=== PATIENT | female | born 1990 | race Caucasian/White ===

== ENCOUNTER 2020-11-27 17:04 | Emergency (ER) | payer OTHER, SELFPAY ==
[2020-11-27 17:10] VITALS: BP 126/89; PULSE 92; RESP 14; TEMP 36.2; O2SAT 97
--- NOTE | 2020-11-27 17:32 | ED.GENADUL_ITS ---
Discharge Plan Disposition Patient Disposition: HOME Condition: Improving Discharge Details Clinical Impression: Contusion of jaw Primary Care Provider: Unknown,Unknown ED Provider: Gloria Sales Home Meds and New Rx's Prescriptions: Continued norgestimate-ethinyl estradiol [Sprintec (28)] 0.25-35 mg-mcg tablet RF: 0 sertraline 100 mg tablet RF: 0 Discharge Instructions Instructions: Contusion in Adults (ED) Additional Instructions: Please continue with Tylenol and/or ibuprofen as needed for discomfort. Please continue to ice the area to help with discomfort. Please follow-up with occupational health to have this rechecked next 1 to 2 weeks. Please continue with soft foods to help with comfort. Please return with any new or worsening symptoms. Discharge Data Discharge Date/Time-TO BE ENTERED AT DEPARTURE: 11/27/20 18:33 Medical Decision Making Patient is a pleasant 30-year-old female. 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 Prior to her checking in, she had been placing a Jones in a combative trauma patient. While placing the Jones, the patient has been sedated and intubated however, she states the patient began to wake up and made her in the left side of her lower jaw. She denies falling. No loss conscious. She states that this did push her bottles into her left eye. Is initially her vision was slightly blurry. This is since resolved. Denies any persistent pain in the left eye. Patient was able to continue placing Jones and continue with her job. Do not see any evidence to suggest significant intracranial injury, eye injury. However, she does have persistent pain along the jawline on the left side. Denies any malocclusion position. Does not have any pain with biting down. Patient and I discussed imaging. she would like to hold off at this time. I do not see any evidence to suggest a fracture time. She would like to hold off on any imaging at this point. Rather, we will give IM Toradol, Tylenol and reassess. After the patient received these medications, she reports that her pain is improved. She will continue to ice area. She will continue to use Tylenol and [place] as needed for discomfort. Return precautions were discussed. I have asked that she follow-up with occupational health for reevaluation in the next 1 to 2 weeks. All of her questions and concerns were addressed and she is in agreement this plan. HPI General Mode of arrival: ambulatory . Date/Time Provider Initiated Documentation: 11/27/20 17:32 . Limitations to Documentation: no limitations . Information obtained by: patient and RN notes reviewed . History of Present Illness 30 year old F presents to the emergency department with the chief complaint of Left lower jaw pain, described as moderate, with intensity rated at 5. Quality is described as aching, and is localized to the face. Patient reports no radiation. Patient started experiencing this minute(s) and it has been constant. No relieving factors improve symptom(s), Other factors that worsen symptoms (Pressure) . Patient notes headaches; denies confusion, chest pain, nausea/vomiting, rash, syncope and weakness. Patient did receive the following treatments prior to arrival, none Related Data Home Medications Medication Instructions Recorded Confirmed norgestimate-ethinyl estradiol tab 11/27/20 11/27/20 [Sprintec (28)] sertraline mg 11/27/20 11/27/20 Allergies Allergy/AdvReac Type Severity Reaction Status Date / Time amoxicillin Allergy Hives Unverified 11/27/20 17:15 General Stated Complaint: Trauma RACHANA: 3 Review of Systems Constitutional Constitutional: Reports as per HPI, Denies chills, Denies fatigue, Denies fe maki(s) and Reports headache(s) Eyes Eyes: Reports as per HPI ENT Ears, Nose, Mouth, and Throat: Reports as per HPI, Denies abnormal hearing, Denies dental pain, Denies vertigo, Reports dizziness (Reports that she felt lightheaded but this is resolving), Denies ear discharge, Denies otalgia, Reports headache(s), Denies lip swelling, Denies epistaxis, Denies neck pain, Denies nose pain and Denies tongue swelling Cardiovascular Cardiovascular: Reports as per HPI, Denies chest pain and Denies lightheadedness Respiratory Respiratory: Denies cough Musculoskeletal Musculoskeletal: Denies neck pain Integumentary/Breasts Skin/Breast: Reports as per HPI, Denies rash, Denies skin pain and Denies skin swelling Neurologic Neurologic: Denies abnormal hearing, Denies vertigo, Reports dizziness (Reports that she felt lightheaded but this is resolving), Reports headache(s) and Denies radicular pain Endocrine Endocrine: Denies fatigue Allergic/Immunologic Allergic/Immunologic: Denies lip swelling and Denies tongue swelling [facility] Social History Smoking/Tobacco Use Status: Never Smoking risk assessment performed?: Yes Substance use type: does not use Current gender identity: female Exam Const General: cooperative, healthy appearing, uncomfortable, no acute distress, well developed and well groomed Nutritional Appearance: average body habitus and well nourished Orientation: alert, awake and oriented x3 HENMT Head: normal to inspection, no palpable skull fracture, normocephalic, atraumatic, no Epstein's sign, no contusions and no lacerations Ears: hearing grossly normal bilaterally and external ears normal General nose exam: external nose normal and nares normal Face and sinus: normal facial exam, sinuses nontender, face symmetric, no crepitus, no ecchymosis, no erythema, no edema, no fluctuance, no lacerations, no maxillary instability and tenderness on the left mandible Face images: 1. Area of discomfort. Pain is elicited with palpation. No appreciable swelling, ecchymosis. No findings on exam to suggest fracture. She is able to bite and break tongue depressor on both sides of her jaw. No evidence of malocclusion. Good range of motion of her TMJ. Mouth: oral mucosae normal, lip normal, moist mucous membranes, No mouth trauma, no muffled voice, no trismus and No restricted motion Teeth and gingiva: dentition normal and gingiva normal Throat: posterior oropharynx normal, tonsils normal and uvula midline Eyes General: appearance normal, both eyes and all related structures Alignment and Position: alignment normal and position normal Periorbital: periorbital findings normal Eyelids: eyelids normal Conjunctivae: conjunctivae normal Pupils: PERRL EOM: EOM intact bilaterally Neck Neck: normal visual inspection and full ROM Resp Effort & Inspection: normal respiratory effort, able to speak in complete sen tences and no respiratory distress Skin General skin exam: no rashes or lesions noted Neuro General: patient alert, patient awake and patient oriented x3 Cranial Nerves: CN's II-XI intact bilaterally Cognition: normal cognition Speech: speech normal Gait: normal gait Psych Appearance: grossly normal and well kempt Mental Status: mental status grossly normal Speech and Movement: speech and movement normal Course Vital Signs Vital signs: Vital Signs Temperature 36.2 C L 11/27/20 17:10 Pulse 92 H 11/27/20 17:10 Respiratory Rate 14 11/27/20 17:10 Blood Pressure 126/89 11/27/20 17:10 Pulse Oximetry 97 11/27/20 17:10 Temperature 36.2 C L 11/27/20 17:10 Temperature Source Temporal Artery Scan 11/27/20 17:10 Pulse 92 H 11/27/20 17:10 Respiratory Rate 14 11/27/20 17:10 Respiratory Effort 11/27/20 17:17 Blood Pressure 126/89 11/27/20 17:10 Blood Pressure Position Supine 11/27/20 17:10 Pulse Oximetry 97 11/27/20 17:10 Oxygen Delivery Method Room Air 11/27/20 17:10 Oxygen Flow Rate 0 11/27/20 17:10 Pain Level 5 11/27/20 17:10
[2020-11-27] MEDS: Acetaminophen 500 MG TAB 1000 MG PO (17:58)
[2020-11-27] MEDS: Ketorolac 30 MG/ML VIAL IVP (17:59)
--- NOTE | 2020-11-27 18:25 | NUR.NOTE ---
Nursing Note: Referral to Occupational Health given to Care Management. Cher Winkler
== END 2020-11-27 18:33 | disposition home or self-care (01) ==
PROVIDERS: Emergency Provider Physician Assistant
DX: S00.83XA Contusion of other part of head, initial encounter (principal); W50.0XXA Accidental hit or strike by another person, initial encounter; Y99.0 Civilian activity done for income or pay
CPT/HCPCS: 96372; 99284; J1885

== ENCOUNTER 2020-12-20 12:56 | Emergency (ER) | payer OTHER, SELFPAY ==
[2020-12-20 13:00] VITALS: BP 142/91; PULSE 124; RESP 18; TEMP 36.4; O2SAT 99
[2020-12-20] MEDS: Ketorolac 60 MG/2 ML VIAL IM (13:54)
--- NOTE | 2020-12-20 13:56 | ED.GENADUL_ITS ---
Discharge Plan Disposition Patient Disposition: HOME Condition: Stable Discharge Details Clinical Impression: Back pain with right-sided radiculopathy Primary Care Provider: Umer Benoit ED Provider: Stef Alan Home Meds and New Rx's Prescriptions: New oxycodone-acetaminophen [Percocet] 5-325 mg tablet 1 tab PO Q8H PRNQty: 8 RF: 0 Continued hydroxyzine HCl 25 mg tablet 25 mg PO PRN PRNRF: 0 cyclobenzaprine 5 mg tablet 5 mg PO TID PRN PRNRF: 0 norgestimate-ethinyl estradiol [Sprintec (28)] 0.25-35 mg-mcg tablet 1 tab PO DAILY RF: 0 sertraline 100 mg tablet 100 mg PO DAILY RF: 0 Discharge Instructions Instructions: Back Pain (ED) Additional Instructions: Percocet as directed, may cause drowsiness and/or constipation. Do not operate machinery while taking this medication. You may want to use lvby-sby-obmwdek stool softeners while taking this medication. Vjiu-twx-yiwfcta anti- inflammatories as directed. Gentle stretching as tolerated. Cool and/or warm compresses every 2 hours for 20 minutes. Please watch for new or worsening symptoms and return to the ER for any concerns. I strongly recommend reaching out your back specialist tomorrow for prompt outpatient reevaluation. Stand Alone Forms: Work Release Discharge Data Discharge Date/Time-TO BE ENTERED AT DEPARTURE: 12/20/20 15:10 Medical Decision Making 30-year-old female presents with 7 out of 10 back pain that began over the weekend after moving. No obvious trauma. Clinically she is uncomfortable but is neurologically intact. No history of IV drug use, no midline point tenderness. She is afebrile. Has taken epue-zac-ppqrbrv medication with little relief. Given the lack of trauma, I do not feel that advanced imaging is ind icated today. Appears to be acute on chronic back pain with radiculopathy. Patient has a history of 2 discectomies. Discussed options, she can get a ride home. We will give a single dose of IM Toradol and morphine and reassess. Upon reassessment patient reports moderate relief of her discomfort. She will continue taking aogc-rfo-fjdphud anti-inflammatory medication. She will stop taking any Flexeril as I see no indication as she has no spasms. I will provide a short-term prescription of narcotic medication. Encouraged to alternate between cool and warm compresses, gentle stretching as tolerated, she will contact her back specialty team on Thursday for prompt outpatient reevaluation. Will be given a work note for the next 2 nights. Encouraged to return to the ER for new or worsening symptoms. Medical Records Medical records reviewed: Yes I reviewed the patient's medical records. HPI General Mode of arrival: ambulatory . Date/Time Provider Initiated Documentation: 12/20/20 12:57 . Limitations to Documentation: no limitations . Information obtained by: patient . HPI Narrative: This is a 30-year-old female, past medical history that includes chronic back pain status post 2 discectomies, in 2012 and 2015. She states that she lives in a chronic pain 2 or 3 out of 10, typically well controlled with Tylenol and/or Motrin. Occasionally her symptoms flareup, but she can usually manage on her own. She states that over the weekend she moved but unsure of any obvious trauma. Pain has worsened since then. Is in her right lower back and travels down her right leg but not past her knee. She denies numbness, tingling, weakness but reports that her legs feel heavy. She denies any fever, history of IV drug use, abdominal pain, nausea, vomiting, vaginal bleeding or discharge, dysuria, hematuria, urinary or bladder incontinence or retention. She took a Flexeril that she had at home with little relief. Related Data Home Medications Medication Instructions Recorded Confirmed norgestimate-ethinyl estradiol 1 tab PO DAILY 11/27/20 12/20/20 [Sprintec (28)] sertraline 100 mg PO DAILY 11/27/20 12/20/20 cyclobenzaprine 5 mg PO TID PRN PRN 12/20/20 12/20/20 hydroxyzine HCl 25 mg PO PRN PRN 12/20/20 12/20/20 oxycodone-acetaminophen [Percocet] 1 tab PO Q8H PRN #8 tab 12/20/20 Previous Rx's Medication Instructions Recorded oxycodone-acetaminophen [Percocet] 1 tab PO Q8H PRN #8 tab 12/20/20 Allergies Allergy/AdvReac Type Severity Reaction Status Date / Time amoxicillin Allergy Hives Unverified 11/27/20 17:15 General Stated Complaint: Nk/Back Pain RACHANA: 3 Review of Systems Constitutional Constitutional: Denies fatigue, Denies fever(s) and Denies weakness Cardiovascular Cardiovascular: Denies chest pain and Denies dyspnea Respiratory Respiratory: Denies cough and Denies dyspnea Gastrointestinal Gastrointestinal: Denies abdominal pain, Denies nausea and Denies vomiting Genitourinary Genitourinary: Denies urinary incontinence and Denies urinary hesitancy Musculoskeletal Musculoskeletal: Reports back pain, Denies numbness, Reports stiffness and Denies tingling Integumentary/Breasts Skin/Breast: Denies rash Neurologic Neurologic: Denies numbness, Denies tingling and Denies weakness Endocrine Endocrine: Denies fatigue [facility] Social History Smoking/Tobacco Use Status: Never Smoking risk assessment performed?: Yes Substance use type: does not use Current gender identity: female Do you feel safe at home: Yes Do you feel safe in your relationship?: Yes Exam Const General: cooperative, healthy appearing and no acute distress Orientation: alert and awake HENWI Head: normal to inspection, normocephalic and atraumatic Mouth: moist mucous membranes Eyes General: appearance normal, both eyes and all related structures Conjunctivae: conjunctivae normal Sclera: sclerae normal Neck Neck: normal visual inspection, full ROM, no meningeal signs, trachea midline and supple Resp Effort & Inspection: normal respiratory effort and able to speak in complete sentences Auscultation: clear to auscultation bilaterally Cardio Rate: regular rate Rhythm: regular rhythm GI Palpation: soft and nontender Back/Spine/Pelvis Back: no CVA tenderness and back tenderness (Diffuse right lumbar, worse over the SI joint. No spasm) Thoracic/Lumbar Spine: straight leg raise positive (Right side, 10 degrees, left negative) Skin General skin exam: no rashes or lesions noted Neuro General: patient alert, patient awake, moves all extremities and no focal motor deficits Motor: muscle tone normal throughout Sensory Exam: no sensory deficits noted Psych Appearance: grossly normal Mental Status: mental status grossly normal Course Vital Signs Vital signs: Vital Signs Temperature 36.4 C L 12/20/20 13:00 Pulse 124 H 12/20/20 13:00 Respiratory Rate 18 12/20/20 13:00 Blood Pressure 142/91 H 12/20/20 13:00 Pulse Oximetry 99 12/20/20 13:00 Temperature 36.4 C L 12/20/20 13:00 Temperature Source Temporal Artery Scan 12/20/20 13:00 Pulse 124 H 12/20/20 13:00 Respiratory Rate 18 12/20/20 13:00 Respiratory Effort Non-Labored 12/20/20 13:04 Blood Pressure 142/91 H 12/20/20 13:00 Blood Pressure Position Sitting 12/20/20 13:00 Pulse Oximetry 99 12/20/20 13:00 Oxygen Delivery Method Room Air 12/20/20 13:00 Oxygen Flow Rate 0 12/20/20 13:00 Pain Level 7 12/20/20 13:00
[2020-12-20 15:17] VITALS: BP 114/77; PULSE 86; RESP 16; TEMP 36.4; O2SAT 98
== END 2020-12-20 15:10 | disposition home or self-care (01) ==
PROVIDERS: Emergency Provider Physician Assistant; PCP Nurse Practitioner Family
DX: M54.16 Radiculopathy, lumbar region (principal); X50.9XXA Other and unspecified overexertion or strenuous movements or postures, initial encounter; Y93.E6 Activity, residential relocation; G89.29 Other chronic pain
CPT/HCPCS: 96372; 99284; J1885

== ENCOUNTER 2021-02-07 00:49 | Outpatient (CLI) | payer OTHER, SELFPAY ==
--- NOTE | 2021-02-07 | DI.MRI_ITS ---
EXAM: MR LUMBAR SPINE WO CLINICAL HISTORY: BACK PAIN, M54.9,H/O DISECTOMIES. TECHNIQUE: Multiplanar multisequence MRI of the Lumbar spine was performed. I note that axial T1 jo ghted sequence was not performed and therefore this is an incomplete examination to the patient retur ns for this sequence. COMPARISON: There are no prior plain films nor MRI scans for comparison at time of this interpretati on. FINDINGS: Five lumbar vertebrae are presumed. The conus medullaris is located slightly low, at L2 level. There is no evidence of conus mass nor sheets bjacent clumping of intrathecal nerve roots to suggest arachnoiditis. There is no evidence of obviou s cord tethering nor thickened lipomatosis filum terminale.. The distal thecal sac is below the S2 l evel which is the lowest aspect of the field of view here. There are no obvious abnormal findings in the visualized sacral canal. On the uppermost aspect of the field of view we note dilatation of the central canal of the spinal co rd at and above the conus medullaris extending to above the T11 level (which is the uppermost aspect of the field of view here). Bones:There are no fractures nor ominous osseous lesions in the lumbar vertebral bodies and visualize d sacrum. There are Modic type 2 sub endplate fatty marrow changes at L4-5 level. With respect to the individual disc levels... T12-L1: Unremarkable L1-2: Normal disc height and signal. No disc herniation nor central canal stenosis.No foraminal steno sis no facet arthropathy. L2-3: Normal disc height. No disc herniation nor central canal stenosis.No foraminal stenosis.No face t arthropathy. L3-4: Normal disc height. No disc herniation or central canal stenosis.No foraminal stenosis.No face t arthropathy. L4-5: At this level there is moderate-advanced disc height loss and Modic type 2 sub endplate fatty m arrow changes. Slight irregularity of posterior osseous elements noted, possibly related to prior pr ocedure but difficult to evaluate without T1 sequence. There is mild left-sided annular bulging but no prominent disc protrusion at this level. Central canal dimensions are within normal limits. Ther e is no significant foraminal stenosis at this level. Mild degenerative changes are noted in the lef t facet joint. Right facet joint unremarkable. L5-S1: This level exhibits mild disc space narrowing. There is a central-slightly right of center sm all disc protrusion at this level which extends posteriorly 3 millimeters and is approximately 12 mil limeters wide. This contacts the thecal sac. Central canal dimensions are lower normal at this leve l. There is no foraminal stenosis at this level. No significant facet arthropathy. Soft tissues: paraspinal soft tissues appear unremarkable.There is no evidence of abnormal epidural nor paraspinal collection, given that there has apparently been previous instrumentation here. IMPRESSION: 1. There is a small central-slightly right of center disc protrusion at L5-S1 level, as described abo ve. There is no prominent central canal stenosis at this level nor foraminal stenosis. 2. Modic type 2 sub endplate fatty marrow changes at L4-5 level which also exhibits decreased disc he ight but no prominent disc herniation nor canal nor foraminal stenosis. 3. In addition to the conus position being slightly low, there is dilatation of the central canal of the visualized lower spinal cord, this extending above the T11 level which is the most superior aspec t of the field of view here. There is no obvious mass within the spinal cord within the field of vie w here. There is also no evidence of obvious cord tethering. However, the next step appear would be MRI imaging of the thoracic and spinal levels to determine the extent of syringomyelia, the possibil ity of a Chiari malformation/tonsillar ectopia, and to rule out a concerning lesion. When the patien t returns for the study she should also undergo axial T1 weighted sequence the lumbar spine which ivan kong apparently not performed today. DATA REPOSITORY:
== END 2021-02-07 01:09 ==
PROVIDERS: PCP Nurse Practitioner Family; Visit Provider Nurse Practitioner Family
DX: M51.27 Other intervertebral disc displacement, lumbosacral region (principal); G95.0 Syringomyelia and syringobulbia
CPT/HCPCS: 72148

== ENCOUNTER 2021-04-25 06:41 | Outpatient (CLI) | payer OTHER, SELFPAY ==
--- NOTE | 2021-04-25 | DI.MRI_ITS ---
Exam(s) MR LUMBAR SPINE WO EXAM: MR LUMBAR SPINE WO CLINICAL HISTORY: DISPLACEMENT OF LUMBAR INTERVERTEBRAL DISC,M51.26. TECHNIQUE: Multiplanar multisequence MRI was performed. COMPARISON: MR MR LUMBAR SPINE WO from 02/07/2021 FINDINGS: Axial T1 weighted images of the lumbar spine were obtained for completion of the examination from 01/21. Apart from degenerative endplate signal changes, marrow signal is within normal limits. The soft tissues are grossly unremarkable. Complete IMPRESSION: DATA REPOSITORY:
[2021-04-25] MEDS: Normal Saline Flush 10 ML SYR IVP (08:04)
[2021-04-25] MEDS: Gadoterate meglumine 20 ML VIAL IVP (08:05)
--- NOTE | 2021-04-25 08:30 | DI.MRI_ITS ---
Exam(s) MR THORACIC SPINE WO/W EXAM: MR THORACIC SPINE WO/W CLINICAL HISTORY: DISPLACEMENT OF LUMBAR INTERVERTEBRAL DISC,M51.26,LT LEG PAIN. TECHNIQUE: Multiplanar multisequence MRI of the Thoracic spine was performed. CONTRAST MATERIAL: IV Contrast: 20 mL of Dotarem contrast administered. COMPARISON: MR MR LUMBAR SPINE WO from 02/07/2021 FINDINGS: Bones: The vertebral body heights are well maintained. Alignment is satisfactory. The signal characte ristics are unremarkable. There is a hemangioma or fatty rest at the inferior aspect of the T12 verte bral body. Cord: The thoracic cord is normal size and signal intensity. There is dilatation of the central cord canal extending from T9 through T12. Discs: No disc herniation or bulge is present. Soft tissues: Normal. There is no evidence of suspicious enhancement. IMPRESSION: 1. 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 2. No evidence of a mass or abnormal enhancement. DATA REPOSITORY:
== END 2021-04-25 07:01 ==
PROVIDERS: PCP Nurse Practitioner Family; Visit Provider Orthopaedic Surgery Orthopaedic Surgery of the Spine
DX: M79.605 Pain in left leg (principal); M51.26 Other intervertebral disc displacement, lumbar region
CPT/HCPCS: 72148; 72157

== ENCOUNTER 2021-06-19 06:01 | Emergency (ER) | payer OTHER, SELFPAY ==
[2021-06-19 06:04] VITALS: BP 142/98; PULSE 111; RESP 18; TEMP 36.4
--- NOTE | 2021-06-19 06:08 | ED.GENADUL_ITS ---
Discharge Plan Disposition Patient Disposition: HOME Condition: Good Discharge Details Clinical Impression: Spasm of muscle of lower back Primary Care Provider: Umer Benoit ED Provider: Ubaldo Cheney Meds and New Rx's Prescriptions: Continued hydroxyzine HCl 25 mg tablet 25 mg PO PRN PRNRF: 0 cyclobenzaprine 5 mg tablet 5 mg PO TID PRN PRNRF: 0 norgestimate-ethinyl estradiol [Sprintec (28)] 0.25-35 mg-mcg tablet 1 tab PO DAILY RF: 0 sertraline 100 mg tablet 100 mg PO DAILY RF: 0 Discharge Instructions Additional Instructions: Home to take it easy rest of today. Heat and gentle stretching to try to relieve the spasm. Ibuprofen or acetaminophen as needed for pain. Use your cyclobenzaprine if needed. Follow-up with primary care or occupational health if not improving. Return to ED for new or worsening pain, neurologic change, bladder or bowel dysfunction. Medical Decision Making Patient will be given dose of IM ketorolac and IM Norflex. She will be released from work to go home and rest. She has her own medications at home as needed for back spasm which is a chronic intermittent problem. If no improvement will need to follow-up with occupational health or primary care. Return to ED for new/worsening pain, neurologic change, bladder or bowel dysfunction. HPI General Mode of arrival: ambulatory . Date/Time Provider Initiated Documentation: 06/19/21 06:08 . Limitations to Documentation: no limitations . Information obtained by: patient and RN notes reviewed . HPI Narrative: Patient here with back pain. Patient has history of back problems with back surgery. 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 She has developed severe back spasm in the left lower back. She has had this in the past. Typically resolves but this seems to just getting worse. She has no neurologic complaints. She is ambulatory but uncomfortable. Related Data Home Medications Medication Instructions Recorded Confirmed norgestimate-ethinyl estradiol 1 tab PO DAILY 11/27/20 06/19/21 [Sprintec (28)] sertraline 100 mg PO DAILY 11/27/20 06/19/21 cyclobenzaprine 5 mg PO TID PRN PRN 12/20/20 06/19/21 hydroxyzine HCl 25 mg PO PRN PRN 12/20/20 06/19/21 Allergies Allergy/AdvReac Type Severity Reaction Status Date / Time amoxicillin Allergy Hives Unverified 11/27/20 17:15 General Stated Complaint: Nk/Back Pain RACHANA: 4 Review of Systems Narrative: As documented in HPI otherwise negative as below. Const: no fever, chills, weakness Resp: no cough, SOB, pleuritic pain CV: no CP, diaphoresis, edema, syncope GI: no abdominal pain, nausea, vomiting, diarrhea Neuro: no headache, numbness, focal weakness, confusion PFSH Medical History No significant past medical history Surgical History Previous back surgery Social History Smoking/Tobacco Use Status: Never Smoking risk assessment performed?: Yes Substance use type: does not use Current gender identity: female Do you feel safe at home: Yes Do you feel safe in your relationship?: Yes Exam Narrative Exam Narrative: Const: WDWN female who appears uncomfortable. HEENT: NC/AT. Normal facial exam. Eyes: Normal conjunctiva and sclera. Neck: Supple. Trachea midline. Lungs: Normal respiratory effort Back: Tenderness with spasm in the left lower lumbar area. Decreased range of motion due to pain and stiffness. No midline tenderness Neuro: A+O x 3. Normal speech, mentation, gait. Cranial nerves II - XII grossly intact. No gross motor or sensory deficit. Ext: No C/C/E. Skin: Warm and dry without rash. Course Vital Signs Vital signs: Vital Signs Temperature 97.5 F L 06/19/21 06:04 Pulse 111 H 06/19/21 06:04 Respiratory Rate 18 06/19/21 06:04 Blood Pressure 142/98 H 06/19/21 06:04 Temperature 97.5 F L 06/19/21 06:04 Temperature Source Skin 06/19/21 06:04 Pulse 111 H 06/19/21 06:04 Respiratory Rate 18 06/19/21 06:04 Blood Pressure 142/98 H 06/19/21 06:04
[2021-06-19] MEDS: Ketorolac 60 MG/2 ML VIAL IM (06:33)
[2021-06-19] MEDS: Orphenadrine 60 MG/2 ML VIAL IM (06:34)
== END 2021-06-19 06:35 | disposition home or self-care (01) ==
PROVIDERS: Emergency Provider Emergency Medicine; PCP Nurse Practitioner Family
DX: M62.830 Muscle spasm of back (principal)
CPT/HCPCS: 96372; 99284; J2360; 99283; J1885

== ENCOUNTER 2021-09-01 17:43 | Emergency (ER) | payer OTHER, SELFPAY ==
[2021-09-01] VITALS (51 sets, daily range): BP systolic 93–125; BP diastolic 71–92; PULSE 96–113; RESP 10–21; TEMP 36.4; O2SAT 95–99
--- NOTE | 2021-09-01 17:45 | RT.EKG_ITS ---
APPROVED REPORT Exam: Resting ECG Reason for Exam: nini matta Patient Location: E HR:98 bpm ECG Measurements Heart Rate 98 AXIS OR 153 P 64 QRSd 86 QRS 50 QT 360 T 27 QTc 460 Conclusion Sinus rhythm...normal P axis, V-rate 60- 99 Probable left atrial enlargement...P >50mS, <-0.10mV V1 Nonspecific T abnormalities, lateral leads...T <-0.10mV, I aVL V5 V6
--- NOTE | 2021-09-01 18:31 | ED.GENADUL_ITS ---
Discharge Plan Disposition Patient Disposition: HOME Condition: Stable Discharge Details Clinical Impression: COVID-19 Primary Care Provider: Umer Benoit ED Provider: Manuel Reed Home Meds and New Rx's Prescriptions: Continued hydroxyzine HCl 25 mg tablet 25 mg PO PRN PRNRF: 0 cyclobenzaprine 5 mg tablet 5 mg PO TID PRN PRNRF: 0 norgestimate-ethinyl estradiol [Sprintec (28)] 0.25-35 mg-mcg tablet 1 tab PO DAILY RF: 0 sertraline 100 mg tablet 100 mg PO DAILY RF: 0 Discharge Instructions Instructions: COVID-19 (Coronavirus Disease 2019) (ED), Instructions for Self Monitoring Oxygen Saturation Additional Instructions: Please maintain isolation until cleared by your physician or health department. Please contact your primary care physician to arrange follow-up. Return to the ER immediately for any worsening or new concerning symptoms. Referrals: Umer Benoit, [employer] [Primary Care Provider] - Medical Decision Making 30-year-old female tested positive for Covid on August 23, now with increased cough today. Patient has shortness of breath only with coughing fits. She has no shortness of breath at baseline. She is saturating well. Patient is tachycardic which I suspect is secondary to her infectious process but will consider pulmonary embolism. Screening EKG was reviewed and interpreted by me to assess for arrhythmia: Please see report, sinus tachycardia D-dimer negative. Labs reviewed and nondiagnostic. No leukocytosis. Plan will be for discharge with outpatient follow-up. Patient was provided pulse oximeter and instructed on when to return if she develop hypoxia or worsening condition. Usual customary discharge instructions were reviewed with the patient. HPI General Mode of arrival: ambulatory . Date/Time Provider Initiated Documentation: 09/01/21 17:47 . Limitations to Documentation: no limitations . Information obtained by: patient . HPI Narrative: 30-year-old female presents with chief complaint of cough. Patient notes she was diagnosed with Covid on 08/23/2021. She has had mostly aches and congestion until today she developed severe cough. Cough comes in fits. She has mild associated shortness of breath when she has coughing fits but does not have shortness of breath at baseline. No chest pain. No leg swelling or calf pain. Patient does not have a pulse ox at home. Patient does know she is fully vaccinated. Related Data Home Medications Medication Instructions Recorded Confirmed norgestimate-ethinyl estradiol 1 tab PO DAILY 11/27/20 09/01/21 [Sprintec (28)] sertraline 100 mg PO DAILY 11/27/20 09/01/21 cyclobenzaprine 5 mg PO TID PRN PRN 12/20/20 09/01/21 hydroxyzine HCl 25 mg PO PRN PRN 12/20/20 09/01/21 Allergies Allergy/AdvReac Type Severity Reaction Status Date / Time amoxicillin Allergy Hives Unverified 11/27/20 17:15 General Stated Complaint: RespSymp RACHANA: 3 Review of Systems Constitutional Constitutional: Reports body ache(s) and Reports fever(s) Cardiovascular Cardiovascular: Denies chest pain Respiratory Respiratory: Reports cough Gastrointestinal Gastrointestinal: Denies abdominal pain Musculoskeletal Musculoskeletal: Reports myalgias [facility] Medical History No significant past medical history Surgical History Previous back surgery Social History Smoking/Tobacco Use Status: Never Smoking risk assessment performed?: Yes Substance use type: does not use Current gender identity: female Do you feel safe at home: Yes Do you feel safe in your relationship?: Yes Exam Const General: cooperative and no acute distress Nutritional Appearance: well nourished Orientation: alert and awake Eyes Conjunctivae: normal conjunctivae Sclera: normal sclerae Neck Neck: trachea midline and supple Resp Effort & Inspection: normal respiratory effort, cough and not labored Auscultation: no rales, rhonchi and no wheezes Cardio Rate: tachycardic Rhythm: regular rhythm GI Palpation: soft, not firm, no guarding, no masses, not rigid and nontender Skin General skin exam: no rashes or lesions noted and turgor normal Neuro General: patient alert, patient awake, patient oriented x3 and tone normal Extrem General: no calf tenderness and no edema Psych Appearance: grossly normal Mental Status: mental status grossly normal Course Vital Signs Vital signs: Vital Signs Temperature 36.4 C L 09/01/21 17:50 Pulse 113 H 09/01/21 17:50 Respiratory Rate 18 09/01/21 17:50 Blood Pressure 119/86 09/01/21 17:50 Pulse Oximetry 99 09/01/21 17:50 Temperature 36.4 C L 09/01/21 17:50 Temperature Source Temporal Artery Scan 09/01/21 17:50 Pulse 113 H 09/01/21 17:50 Respiratory Rate 18 09/01/21 17:50 Respiratory Effort 09/01/21 18:15 Respiratory Depth Normal 09/01/21 18:15 Blood Pressure 119/86 09/01/21 17:50 Blood Pressure Position Sitting 09/01/21 17:50 Pulse Oximetry 99 09/01/21 17:50 Oxygen Delivery Method Room Air 09/01/21 17:50 Oxygen Flow Rate 0 09/01/21 17:50
[2021-09-01 18:58] LABS: Absolute Basophil Count 0.01 10^3/uL (0.0-0.2); Absolute Lymphocyte Count 2.95 10^3/uL (1.2-3.4); Absolute Monocyte Count 0.56 10^3/uL (0.1-0.8); Absolute Neutrophil Count 3.68 10^3/uL (1.2-6.7); Basophils % 0.1; Eosinophils % 1.4; HCT 39.8 % (36.0-46.0); Lymphocytes % 40.4; MCHC 32.7 % (32.0-36.0); MCV 88.8 fL (80-95); MPV 10.1 fL (8.0-11.0); Monocytes % 7.7; Neutrophils % 50.4; Nucleated RBC 0 %; Platelet Count 350 10^3/uL (130-400); RBC 4.48 10^6/uL (3.93-5.22); RDW 12.3 % (11.7-14.6); RDW-SD 39.9 fL
[2021-09-01 19:26] LABS: Albumin 3.6 g/dL (3.4-5.0); BUN 12 mg/dL (7-18); Bilirubin, Total 0.4 mg/dL (0.2-1.0); CREATININE 0.9 mg/dL (0.55-1.02); Calcium 8.8 mg/dL (8.5-10.1); Glucose 93 mg/dL (74-106); Total Protein 7.7 g/dL (6.4-8.2)
[2021-09-01 19:27] LABS: ALT 41 U/L (14-59); AST 23 U/L (15-37); Alkaline Phosphatase 94 U/L (46-116); Anion Gap 7.5 mmol/L (3-11); CO2 30.5 mmol/L (21.0-32.0); Chloride 104 mmol/L (98-107); Potassium 3.7 mmol/L (3.5-5.1); Sodium 142 mmol/L (136-145)
[2021-09-01 19:32] LABS: D-Dimer 280 ng/mlFEU (<500)
[2021-09-01 19:33] LABS: Troponin I < 0.05 ng/mL (<0.06)
== END 2021-09-01 19:54 | disposition home or self-care (01) ==
PROVIDERS: Emergency Provider Student in an Organized Health Care Education/Training Program; PCP Nurse Practitioner Family
DX: U07.1 COVID-19 (principal); R05.1 Acute cough; R06.02 Shortness of breath; R00.0 Tachycardia, unspecified
CPT/HCPCS: 36415; 80053; 93005; 99285; 84484; 85025; 85379; 93010; 99284

== ENCOUNTER 2021-09-24 16:06 | Outpatient (REF) | payer OTHER, SELFPAY ==
[2021-09-26 11:00] LABS: Measles IgG Antibody Positive (See Note); Mumps Antibody IgG Positive (See Note)
[2021-09-26 11:02] LABS: Rubella IgG Ab (UVM) Positive (See Note)
== END 2021-09-24 16:07 | disposition home or self-care (01) ==
LOC: LBN 16:06
PROVIDERS: PCP Nurse Practitioner Family; Visit Provider Physician Assistant
DX: Z02.0 Encounter for examination for admission to educational institution (principal)
CPT/HCPCS: 86735; 86762; 86765

== ENCOUNTER 2021-12-13 09:06 | Emergency (ER) | payer OTHER, SELFPAY ==
[2021-12-13 09:11] VITALS: BP 135/89; PULSE 140; RESP 18; TEMP 36.7; O2SAT 100
--- NOTE | 2021-12-13 09:30 | W.ED.GENAD ---
Discharge Plan Disposition Patient Disposition: HOME Condition: Stable Discharge Details Clinical Impression: Acute lumbar radiculopathy Primary Care Provider: Umer Benoit ED Provider: Belle Page Home Meds and New Rx's Prescriptions: New orphenadrine citrate 100 mg tablet extended release 100 mg PO BID Qty: 14 RF: 0 oxycodone 5 mg capsule 5 mg PO Q8H PRNQty: 5 RF: 0 dexamethasone [Decadron] 4 mg tablet 4 mg PO DAILY Qty: 5 RF: 0 Continued hydroxyzine HCl 25 mg tablet 25 mg PO PRN PRNRF: 0 cyclobenzaprine 5 mg tablet 5 mg PO TID PRN PRNRF: 0 norgestimate-ethinyl estradiol [Sprintec (28)] 0.25-35 mg-mcg tablet 1 tab PO DAILY RF: 0 sertraline 100 mg tablet 100 mg PO DAILY RF: 0 Discharge Instructions Additional Instructions: No lifting greater than 5 pounds, light stretches as tolerated Continue to be active Take Decadron for the next 5 days Follow-up with your neurosurgeon and PCP as tolerated Referrals: Milan Enriquez [ NON-[facility] STAFF PHYSICIAN] - Discharge Data Discharge Date/Time-TO BE ENTERED AT DEPARTURE: 12/13/21 11:08 Medical Decision Making <BALDEMAR Barrera - Last Filed: 12/14/21 08:46> After morphine, Norflex, steroid, patient symptomatically improved, ambulatory with steady gait No clinical evidence of cauda equina syndrome No fever or history of IV drug abuse No indication on my clinical exam today for emergent MRI and patient did have MRI of lumbar spine and thoracic spine that was reviewed from April 2021 that showed syringomyelia We will follow-up with neurosurgery in the outpatient setting and her PCP Does not work until next Thursday, does not need a work note supplied Will place on prednisone taper, a very small amount of opiate analgesia for home with risks discussed, and we will change her Flexeril to Norflex Return precautions discussed with patient understanding Medical Records Medical records reviewed: Yes I reviewed the patient's medical records. Lab Data Lab results reviewed: Yes I reviewed the patient's lab results. <Manuel Reed MD - Last Filed: 12/21/21 08:37> Patient seen, examined, and discussed with BALDEMAR Page. I agree with treatment plan as discussed/documented. HPI <BALDEMAR Barrera - Last Filed: 12/14/21 08:46> General Mode of arrival: wheelchair. Date/Time Provider Initiated Documentation: 12/13/21 09:15. Limitations to Documentation: no limitations. Information obtained by: patient. HPI Narrative: This 31-year-old female with history of previous back surgery/low back pain presents with report of right mid and lower back pain which radiates into her right lower extremity. She states that she was doing a kettle villatoro workout yesterday afternoon and she felt high after the workout but denies any known trauma. She states she was lifting 15 pounds kettle bells. She took some ibuprofen and Tylenol last evening and despite that the pain continued to worsen. She states that secondary to pain her right leg has been giving out . She denies any fever or chills. She denies any strength or sensation changes to her extremities. She denies any saddle anesthesia. She has no history of IV drug abuse. She denies any chance of . The pain is reportedly exacerbated with movement. Related Data Home Medications Medication Instructions Recorded Confirmed norgestimate-ethinyl estradiol 1 tab PO DAILY 11/27/20 12/13/21 [Sprintec (28)] sertraline 100 mg PO DAILY 11/27/20 12/13/21 cyclobenzaprine 5 mg PO TID PRN PRN 12/20/20 12/13/21 hydroxyzine HCl 25 mg PO PRN PRN 12/20/20 12/13/21 dexamethasone [Decadron] 4 mg PO DAILY #5 tab 12/13/21 orphenadrine citrate 100 mg PO BID #14 tab 12/13/21 oxycodone 5 mg PO Q8H PRN #5 cap 12/13/21 Previous Rx's Medication Instructions Recorded dexamethasone [Decadron] 4 mg PO DAILY #5 tab 12/13/21 orphenadrine citrate 100 mg PO BID #14 tab 12/13/21 oxycodone 5 mg PO Q8H PRN #5 cap 12/13/21 Allergies Allergy/AdvReac Type Severity Reaction Status Date / Time amoxicillin Allergy Hives Unverified 12/13/21 09:16 droperidol AdvReac Unverified 12/13/21 09:16 General Stated Complaint: Nk/Back Pain RACHANA: 3 Review of Systems <BALDEMAR Barrera Last Filed: 12/14/21 08:46> All systems reviewed & are unremarkable except as noted in HPI and below PFSH <BALDEMAR Barrera - Last Filed: 12/14/21 08:46> All Active Problems Spasm of muscle of lower back (Acute) COVID-19 (Acute) Acute lumbar radiculopathy (Acute) Previous back surgery (Acute) Medical History No significant past medical history Surgical History Previous back surgery Social History Smoking/Tobacco Use Status: Never Smoking risk assessment performed?: Yes Alcohol Intake: current Alcohol Intake frequency: holidays/special occasions only Drug use: Never Substance use type: does not use Current gender identity: female Do you feel safe at home: Yes Do you feel safe in your relationship?: Yes Exam <BALDEMAR Barrera Last Filed: 12/14/21 08:46> Const General: cooperative, comfortable and acute distress Eyes Conjunctivae: conjunctivae normal Resp Effort & Inspection: normal respiratory effort Auscultation: clear to auscultation bilaterally Cardio Rate: regular rate Rhythm: regular rhythm Other: Distal pulses intact GI Other: No CVA tenderness, no abdominal tenderness Back/Spine/Pelvis Other: No midline tenderness, paraspinal tenderness in the lumbar spine region Skin General skin exam: no rashes or lesions noted Neuro General: patient alert and patient oriented x3 Speech: speech normal Gait: normal gait Sensory Exam: no sensory deficits noted Other: Strength and sensation intact distally, DTRs intact all 4 extremities Negative straight leg raise Extrem Other: No calf swelling or tenderness Course <BALDEMAR Barrera Last Filed: 12/14/21 08:46> Vital Signs Vital signs: Vital Signs Temperature 36.7 C 12/13/21 09:11 Pulse 140 H 12/13/21 09:11 Respiratory Rate 18 12/13/21 09:11 Blood Pressure 135/89 12/13/21 09:11 Pulse Oximetry 100 12/13/21 09:11 Temperature 36.7 C 12/13/21 09:11 Temperature Source Temporal Artery Scan 12/13/21 09:11 Pulse 140 H 12/13/21 09:11 Respiratory Rate 18 12/13/21 09:11 Respiratory Effort Non-Labored 12/13/21 09:14 Blood Pressure 135/89 12/13/21 09:11 Blood Pressure Position Sitting 12/13/21 09:11 Pulse Oximetry 100 12/13/21 09:11 Oxygen Delivery Method Room Air 12/13/21 09:11 Oxygen Flow Rate 0 12/13/21 09:11 Pain Level 8 12/13/21 09:15
[2021-12-13] MEDS: MORPHine 4 MG/ML SYR IVP (09:34)
[2021-12-13] MEDS: Orphenadrine 60 MG/2 ML VIAL IVP (09:35)
[2021-12-13] MEDS: Ketorolac 15 MG/ML VIAL IVP (09:35)
[2021-12-13] MEDS: Dexamethasone 4 MG/ML VIAL IVP (09:59)
[2021-12-13 10:57] VITALS: BP 133/98; PULSE 114; RESP 16; TEMP 37; O2SAT 98
== END 2021-12-13 11:08 | disposition home or self-care (01) ==
PROVIDERS: Emergency Provider Physician Assistant; PCP Nurse Practitioner Family
DX: M54.16 Radiculopathy, lumbar region (principal)
CPT/HCPCS: 36415; 96374; 96375; 99284; J2360; 99283; J1100; J1885; J2270

== ENCOUNTER 2022-03-04 01:23 | Outpatient (CLI) | payer OTHER, SELFPAY ==
--- NOTE | 2022-03-04 10:00 | DI.MRI_ITS ---
Exam(s) MR LUMBAR SPINE WO EXAM: MR LUMBAR SPINE WO CLINICAL HISTORY: BACK PAIN, M54.9; NEW ONSET WEAKNESS W/RT FOOT DORSIFLEXION. TECHNIQUE: Multiplanar multisequence MRI of the Lumbar spine was performed. COMPARISON: MR MR LUMBAR SPINE WO from 02/07/2021 MR MR LUMBAR SPINE WO from 04/25/2021 FINDINGS: Bones: The last intervertebral disc space is designated the L5/S1 level for the numbering purpose of this examination. The vertebral body heights are well maintained. Alignment is satisfactory. Endpla te degenerative signal changes are seen at L3-4, L4-L5 and L5-S1. Cord: The conus tip ends at the L2 level. There is again seen a syrinx in the distal cord. It is u nchanged compared to the prior examination. T12-L1: No disc herniations or bulges are present. No central spinal canal or neural foraminal stenos is. L1-2: No disc herniations or bulges are present. No central spinal canal or neural foraminal stenosis . L2-3: No disc herniations or bulges are present. No central spinal canal or neural foraminal stenosis . L3-4: No disc herniations or bulges are present. No central spinal canal or neural foraminal stenosis . L4-5: No disc herniations or bulges are present. No central spinal canal or neural foraminal stenosis . L5-S1: There is a small central disc herniation. No significant nerve root compression or central sp inal canal stenosis results. No neural foraminal stenosis is present. Soft tissues: The visualized SI joints and sacrum are well maintained. The paraspinal soft tissues ar e unremarkable. Visualized abdominal organs: Unremarkable. IMPRESSION: 1. Persistent small central disc herniation at L5-S1. No significant nerve root compression, central spinal canal or neural foraminal stenosis results. 2. Stable syrinx in the distal spine cord. 3. Degenerative changes in the lower lumbar spine. DATA REPOSITORY:
== END 2022-03-04 01:43 ==
PROVIDERS: PCP Nurse Practitioner Family; Visit Provider Physician Assistant
DX: M54.59 Other low back pain (principal); R29.2 Abnormal reflex; M51.27 Other intervertebral disc displacement, lumbosacral region; M47.817 Spondylosis without myelopathy or radiculopathy, lumbosacral region
CPT/HCPCS: 72148

== ENCOUNTER 2022-08-28 15:32 | Outpatient (CLI) | payer OTHER, SELFPAY ==
--- NOTE | 2022-08-28 | DI.RAD_ITS ---
Exam(s) XR FOOT LT COMPLETE EXAM: XR FOOT LT COMPLETE CLINICAL HISTORY: LT HEEL PAIN, M79.672 TECHNIQUE: COMPARISON: No exams were available for comparison FINDINGS: Three views were obtained. Alignment appears within normal limits. No bony or soft tissue abnormali ty seen. IMPRESSION: RADIATION DOSE DELIVERED: Total DLP
--- OUTSIDE RECORDS SUMMARY | 2022-08-28 15:49 | XMS_ITS | Encounter Summary ---
:1990 [place] [address] Care Team Providers Name Role Phone Unavailable Primary Care Provider Unavailable Encounter Details Date Type Department Care Team Description 02/07/2021 Ancillary Procedure Radiology Library at Arlene Arguello DO [facility] [place] [address] [place] [address] [phone] (Wo rk) Social History Tobacco Use Types Packs/Day Years Used Date Never Smoker Smokeless Tobacco: Never Used Alcohol Use Standard Drinks/Week Comments Yes 1.7 (1 standard drink = 0.6 oz pure alco hol) 1 drink a week socially Alcohol Habits Answer Date Recorded How often do you have a drink containing Not asked alcohol? How many drinks containing alcohol do you have Not asked on a typical day when you are drinking? How often do you have six or more drinks on one Not asked occasion? Comment: 1 drink a week socially 11/04/2017 Sex Assigned at Date Recorded Not on file documented as of this encounter Plan of Treatment Not on filedocumented as of this encounter Procedures Procedure Name Priority Date/Time Associated Diagnosis Comme nts FILM LIBRARY Routine 02/07/2021 12:00 AM Results for this STORAGE ONLY MR EDT procedure ar e in SPINE the results section. documented in this encounter Results Film Library- Storage Only MR Spine (02/07/2021 12:00 AM EDT) Specimen (Source) Anatomical Location Collection Method / Collectio n Time Received Time / Laterality Volume Narrative SABRA PAYNE - 05/16/2021 3:14 PM EDT This exam is auto-finalizing. It's purpo se is for storage only. Jesus Arguello V, IMG FILM LIBRARY ORDERABLES Performing Organization Address City/State/ZIP Code Phon e Number RAD [facility] [place], [place] documented in this encounter Visit Diagnoses Not on filedocumented in this encounter
--- OUTSIDE RECORDS SUMMARY | 2022-08-28 15:49 | XMS_ITS | Encounter Summary ---
:1990 Author Organization [facility] Address [address] [place] [address] Care Team Providers Name Role Phone Keena Domínguez APRN Primary Care Provider Reason for Visit Reason Comments Pain Management new patient, eval for RACHANA Consultation (Routine) - Closed Specialty Diagnoses / Procedures Referred By Contact Refer red To Contact Pain Management Diagnoses Lower extremity pain asses patient for epidural steroid injection Sloan Ospina MD [facility] [address] [place] [address] [place] [address] Phone: Fax: Referral ID Status Reason Start Date Expiration Date Visits Requ ested Visits Authorized [id number] Closed 01/13/2019 01/13/2020 1 1 Encounter Details Date Type Department Care Team Description 01/26/2019 Office Visit Pain Management at [facility], Post laminectomy [place] syndrome [facility] [address] [place] [phone] Social History Tobacco Use Types Packs/Day Years [...] on file documented as of this encounter Last Filed Vital Signs Vital Sign Reading Time Taken Comments Blood Pressure 129/85 01/26/2019 9:57 AM EST Pulse 74 01/26/2019 9:57 AM EST Temperature - - Respiratory Rate - - Oxygen Saturation 100% 01/26/2019 9:57 AM EST Inhaled Oxygen Concentration - - Weight 95.3 kg (210 lb) 01/26/2019 9:57 AM EST Height - - Body Mass Index 36.12 12/27/2018 3:10 PM EST documented in this encounter Patient Instructions Patient InstructionsHuEric chan PA - 01/26/2019 10:00 AM EST Interventions: ?? Schedule LESI (caudal?) TBD by provider doing procedure Medications: ?? No new medications at this time Rehabilitation: ?? None at this time ?? Will consider a round of Chelsie therapy following procedure Psychological: ?? None at this time Follow up: ?? F/u two weeks after LESI procedure documented in this encounter Progress Notes Eric Hidalgo PA - 01/26/2019 10:00 AM EST Images from the original note were not included. PAIN CLINIC CONSULTATION Date of Consultation: January 26, 2019 Referring Physician: Sloan Ospina MD Reason for request of consultation: Evaluation of chronic low back pain s/p surgery in 2017 (L4/5 laminectomy and discectomy) Chief Complaint: Chronic low back pain History of Present Illness: Ms. Sims is a 28 y.o. year-old female who presents to the pain clinic for evaluation of chronic low back pain s/p surgery in 2016 and an earlier surgery in 2013. She saw primary care 12/10/2018 where this history was noted about her back pain: [facility]-is where she had her back surgery was seen in 2017 they suggested gabapentin ?? NEW No feeling outside of R foot right now for 2 weeks ?? Since 2016 had no feeling in R calf X 14 days no feeling into R pinky to Had to leave [employer]-ended up in ER 3 times with that job from back pain Can not wipe her behind due to back [place] time was in PT was last December-went for 4 sessions Did the [employer], [employer], She was working on [employer] at [employer]. The only incident she can remember was with a patient who was being transferred. A strap broke and she twisted. She ended up trying PT. She was getting spasms and lost sensation in her right foot. The second surgery helped resolve symptoms. But, since the second surgery, that incident above is the only one she can think of that might have generated her new symptoms. Now she's having severe muscle spasms on lower right back at night. She's not lifting as much at work. She is still getting shooting pain down the leg--all the way to her right, lateral foot. She feels unstable. She still exercises regularly. But, she feels like the instability is coming right from her surgical site. Patient denies loss of bowel or bladder function. PAIN ASSESSMENT: Description: Shooting, sharp in the leg and muscular tightness in low right back Location: see above Weakness, numbness, tingling: yes Saddle Anesthesia: none Other associated symptoms: feeling unstable Alleviating factors: none she's identified (went to [facility] ED 3x last year--got Flexeril/toradol and that worked for short term fix) Aggravating factors: standing for too long a time; heavy lifting/axial weighting Pain today: 4/10 Best in past week: 2/10--lying down at night--if not getting twinge spasms Worst in past week: 5/10--prolonged standing (does 12 hr shifts) PAST THERAPIES: Acetaminophen: takes about 3 grams a day (helps some) NSAID: advil--about 2400 mg on a bad day (helps some) Opioids: none Storage of opioids:NA Antidepressants: was on amitriptyline but not for this Anticonvulsants: gabapentin--was taking 100mg at night after surgery (didn't help just upset her stomach) Muscle relaxants: Flexeril helps some Topicals: lidocaine cream and patches--help some but doesn't help with spasms Herbal supplements/vitamins: tried tumeric (didn't do anything) Injections: none Surgery: see HPI Physical Therapy: last did beginning of 2018--not helpful TENS: tried at PT Acupuncture: none Chiropractic: tried, relieved some spasms for short period of time Massage: none CBT,Meditation/Imagery: none Yoga/Mick Chi/ Movement: none Marijuana: none Other: heat better than cold but not much relief Current Medications: Outpatient Medications Marked as Taking for the 01/26/19 encounter (Office Visit) with Eric Hidalgo PA Medication Sig Dispense Refill ??? multivitamin (THERAGRAN) Tablet Take 1 tablet by mouth daily. ??? MONO-LINYAH 0.25-35 mg-mcg Tablet TAKE ONE TABLET BY MOUTH EVERY DAY 84 tablet 3 ??? sertraline (ZOLOFT) 25 mg Tablet Take 2 tablets by mouth daily. 180 tablet 3 ??? ibuprofen (ADVIL;MOTRIN) 800 mg Tablet Take 800 mg by mouth every 6 hours as needed for Pain. ??? acetaminophen (TYLENOL) 325 mg Tablet Take 650 mg by mouth 2 times daily. Allergies & Adverse Reactions: Latex; Amoxicillin; and Food allergy formula [[id number]-selen-brom] Problem List: Patient Active Problem List Diagnosis Code ??? Obesity E66.9 ??? Family history of diabetes mellitus (father) Z83.3 ??? Acne L70.9 ??? Gastroparesis K31.84 ??? SVT (supraventricular tachycardia) I47.1 ??? Health care maintenance Z00.00 ??? Previous back surgery Z98.890 ??? Annual physical exam Z00.00 ??? Adjustment disorder with anxiety F43.22 ??? Difficulty sleeping G47.9 ??? Lumbosacral radiculopathy at S1 M54.17 Social History: Social History Socioeconomic History ??? Marital status: Single Spouse name: Not on file ??? Number of children: Not on file ??? Years of education: Not on file ??? Highest education level: Not on file Social Needs ??? Financial resource strain: Not on file ??? Food insecurity - worry: Not on file ??? Food insecurity - inability: Not on file ??? Transportation needs - medical: Not on file ??? Transportation needs - non-medical: Not on file Occupational History ??? Not on file Tobacco Use ??? Smoking status: Never Smoker ??? Smokeless tobacco: Never Used Substance and Sexual Activity ??? Alcohol use: Yes Alcohol/week: 1.0 oz Types: 2 Standard drinks or equivalent per week Comment: 1 drink a week socially ??? Drug use: No ??? Sexual activity: Yes Partners: Male control/protection: Pill, Other-see comments Comment: Barrier and pill Other Topics Concern ??? 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 She lives with her brother in [place], [place]. Family History Family History Problem Relation Age of Onset ??? Heart Disease Mother ??? Coronary Artery Disease Mother ??? Depression Mother ??? Anesthesia Reaction Mother ??? Diabetes Father ??? Hypertension Father ??? Type 2 Diabetes Father ??? Hyperlipidemia Father ??? Asthma Brother ??? Allergies Brother ??? Breast Cancer Maternal Grandmother ??? Osteoporosis Maternal Grandmother ??? Ovarian Cancer Maternal Grandmother ??? Parkinsonism Maternal Grandfather ??? Osteoporosis Paternal Grandmother ??? Heart Disease Paternal Grandmother ??? Alcohol Abuse Paternal Grandfather ??? Liver Disease Paternal Grandfather ??? Cerebrovascular Accident Maternal Uncle Past Medical History: Past Medical History: Diagnosis Date ??? Acid reflux ??? Adjustment disorder with anxiety 12/10/2018 ??? Gastroparesis ??? H/O colonoscopy 07/19/2014 ??? H/O diagnostic ultrasound 04/12/2014 Impression: Normal thyroid sonogram ??? H/O endoscopy Had 3-4 years ago due to vomiting and diarrhea. ??? H/O x-ray of lumbar spine 08/10/2013 Impression: Mild evidence of degenerative disc disease in the lower lumbar spine. ??? History of MRI of spine 08/25/2013 Impression: 1. Large L4-5 disc extrusion with associated moderately severe central canal stenosis. 2. Nonstenotic degenerative changes at L5-S1. ??? Lumbago with sciatica, right side ??? SVT (supraventricular tachycardia) 2015 in the past was controlled with atenolol age 24-resting heart rate is 90's no palp Past Surgical History: Past Surgical History: Procedure Laterality Date ??? APPENDECTOMY 04/19/2010 ??? BACK SURGERY 11/15/2013 Back surgery in 2012, and 2016 ??? CYST REMOVAL Left 2011 Cyst removal left wrist. ??? CYST REMOVAL Left Removal of ganglion cyst of left wrist ??? LUMBAR DISC SURGERY 1st. 10/2013. 2nd. 08/2016. L4,5 shaved at [facility]. ??? PRO COLONOSCOPY, DIAGNOSTIC 06/16/2012 COLONOSCOPY, DIAGNOSTIC performed by DANICA REYNA at [facility] END[facility]COPY ??? PRO COLONOSCOPY, DIAGNOSTIC 07/20/2014 COLONOSCOPY, DIAGNOSTIC performed by Missy David MD at [facility] ENDOSCOPY ??? PRO UPPER GI ENDOSCOPY, DIAGNOSTIC 07/20/2014 EGD, UPPER GI ENDOSCOPY performed by Missy David MD at [facility] END[facility]COPY ??? UPPER GI ENDOSCOPY, EXAM 06/16/2012 UPPER GI ENDOSCOPY performed by DANICA REYNA at [facility] END[facility]COPY ??? 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 [facility] Prescription Monitoring Program was checked and no concerns was found. Review of Systems: Constitutional Denies Fevers, Chills, loss of weight HEENT Denies new hearing problems, vision problems or dental problems. Cardiovascular Denies chest pain, palpitations, ID, hypertension, heart murmur. Respiratory Denies coughgetting over a cold, SOB, wheezing, asthma. GI Denies N/V, Hepatits, yellow jaudice, liver problems. Stool incontinence Denies kidney problems, infections, blood in urine, or kidney stones Musculoskeletal Denies other joint pains, see HPI. Neurologic Denies seizures, convulsions, stroke, shock, frequent headaches, dizziness or passing out. Sleep is okay. Gets 6-8 hours some nights and 4-6 other nights. Psychiatric Denies depression, anxiety taking sertraline, stress or suicidal ideation. Hematologic Denies prolonged bleeding, easy bruising, lymph gland swelling Dermatologic Denies rashes, or other skin problems RISK ASSESSMENT: Smoking: none Alcohol:How often do you have a drink containing alcohol ? occasional Are you now or have you ever used illegal drugs or used a prescription drug for a non-medical reason? none Are you now or in past received methadone or suboxone (buprenorphine) for substance abuse? none Ever participated in drug or alcohol rehabilitation program? none Share your pain medications or accepted pain medications from family/friends? none Ever been incarcerated? none Opioid Risk Tool Female Male 1. Family history of Substance Abuse Alcohol [] 1 [x] 3 Illegal Drugs [] 2 [] 3 Prescription Drugs [] 4 [] 4 2. Personal History of Substance Abuse Alcohol [] 3 [] 3 Illegal Drugs [] 4 [] 4 Prescription Drugs [] 5 [] 5 3. Age (doug box if 16-45) [] 1 [] 1 4. History of Preadolescent Sexual Abuse [] 3 [] 0 5. Psychological Disease Attention Deficit Disorder, Obsessive Compulsive D/o, Bipolar, Schizophrenia [] 2 [] 2 Depression [] 1 [] 1 TOTAL: 3 Comments about ORT in relation to this patient: 3 ORT score, low risk Opioid Risk Category: Low risk 0-3 Moderate risk 4-7 High risk >=8 Physical Exam: Most Recent Vitals: 01/26/19 0957 BP: 129/85 Pulse: 74 SpO2: 100% PainSc: 4 Constitutional AxOx3, NAD, well developed, well groomed, sitting comfortably in chair. Psychiatric Affect is congruent with mood. Goal directed thought process. Good eye contact. No pain behaviors, communicates clearly and answers questions appropriately. Eyes No scleral icterus, pupils midline/symmetric, EOM full, conjunctiva clear. ENT moist mucous membranes; tongue protrudes midline. Hearing grossly intact. Lungs Clear to auscultation bilaterally Cardiovascular Reg RR without murmur, Skin no rash, asymmetric hair loss, or shiny skin. Musckuloskeletal Inspection of spine reveals good posture, without scoliosis or kyphosis. Gait is normal. Toe and heel steps without difficulty. Trunk flexion to 60 degrees doescause back pain. Trunk extension to 10 degrees doescause back pain. Facet loading maneuvers does not cause back pain Tenderness to palpation detected over right piriformis muscle. Straight leg raise on the right.positive at 60 degrees and left negative RENETTA negative bilaterally. SI Provocation: (distraction, compression): negative bilaterally Full ROM neck, upper and lower extremities demonstrated. No effusion. Neuro Sensoruy: Light Touch discrimination in extremities shows decreased sensation in the followingL5/S1 on the right Motor: Segment Muscle Action Right Left C5 Biceps Elbow flexion 5/5 5/5 C6 Extensor carpi radialis Wrist extension 5/5 5/5 C7 Triceps Elbow extension 5/5 5/5 C8, T1 Hand intrinsics Grasp 5/5 5/5 L2 Iliopsoas Hip flexion 5/5 5/5 L3 Quadriceps Knee extension 5/5 5/5 L4 Tibialis anterior Dorsiflexion 5/5 5/5 L5 Extensor hallucis Great toe extension 5/5 5/5 S1 Gastrocnemius Plantar flexion 5/5 5/5 Reflexes: Segment Tendon Right Left C5 Biceps 2+ 2+ C6 Brachioradialis 2+ 2+ C7 Triceps 2+ 2+ L3-4 Patella 2+ 2+ S1 Gastrocnemius absent 2+ Upper Elliott Negative Negative Lower Babinski absent absent Patient has a normal dermatomal exam from C1-C8 and L1-S1 bilateral. Patient has normal strength, reflexes, and tone in all extremities without any signs of radiculopathy or myelopathy. Imaging & Other Studies: MRI Lumbar 01/06/2019 (in [facility]) Assessment: Ms. Sims is a 28 y.o. year-old female who presents to the pain clinic for evaluation of chronic low back pain s/p two laminectomy/decompression surgeries. She is having low back pain (R side mostly) with radiation to her RLE. On exam, she has no notable motor deficits. She has diminished sensation on the lateral aspect of her lower leg and little or no sensation to light touch or pin prick on the lateral aspect of her rightfoot. She has an absent S1 (gastrocnemius) reflex on the right as well. We discussed how an epidural steroid injection can be useful in relieving radicular symptoms. I explained that there are different routes that can be used for such an injection. Given her history of laminectomy I said it's likely that the doctor doing the procedure will use a caudal approach but that it would be up to them. Ms. Sims is troubled that she is having these issues at her age. But, she very much wishes to do something to regain her function. We discussed risks, benefits and alternatives to a LESI procedure. She says she will consult with spine surgery if this procedure is not successful. We also discussed how a round of physical therapy might be useful if the procedure is successful to help her regain strength and conditioning and to assist her with posture and ergonomics. I provided her with a copy of the Chelsie, TREAT YOUR OWN BACK book and we agreed to discuss PT again when we fol low up two weeks after her procedure. Ms. Sims was given an opportunity to ask any further questions and had none at this time. Recommendations: Interventions: ?? Schedule LESI (caudal?) TBD by provider doing procedure ?? Provided brochure on epidural steroid injections Medications: ?? No new medications at this time Rehabilitation: ?? None at this time ?? Will consider a round of Chelsie therapy following procedure Psychological: ?? None at this time Follow up: ?? F/u two weeks after LESI procedure Thank you Dr. Ospina for allowing my participation in Ms. Magda Sims's care. NISA MahajanC Physician [employer] [facility] [address] [phone] / [facility] documented in this encounter Plan of Treatment Not on filedocumented as of this encounter Visit Diagnoses Diagnosis Post laminectomy syndrome Postlaminectomy syndrome, unspecified re gion documented in this encounter Care Teams Car Salter Relationship Specialty Start Date End Date Keena Domínguez APRN PCP - General Family Medicine 10/19/17 03/03/19 documented as of this encounter
--- OUTSIDE RECORDS SUMMARY | 2022-08-28 15:49 | XMS_ITS | Encounter Summary ---
:1990 Author Organization [facility] Address [facility] [place] [address] Care Team Providers Name Role Phone Taz Billings DO, David Primary Care Provider Encounter Details Date Type Department Care Team Description 07/20/2014 Hospital [place] [facility] [place] Babcock [place] [facility] [place] [address] [facility] Missy Vega MD [facility] [place] [address] [place] [address] Social History Tobacco Use Types Packs/Day Years Used Date Never Smoker Smokeless Tobacco: Never Used Alcohol Use Standard Drinks/Week Comments Yes 1.7 (1 standard drink = 0.6 oz pure alco hol) Sex Assigned at Date Recorded Not on file documented as of this encounter Last Filed Vital Signs Vital Sign Reading Time Taken Comments Blood Pressure 128/76 07/20/2014 5:19 PM EDT Pulse 88 07/20/2014 5:19 PM EDT Temperature 36.5 ??C (97.7 ??F) 07/20/2014 4:25 PM EDT Respiratory Rate 20 07/20/2014 5:19 PM EDT Oxygen Saturation 96% 07/20/2014 5:19 PM EDT Inhaled Oxygen Concentration - - Weight - - Height - - Body Mass Index - - documented in this encounter Discharge Instructions Discharge InstructionsWilcox, Echo L, RN - 07/20/2014 5:30 PM EDT UPPER GI ENDOSCOPY WHAT TO EXPECT AFTER THE PROCEDURE After the test you may feel a little more gassy or bloated than usual, this is normal. ACTIVITY Because of the sedation that you received Your judgement and reaction time are affected ?? Go home and rest quietly for the remainder of the day. You may resume your normal activities tomorrow. ?? Change from one position to the next slowly. You may lose your balance unexpectedly Be careful on stairs, as you may be unsteady on your feet. FOR THE NEXT 24 HRS ?? DO NOT DRIVE OR OPERATE ANY MACHINERY ?? DO NOT DRINK ALCOHOLIC BEVERAGES ?? DO NOT SIGN LEGAL DOCUMENTS ?? If you are a smoker: DO NOT SMOKE WHILE YOU ARE ALONE Diet ?? Start by eating small portions of foods that ordinarily will not upset your stomach. Be gentle with what you choose to start with. ?? Drink plenty of fluids ( unless otherwise told not to) Medications You may have a mild sore throat. Ice chips, popsicles, over the counter throat lozenges or spray may help numb your throat. This procedure should not cause a fever. IV SITE-- slight redness or tenderness is normal, you can use warm compresses if you get concerned.If the tenderness +/or redness increases or foul drainage and a red streak occurs, please contact your PCP immediately. WHEN SHOULD YOU CALL FOR HELP? Call 911 anytime you think that you need emergency care. For example, call if: You passed out (lost consciousness). You cough up blood. You vomit blood or what looks like coffee grounds. You pass maroon or very bloody stools. Call your healthcare provider or seek immediate medical attention if: You have trouble swallowing. You have belly pain. Your stools are black or tarlike or have streaks of blood. You are sick to your stomach or cannot keep fluids down. Watch closely for changes in your health, and be sure to contact your doctor IF Your throat still hurts after a day or two You do not get better as expected. Colonoscopy What to expect after the procedure You may feel a little more gassy or bloated than usual. This is normal. You should expect the return of normal bowel function in the 2 to 3 days. Diet ?? Start by eating small portions of foods that ordinarily will not upset your stomach . Avoid gas producing foods for the next few days ?? Be gentle with what you choose to start with ?? Drink plenty of fluids ( unless your doctor has told you not to). IV SITE-- slight redness, or tenderness is normal. You can use warm compresses if you become concerned. If the tenderness +/or redness increases or foul drainage and a red streak occurs, please contact your PCP immediately When shoud you call for help? Call 911 anytime you think you may need emergency care. For example If you pass out ( loss of consciousness) If you pass maroon or bloody stools If you have severe belly pain Call your doctor now or seek immediate medical care If your stools are black and tarlike If your stools have streaks of blood, but you did not have a biopsy or any polyps removed If you have belly pain, or your belly is swollen and firm If you vomit If you have a fever If you are very dizzy Watch closely for changes in your health, and be sure to contact your doctor if you have any problems Your doctor will let you know when you will need your next colonoscopy. The results of your test andyour risk for colorectal cancer will help your doctor decide how often you need to be checked. [facility] [phone] 8a-5p Same Day Endo [phone] 7a-8p Otherwise contact [phone] and ask to speak to the knife sharpener stone banker Follow up care is a garcia part of your treatment and safety. Be sure to make and go to all appointments, and call your doctor if you are having problems. Discharge instructions reviewed with patient who expresses understanding documented in this encounter Medications at Time of Discharge Medication Sig Dispensed Refills Start Date End Date alum-mag Take 30 mLs by mouth 0 04/2019 hydroxide-simeth as needed. (MAALOX) 200-200-20 mg/5 mL suspension atenolol (TENORMIN) 25 Take 25 mg by mouth 0 11/04/2017 mg tablet daily. NEXIUM 40 mg capsule TAKE ONE CAPSULE BY 60 each 12 201211/04/2017 MOUTH TWICE DAILY norethindrone-e.estradio Take by mouth daily. 0 11/04/2017 l-iron (LO LOESTRIN FE) 1 mg-10 mcg(24) /10 mcg (2) Tab documented as of this encounter H&P Notes Missy Wright MD - 07/20/2014 4:47 PM EDT Gastroenterology and Hepatology Pre-Procedure History and Physical Exam Procedure: Gastroscopy and Colonoscopy Indication: 23F with history of diarrhea and vomiting. Rule out celiac disease and microscopic colitis. Patient Active Problem List Diagnosis Code ??? Vomiting 787.03 ??? PCOS (polycystic ovarian syndrome) 256.4 ??? Weight gain 783.1 ??? HTN (hypertension)-borderline (144/87) 401.9 ??? Obesity 278.00 ??? Family history of diabetes mellitus (father) V18.0 ??? Acne 706.1 ??? Diarrhea 787.91 EXAM: HEENT: Airway examined, oropharynx clear LUNGS: Clear to auscultation HEART: Regular rate and rhythm, normal S1, S2 ABDOMEN: Normal bowel sounds, soft, non tender, non distended, A/P Proceed with the planned endoscopic procedure. Risks and benefits of the procedure explained to the patient. Consent signed. documented in this encounter Miscellaneous Notes Miscellaneous - Raquel Pelaez - 07/20/2014 9:42 PM EDT OR Attestation - Missy Wright MD - 07/20/2014 5:20 PM EDT Attestation: Case Date: 07/20/2014 As the attending physician, I personally performed the entire procedure. MISSY WRIGHT MD 07/20/2014 Miscellaneous - ProviderRaquel - 07/20/2014 3:55 PM EDT documented in this encounter Plan of Treatment Not on filedocumented as of this encounter Procedures Procedure Name Priority Date/Time Associated Comments Diagnosis SURGICAL PATHOLOGY Routine 07/20/2014 5:21 PM Res ults for this REPORT EDT procedure are i n the results section. SPECIMEN TO PATHOLOGY Routine 07/20/2014 5:21 PM Results for this EDT procedure are i n the results section. SPECIMEN TO PATHOLOGY Routine 07/20/2014 5:21 PM Results for this EDT procedure are i n the results section. SPECIMEN TO PATHOLOGY Routine 07/20/2014 5:21 PM Results for this EDT procedure are i n the results section. COLONOSCOPY, 07/20/2014 4:43 PM Diarrhea DIAGNOSTIC EDT N&V (nausea and vomiting) EGD, UPPER GI 07/20/2014 4:43 PM Diarrhea ENDOSCOPY EDT N&V (nausea and vomiting) COLONOSCOPY Routine 07/20/2014 4:42 PM Results f or this EDT procedure are i n the results section. UPPER GI ENDOSCOPY Routine 07/20/2014 4:42 PM Res ults for this EDT procedure are i n the results section. documented in this encounter Results Surgical Pathology Report (07/20/2014 5:21 PM EDT) Component Value Ref Test Analysis Performed At [facility] Range Method Time Signature Surgical CERNER Pathology ? [facility] Report ? Provider: ?? MISSY WRIGHT ?Pt. Name: ?? MAGDA ALLEN ? Acc #: ?[id number] ?Pt. MRN: ?[id number] ? Col Date: ?? 4 ? /Sex: ?1990,(23 years),Female ? Rec Date: ?? 07/20/2014 ? LOC: ?4T ? SURGICAL PATHOLOGY ? ---Pathologic Diagnosis--- ? Endoscopic biopsies - ? A. Duodenal mucosa within normal limits, including preserved villous ? architecture. ? B. Gastric antral gland mucosa wi th mild chronic nonspecific gastritis. ? Gastric fundic gland mucosa with mild chronic n onspecific superficial ? gastritis. No H. pylori-like microorganism is seen. ? C. Colonic mucosa within normal limits. ? CR-PX ? 07/21/14 ? AAS ? 07/25/14 Verified by: ? Daly Guaman MD ? Pathologist ? (Electronic Si gnature) ? The attending pathologist whose signature appears o n this report has ? reviewed all diagnostic slides and has edited the yaneth ss and/or ? microscopic portion of the report in rendering the fi nal pathologic ? diagnosis. ? ---Microscopic Description--- ? Immunohistochemistry Studies: ? Formalin-fixed, paraffin-embedded tissue sections are studied using the ? polymer system techni que with appropriate positive and negative controls. ? These IHC studies provide the pathologist with adju nctive diagnostic ? information. Antibody specificity has been verified by testing antibodies ? on a series of in-paco se tissues with known immunohistochemical performance ? characteristics. The clinical interpretation of any antibody positive ? staining or its absence is evaluated within the zuleyka xt of clinical ? presentation, morphol ogy, histopathological criteria and other diagnostic ? tests. ? Block ?Antibody ? Result (Posi tive/Negative) ? B1 ? H. pylori ? N egative ? ---Gross Description--- ? A - Labeled/Fixative: Duodenum BX, formalin. ? Quantity/Size: Five, 0.2-0.5 cm. ? Tissue Description: Lin tissues. ? [facility] ? Provider: ?? MISSY WRIGHT ?Pt. Name: ?? DASH RAUSCH, MAGDA Linares ? Acc #: ?[id number] ?Pt. MRN: ?[id number] ? Col Date: ?? 4 ? /Sex: ?1990,(23 years),Female ? Rec Date: ?? 07/20/2014 ? LOC: ?4T ? SURGICAL PATHOLOGY ? Sections/Processing: (T1) ? B - Labeled/Fixative: Stomach BX, formalin. ? Quantity/Size: Five, 0.2-0.6 cm. ? Tissue Description: Lin tissues. ? Sections/Processing: (T1) ? C - Labeled/Fixative: Random colon BX, formalin. ? Quantity/Size: Multiple, 0.2-0.5 cm. ? Tissue Description: Lin tissues. ? Sections/Processing: (T3) ??cjl ? ---Clinical Information--- ? Specimen Submitted: ? A - Duodenum bx ? B - Stomach bx ? C - Random colon bx ? Clinical History: ? Diarrhea, rule out celiac disease and microscopic col itis ? Clinical Diagnosis: ? Not provided Specimen (Source) Anatomical Collection Method Collection Time Re ceived Time Location / / Volume Laterality 07/20/2014 5:21 PM EDT Missy Wright MD PATHOLOGY/CYTOLOGY ORDERABLE S Performing Organization Address City/State/ZIP Code Phon e Number [place], [place] [facility] [address] CERNER MILLENNIUM Specimen to Pathology (surgical or derm) (07/20/2014 5:21 PM EDT) Specimen Anatomical Collection Method Collection Time Receive d Time (Source) Location / / Volume Laterality AP Specimen 07/20/2014 5:21 PM 4 5:21 EDT PM EDT Narrative CERNER MILLENNIUM - 07/20/2014 5:21 PM E DT Specimen requisition ordered. ??Separate Pathology report to follow Missy Wright MD PATHOLOGY/CYTOLOGY ORDERABLE S Performing Organization Address City/State/ZIP [place] [address] CERARMANDO BLOUNTENNIUM Specimen to Pathology (surgical or derm) (07/20/2014 5:21 PM EDT) Specimen Anatomical Collection Method Collection Time Receive d Time (Source) Location / / Volume Laterality AP Specimen 07/20/2014 5:21 PM 4 5:21 EDT PM EDT N[facility]ative [facility] - 07/20/2014 5:21 PM E DT Specimen requisition ordered. ??Separate Pathology report to follow Missy Wright MD PATHOLOGY/CYTOLOGY ORDERABLE S Performing Organization Address City/State/ZIP Code Phon e Number [address] CERARMANDO PARKER Specimen to Pathology (surgical or derm) (07/20/2014 5:21 PM EDT) Specimen Anatomical Collection Method Collection Time Receive d Time (Source) Location / / Volume Laterality AP Specimen 07/20/2014 5:21 PM 4 5:21 EDT PM EDT Narrative [facility] - 07/20/2014 5:21 PM E DT Specimen requisition ordered. ??Separate Pathology report to follow Missy Wright MD PATHOLOGY/CYTOLOGY ORDERABLE S Performing Organization Address City/State/ZIP [place] [address] CERARMANDO BLOUNTENNIUM COLONOSCOPY (07/20/2014 4:42 PM EDT) Component Value Ref Test Analysis Performed At [facility] Range Method Time Signature COLONOSCOPY [facility] Patient Name: Magda Sims ? Procedure Date: 07/20/2014 4:42 PM ? Date of : 1990 ? Age: 23 ? Order #: [id number] ? Procedure: ? Colonoscopy Indications: ? Chronic diarrhea Providers: ? Zhanna Heard, Milagros Becerra, ? Jasvir Leon, Scroll Assembler Referring MD: ?Jesus Mcghee MD Medicines: ? Midazolam 1 mg IV, Fentanyl 25 ? micrograms IV Complications: ? No immediate complications. Procedure: ? Pre-Anesthesia Assessment: ? - Prior to the procedure, a H istory ? and Physical was performed, a nd ? patient medications, allergie s and ? sensitivities were reviewed. The ? patient's tolerance of previo us ? anesthesia was reviewed. ? - The risks and benefits of t he ? procedure and the sedation op tions ? and risks were discussed with the ? patient. All questions were a nswered ? and informed consent was obta ined. ? - Patient identification and proposed ? procedure were verified prior to the ? procedure by the physician madison rodas the ? nurse. The procedure was veri fied in ? the pre-procedure area in the ? procedure room. ? - Pre-procedure physical exam ination ? revealed no contraindications to ? sedation. ? - ASA Grade Assessment: II - A ? patient with mild systemic di sease. ? - After reviewing the risks a nd ? benefits, the patient was hipolito med in ? satisfactory condition to und ergo the ? procedure. ? - The anesthesia plan was to use ? moderate sedation/analgesia ? (conscious sedation). ? The procedure, indications, b enefits, ? risks and alternatives were e xplained ? to the patient. Specifically ? discussed were potential ? complications including, but not ? limited to, bleeding, perfora tion, ? infection, missing a cancer, and ? adverse medication reactions. The ? patient was placed in the lef t ? lateral decubitus position, a nd a ? digital rectal exam was perfo rmed. ? The Colonoscope was inserted in the ? and under direct visualizatio n, ? advanced to. Careful inspecti on was ? made as the colonoscope was ? withdrawn. The patient tolera marci the ? procedure well. The quality o f the ? bowel preparation was good. ? Findings: ? Perianal examination was normal. ? The rectum, sigmoid colon, descending colon, ? transverse colon, ascending colon and cecum appeared ? normal. Random colon biopsies were taken. ? The terminal ileum appeared normal. ? No additional abnormalities were found on ? retroflexion. ? Impression: ?- The rectum, sigmoid colon, ? descending colon, transverse colon, ? ascending colon and cecum are normal. ? - The examined portion of the ileum ? was normal. Recommendation: ?- Await pathology results, ? - Follow up with referring ysician ? Missy Mae Augustintami Missy Malin Frankie, 07/20/2014 5:31 PM This report has been signed electronically. Number of Addenda: 0 Note Initiated On: 07/20/2014 4:42 PM Specimen (Source) Anatomical Collection Method Collection Time Re ceived Time Location / / Volume Laterality 07/20/2014 4:42 PM EDT Jesus Mcghee V, DO GENERAL SURGICAL ORDERABLES Performing Organization Address City/State/ZIP Code Phon e Number [facility] UPPER GI ENDOSCOPY (07/20/2014 4:42 PM EDT) Component Value Ref Test Analysis Performed At [facility] Range Method Time Signature UPPER GI [facility] Endoscopy Patient Name: Magda Sims ? Procedure Date: 07/20/2014 4:42 PM ? Date of : 1990 ? Age: 23 ? Order #: [id number] ? Procedure: ? Upper GI endoscopy Indications: ? Screening procedure, Diarrhea Providers: ? Zhanna Heard, R N, ? Jasvir Leon, Scroll Assembler Referring : ?Jesus Mcghee MD Medicines: ? Midazolam 4 mg IV, Fentanyl 150 ? micrograms IV, Diphenhydramin e 50 mg ? IV Complications: ? No immediate complications. Procedure: ? Pre-Anesthesia Assessment: ? - Prior to the procedure, a H istory ? and Physical was performed, a nd ? patient medications, allergie s and ? sensitivities were reviewed. The ? patient's tolerance of previo us ? anesthesia was reviewed. ? - The risks and benefits of t he ? procedure and the sedation op tions ? and risks were discussed with the ? patient. All questions were a nswered ? and informed consent was obta ined. ? - Patient identification and proposed ? procedure were verified prior to the ? procedure by the physician an d the ? nurse. The procedure was veri fied in ? the pre-procedure area in the ? procedure room. ? - Pre-procedure physical exam ination ? revealed no contraindications to ? sedation. ? - ASA Grade Assessment: II - A ? patient with mild systemic di sease. ? - After reviewing the risks a nd ? benefits, the patient was hipolito med in ? satisfactory condition to und ergo the ? procedure. ? - The anesthesia plan was to use ? moderate sedation/analgesia ? (conscious sedation). ? The procedure, indications, b enefits, ? risks and alternatives were e xplained ? to the patient. Specifically ? discussed were potential ? complications including, but not ? limited to, bleeding, perfora tion, ? infection, missing a cancer, and ? adverse medication reactions. The ? Endoscope was introduced thro ugh the ? and advanced to the. The celsa ent ? tolerated the procedure well. The ? patient tolerated the procedu re well. ? Findings: ? The upper third of the esophagus, middle third of the ? esophagus, lower third of the esophagus and ? gastroesophageal junction were normal. ? The gastric body, gastric antrum, cardia (on ? retroflexion) and gastric fundus (on retroflexion) ? were normal. ? The duodenal bulb, first part of the duodenum, 2nd ? part of the duodenum and 3rd part of the duodenum ? were normal. Biopsies were taken with a cold forceps ? for histology. Biopsied. ? Impression: ?- Normal upper third of esophagus, ? middle third of esophagus, lo wer ? third of esophagus and ? gastroesophageal junction. ? - Normal gastric body, antrum , cardia ? and gastric fundus. ? - Normal duodenal bulb, first part of ? the duodenum, 2nd part of the ? duodenum and 3rd part of the ? duodenum. Biopsied. Recommendation: ?- Await pathology results. ? Colonoscopy ? Missy Wright Missy Malin Frankie, 07/20/2014 5:29 PM This report has been signed electronically. Number of Addenda: 0 Note Initiated On: 07/20/2014 4:42 PM Specimen (Source) Anatomical Collection Method Collection Time Re ceived Time Location / / Volume Laterality 07/20/2014 4:42 PM EDT Jesus Mcghee V, GENERAL SURGICAL ORDERABLES Performing Organization Address City/State/ZIP Code Phon e Number [facility] documented in this encounter Visit Diagnoses Not on filedocumented in this encounter Active and Recently Administered Medications Times are shown in EDT. PRN Medication Order 07/18/2014 07/19/2014 07/20/2014 diphenhydrAMINE (BENADRYL) injection (CANCELED) 0705 (Given - Provider: Zhanna S Davon, RN)1655 (Given - Provider: Zhanna Mays, RN) ONCE PRN, Starting Zita 07/20/14 at 1652, Until Zita 07/20/14 at 1745, Itching, Intra-Operative (Intra-Procedure), Routine fentaNYL 50mcg/mL injection (CANCELED) 1648 (Given - Provider: Zhanna Mays, RN)165 (Given - Provider: Zhanna Mays RN)1653 (Given - Provider: Zhanna Mays RN)171 (Given - Provider: Zhanna Mays RN) ONCE PRN, Starting Zita 07/20/14 at 1648, Until Zita 07/20/14 at 1745, Pain, Intra- Operative (Intra-Procedure), Routine midazolam (PF) (VERSED) 1 mg/mL injection (CANCELED) 1648 (Given - Provider: Zhanna Mays, RN)165 (Given - Provider: Zhanna Mays RN)165 (Given - Provider: Zhanna Mays RN)1657 (Given - Provider: Zhanna Mays RN)1711 (Given - Provider: Zhanna Mays RN) ONCE PRN, Starting Zita 07/20/14 at 1648, Until Zita 07/20/14 at 1745, Sleep, Intra- Operative (Intra-Procedure), Routine documented in this encounter Care Teams Wire Border Assembler Relationship Specialty Start Date End Date Jesus Mcghee DO PCP - General 08/09/13 10/18/17 documented as of this encounter
--- OUTSIDE RECORDS SUMMARY | 2022-08-28 15:49 | XMS_ITS | Encounter Summary ---
:1990 Author Organization [facility] [place] [address] Care Team Providers Name Role Phone Keena Domínguez APRN Primary Care Provider Reason for Visit Reason Onset Date Comments [facility] 11/04/2017 Encounter Details Date Type Department Care Team Description 11/04/2017 Telephone [facility] Work [facility] [address] [place] [address] Social History Tobacco Use Types Packs/Day Years [...] on file documented as of this encounter Miscellaneous Notes Telephone Encounter - Brice Mayo CMA - 11/04/2017 11:00 AM EST [facility] Physical/New Patient Staff Phone Visit Magda Sims is a 27 y.o. female was contacted today for a pre-visit phone call. Concerns the patient would like to address at the physical include: 1.) Lower back pain due to L4,5 Discectomy on 08/26/16 in [facility]. 2.) Chronic pain and numbness in lower right leg. Health Maintenance Preventive Care Influenza (Flu) vaccine Overdue 07/24/2017 Pap smear every 3 yrs Overdue 2010 HIV screen Overdue 2007 Tetanus vaccine Next Due 08/31/2024 Done 08/31/2014 Imm Admin: Tdap Vaccine Patient has more history with this topic... Lipid Screening Next Due 08/09/2018 Done 08/09/2013 Chol, Total Tdap adult Completed Done 08/31/2014 Imm Admin: Tdap Vaccine Other needs: no Patient Active Problem List Diagnosis Code ??? HTN (hypertension)-borderline (144/87) I10 ??? Obesity E66.9 ??? Family history of diabetes mellitus (father) Z83.3 ??? Acne L70.9 ??? Gastroparesis K31.84 Past Medical History: Diagnosis Date ??? Acid reflux ??? Gastroparesis ??? H/O colonoscopy 07/19/2014 ??? [...] 2. Nonstenotic degenerative changes at L5-S1. ??? Lactose intolerance ??? Lumbago with sciatica, right side ??? SVT (supraventricular tachycardia) Past Surgical History: Procedure Laterality Date ??? APPENDECTOMY 04/19/2010 ??? BACK SURGERY 11/15/2013 Back surgery in 2012, and 2016 ??? CYST REMOVAL Left 2010 Cyst removal left wrist. ??? CYST REMOVAL Left Removal of ganglion cyst of left wrist ??? LUMBAR DISC SURGERY 1st. 10/2013. 2nd. 08/2016. L4,5 shaved at [facility]. ??? PRO COLONOSCOPY, DIAGNOSTIC 06/16/2012 COLONOSCOPY, DIAGNOSTIC performed by DANICA REYNA at [facility] ??? PRO COLONOSCOPY, DIAGNOSTIC 07/20/2014 COLONOSCOPY, DIAGNOSTIC performed by Missy David MD at [facility] END[facility]COPY ??? PRO UPPER GI ENDOSCOPY, DIAGNOSTIC 07/20/2014 EGD, UPPER GI ENDOSCOPY performed by Missy David MD at [facility]COPY ??? UPPER GI ENDOSCOPY, EXAM 06/16/2012 UPPER GI ENDOSCOPY performed by DANICA REYNA at [facility]COPY ??? WISDOM TOOTH EXTRACTION Family History Problem Relation Age of Onset [...] Paternal Grandfather ??? Cerebrovascular Accident Maternal Uncle Social History Social History ??? Marital status: Single Spouse name: N/A ??? Number of children: N/A ??? Years of education: N/A Social History Main Topics ??? Smoking status: Never Smoker ??? Smokeless tobacco: Never Used ??? Alcohol use 1.0 oz/week 2 Standard drinks or equivalent per week Comment: 1 drink a week socially ??? Drug use: No ??? Sexual activity: Yes Partners: Male control/ protection: Pill, Other-see comments Comment: Barrier and pill Other Topics Concern ??? 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 She lives with her brother in [place], [place]. Current Outpatient Prescriptions Medication Sig Dispense Refill ??? norgestimate-ethinyl estradiol (SPRINTEC, 28,) 0.25-35 mg-mcg Tablet Take 1 tablet by mouth daily. ??? ibuprofen (ADVIL;MOTRIN) 800 mg Tablet Take 800 mg by mouth every 6 hours as needed for Pain. ??? acetaminophen (TYLENOL) 325 mg Tablet Take 650 mg by mouth 2 times daily. ??? alum-mag hydroxide-simeth (MAALOX) 200-200-20 mg/5 mL suspension Take 30 mLs by mouth as needed. No current facility-administered medications for this visit. Allergies Allergen Reactions ??? Latex Rash ??? Amoxicillin Hives ??? Food Allergy Formula [Zfpoawzru-R-Lhcipwm-Selen-Brom] Eggs Learning needs assessment completed 11/04/17. documented in this encounter Plan of Treatment Not on filedocumented as of this encounter Visit Diagnoses Diagnosis Gastroparesis documented in this encounter Care Teams Dyehouse Worker Relationship Specialty Start Date End Date Keena Domínguez APRN PCP - General Family Medicine 10/19/17 03/03/19 documented as of this encounter
--- OUTSIDE RECORDS SUMMARY | 2022-08-28 15:49 | XMS_ITS | Encounter Summary ---
:1990 Author Organization [facility] [place] [address] Care Team Providers Name Role Phone Milan Enriquez Primary Care Provider Reason for Visit Reason Comments Medication Refill Encounter Details Date Type Department Care Team Description 10/16/2018 Refill Live Well Work Well Primary Keena Madison APRN Care at [facility] [address] [place] [address] [place], [place] [address] [phone] (Wo rk) Social History Tobacco Use Types [...] this encounter Miscellaneous Notes Telephone Encounter - Martina Delacruz MD - 10/17/2018 5:32 AM EST The patient is due for a physical. I would suggest to schedule that within 3 months. documented in this encounter Plan of Treatment Not on filedocumented as of this encounter Visit Diagnoses Not on filedocumented in this encounter Care Teams Pathology Secretary Relationship Specialty Start Date End Date Milan Enriquez PA PCP - General Internal Medicine 05/28/21 [address] [place] [address] documented as of this encounter
--- OUTSIDE RECORDS SUMMARY | 2022-08-28 15:49 | XMS_ITS | Encounter Summary ---
:1990 Author Organization [facility] [place] [address] Care Team Providers Name Role Phone Unavailable Primary Care Provider Unavailable Reason for Visit Reason Onset Date Comments Medication Refill 06/09/2019 Encounter Details Date Type Department Care Team Description 06/09/2019 Refill Live Well Work Well Keena Domínguez, Anisa stment disorder with Primary Care at [facility] [address] [place] [address] ENDOCRINOLOGY [phone] [place], [place] [address] (Wo rk) Social History Tobacco Use Types [...] this encounter Miscellaneous Notes Telephone Encounter - Karmen Castaneda RN - 06/09/2019 5:24 PM EDT OV for anxiety 12/20/18 Ov for adjustment disorder 12/27/18 She had a prescription for Zoloft 25 mg take 2 tabs but insurance will no longer cover 2 tabs. They will cover 1 50mg tab NO PCP but the previous prescription did have 1 refill left. documented in this encounter Plan of Treatment Not on filedocumented as of this encounter Visit Diagnoses Diagnosis Adjustment disorder with anxiety documented in this encounter
--- OUTSIDE RECORDS SUMMARY | 2022-08-28 15:49 | XMS_ITS | Encounter Summary ---
:1990 Author Organization [facility] [address] Care Team Providers Name Role Phone Milan Enriquez Primary Care Provider Reason for Referral Diagnostic Test (Routine) - New Request Specialty Diagnoses / Procedures Referred By Contact Refer red To Contact Radiology Diagnoses Syrinx of spinal cord Jose Dale APRN [facility] Rad Mri Procedures MRI Total Spine wo Contrast (Generic) [facility] DR Mclaughlin [facility] [place] [address] [place] [address] Referral ID Status Reason Start Expiration Visits Visits Date Date Requested Authorized [id number] New Request Specialty 12/04/2021 06/03/2023 3 3 Service Requested Diagnostic Test (Routine) - Pending Review Specialty Diagnoses / Procedures Referred By Contact Refer red To Contact Radiology Diagnoses Syrinx of spinal cord Jose Dale APRN [facility] Rad Mri Procedures MRI Brain wo Contrast [facility] [place] [address] [place] [address] Referral ID Status Reason Start Expiration Visits Visits Date Date Requested Authorized [id number] Pending Specialty 12/04/2021 06/03/2023 1 1 Review Service Requested Encounter Details Date Type Department Care Team Description 12/04/2021 Office Visit Neurosurgery [place] [facility] [place] Dale, Syrinx of spinal cord [facility] [place] [address] CENTER [phone] NEUROSURGERY [place], [place] [address] Social History Tobacco Use Types Packs/Day Years [...] Sign Reading Time Taken Comments Blood Pressure 128/86 12/04/2021 1:49 PM EST Pulse 100 12/04/2021 1:49 PM EST Temperature - - Respiratory Rate - - Oxygen Saturation - - Inhaled Oxygen Concentration - - Weight 97.1 kg (214 lb) 12/04/2021 1:49 PM EST Height 162.6 cm (5' 4) 12/04/2021 1:49 PM EST Body Mass Index 36.73 12/04/2021 1:49 PM EST documented in this encounter Progress Notes Jose Dale, TRAINING INSTRUCTOR - 12/04/2021 2:00 PM EST Images from the original note were not included. Section of Neurosurgery Initial Consultation Note 12/04/2021 Milan Enriquez PA [address] [place] [address] RE: Magda Sims : [address] Enriquez: Thank you for referring your patient Magda Sims to the Neurosurgery Clinic at [facility] for evaluation of syrinyx. As you know, Ms. Sims is a pleasant 31 y.o. female who was found to have syrinyx on workup for low back pain with right leg radicular symptoms. Ms. Sims presents to the clinic today for evaluation of newly found syrinyx. She states that it was found during an evaluation for re-development of right lower extremity aching numbness. She hashad a L4/L5 discectomy x2 in 2012 and 2015 at [facility] by Dr. Ospina. She denies any previous spinal trauma. She does state that this right leg symptomatology is worse than her previous episodes but unfortunately the images that were sent to us were only of her thoracic spine. For her pain she is utilizing flexeril, tylenol and ibuprofen. Discectomy x2 L4/L5 2012, [address] [facility] [address] Ospina [facility] did lumbar spine MRI PAST MEDICAL HISTORY: Past Medical History: Diagnosis Date ??? Acid [...] 25-resting heart rate is 90's no palp PAST SURGICAL HISTORY: Past Surgical History: Procedure Laterality Date ??? APPENDECTOMY 04/19/2010 ??? BACK SURGERY 11/15/2013 Back surgery in 2012, and 2015 ??? CYST REMOVAL Left 2011 Cyst removal left wrist. ??? CYST REMOVAL Left Removal of ganglion cyst of left wrist ??? LUMBAR DISC SURGERY 1st. 10/2013. 2nd. 08/2016. L4,5 shaved at [facility]. ??? PRO COLONOSCOPY, DIAGNOSTIC 06/16/2012 COLONOSCOPY, DIAGNOSTIC performed by DANICA REYNA at [facility]COPY ??? PRO COLONOSCOPY, DIAGNOSTIC 07/20/2014 COLONOSCOPY, DIAGNOSTIC performed by Missy David MD at [facility] ENDOSCOPY ??? PRO UPPER GI ENDOSCOPY, DIAGNOSTIC 07/20/2014 EGD, UPPER GI ENDOSCOPY performed by Missy David MD at [facility] ??? UPPER GI ENDOSCOPY, EXAM 06/16/2012 UPPER GI ENDOSCOPY performed by DANICA REYNA at [facility] ??? WISDOM TOOTH EXTRACTION SOCIAL HISTORY: Social History Tobacco Use ??? Smoking status: Never Smoker ??? Smokeless tobacco: Never Used Substance Use Topics ??? Alcohol use: Yes Alcohol/week: 1.7 standard drinks Types: 2 Standard drinks or equivalent per week Comment: 1 drink a week socially ??? Drug use: No FAMILY HISTORY: Family History Problem Relation Age of Onset [...] ??? Heart Disease Paternal Grandmother ??? Alcohol Use Disorder Paternal Grandfather ??? Liver Disease Paternal Grandfather ??? Cerebrovascular Accident Maternal Uncle CURRENT MEDICATIONS: ??? cyclobenzaprine (Flexeril) 5 mg Tablet ??? sertraline (ZOLOFT) 50 mg Tablet ??? multivitamin (THERAGRAN) Tablet ??? MONO-LINYAH 0.25-35 mg-mcg Tablet ??? ibuprofen (ADVIL;MOTRIN) 800 mg Tablet ??? acetaminophen (TYLENOL) 325 mg Tablet ??? sertraline (ZOLOFT) 25 mg Tablet ALLERGIES: Allergies Allergen Reactions ??? Latex Rash ??? Amoxicillin Hives ??? Food Allergy Formula [Mgqrkgzxu-Y-Nluqecg-Selen-Brom] Eggs REVIEW OF SYSTEMS: pertinent ROS in HPI PHYSICAL EXAMINATION: Blood pressure 128/86, pulse 100, height 162.6 cm (5' 4), weight 97.1 kg (214 lb). Awake, alert, and in no acute distress. Speech: Appropriate and fluent; answers questions appropriately. Motor: Normal muscle bulk and tone. STRENGTH R L REFLEXES R L Shoulder abduction 5 5 Biceps 2 2 Elbow flexion 5 5 Brachiorad. 2 2 Elbow extension 5 5 Triceps 2 2 Wrist dorsiflexion 5 5 Finger abduction 5 5 Patella 2 2 Drum Puller 5 5 Ankle 2 2 Hip flexion 5 5 Knee flexion 5 5 PATHOLOGIC Knee extension 5 5 REFLEXES R L Ankle dorsiflexion 5 5 Elliott's Absent Absent Ankle plantarflexion 5 5 Extensor hallucis 5 5 Clonus None None Sensation: Grossly intact to light touch in all four extremities. Gait: Independent and stable. RADIOGRAPHIC STUDIES: MRI Thoracic spine 04/25/21 IMPRESSION: 1. Findings of syringomyelia extending from T9 through T12. 2. No evidence of mass or abnormal enhancement IMPRESSION AND PLAN: Ms. Sims is a 31 y.o. female presenting with new syrinyx. I reviewed the imaging studies with her. I discussed that this appears most like a dilated central canal and we should continue to monitor to determine stability at this time. I would like to get her previous lumbar imaging to determine if it is visible on those as well. Based on my findings I suggest the following course of action: 1. Cervical and Brain MRI ordered to evaluate other causes of the dilated central canal 2. Follow up in 1 year with a MRI neural axis. It was my pleasure to have seen and examined Ms. Sims. In our visit today, we discussed the patient's current condition, the natural course history without treatment and various interventional options. I will be sure to keep you updated after Ms. Sims returns here for further follow-up. Thank you again for your referral. Please don't hesitate to contact me if you have any further questions. Sincerely, Jose Dale APRN Nurse Practitioner [facility] Department of Neurosurgery [address] [place] [address] CC: BALDEMAR Sims CC: Milan Enriquez PA [facility] [address] [place] [id number] This message is confidential, intended only for the named recipient(s) and may contain information that is privileged or exempt from disclosure under applicable law. If you are not the intended recipient(s), you are notified that the dissemination, distribution or copying of this information is strictly prohibited. If you received this message in error, please notify the sender then delete this message. 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
--- OUTSIDE RECORDS SUMMARY | 2022-08-28 15:49 | XMS_ITS | Encounter Summary ---
:1990 [place] [address] Care Team Providers Name Role Phone Taz Billings DO, David Primary Care Provider Encounter Details Date Type Department Care Team Description 07/26/2014 [facility] [place] Delayed gastric [facility] DEPT OF emptying ([facility] GASTROENTEROLOGY Dx) [place] [address] Social History Tobacco Use Types Packs/Day Years Used Date Never Smoker Smokeless Tobacco: Never Used Alcohol Use Standard Drinks/Week Comments Yes 1.7 (1 standard drink = 0.6 oz pure alco hol) Sex Assigned at Date Recorded Not on file documented as of this encounter Plan of Treatment Not on filedocumented as of this encounter Visit Diagnoses Diagnosis Delayed gastric emptying - Primary Dyspepsia and other specified disorders of function of stomach documented in this encounter Care Teams Able Bodied Tankerman Relationship Specialty Start Date End Date Jesus Mcghee DO PCP - General 08/09/13 10/18/17 documented as of this encounter
--- OUTSIDE RECORDS SUMMARY | 2022-08-28 15:49 | XMS_ITS | Encounter Summary ---
:1990 Author Organization [facility] [place] [address] Care Team Providers Name Role Phone Taz Billings DO, David Primary Care Provider Reason for Visit Reason Comments Other Encounter Details Date Type Department Care Team Description 07/04/2014 Telephone [place] [facility] [place]ina Mo RN Other [facility] maria c [place] [address] Social History Tobacco Use Types Packs/Day Years Used Date Never Smoker Smokeless Tobacco: Never Used Alcohol Use Standard Drinks/Week Comments Yes 1.7 (1 standard drink = 0.6 oz pure alco hol) Sex Assigned at Date Recorded Not on file documented as of this encounter Miscellaneous Notes Telephone Encounter - Robina Magana RN - 07/04/2014 10:07 AM EDT Willard from the lab calls, states the stool sample is QNS to run all ordered tests. Inquires which toperform, fecal elastase or fecal fat? Willard advises some of the sample was already submitted for a different test. Advised lab run Fecal Fat. documented in this encounter Plan of Treatment Not on filedocumented as of this encounter Visit Diagnoses Not on filedocumented in this encounter Care Teams Tube Cutter Relationship Specialty Start Date End Date Jesus Mcghee DO PCP - General 08/09/13 10/18/17 documented as of this encounter
--- OUTSIDE RECORDS SUMMARY | 2022-08-28 15:49 | XMS_ITS | Encounter Summary ---
:1990 Author Organization [facility] [place] [address] Care Team Providers Name Role Phone Keena Domínguez APRN Primary Care Provider Reason for Visit Reason Onset Date Comments Medication Refill 05/06/2018 Encounter Details Date Type Department Care Team Description 05/06/2018 Refill Live Well Work [facility] Primary Care at [facility] [address] [place] [address] Social History Tobacco Use Types Packs/Day Years [...] this encounter Miscellaneous Notes Telephone Encounter - Amarilis Sanders RN - 05/06/2018 8:48 AM EDT Left message with Magda, ? Labs ordered 11/19/18 done elsewhere? If not, to go to 3L at [facility] to have the labs drawn. Telephone Encounter - Cher Deluca - 05/06/2018 7:35 AM EDT Magda called for a script for her norgestimate-ethinyl estradiol (SPRINTEC, 28,) 0.25-35 mg-mcg Tablet. She has refills at the [facility], she wants the script sent to the pharmacy. documented in this encounter Plan of Treatment Not on filedocumented as of this encounter Visit Diagnoses Not on filedocumented in this encounter Care Teams Notcher Relationship Specialty Start Date End Date Keena Domínguez APRN PCP - General Family Medicine 10/19/17 03/03/19 documented as of this encounter
--- OUTSIDE RECORDS SUMMARY | 2022-08-28 15:49 | XMS_ITS | Encounter Summary ---
:1990 Author Organization [facility] [place] [address] Care Team Providers Name Role Phone Milan Enriquez Primary Care Provider Encounter Details Date Type Department Care Team Description 03/04/2022 Ancillary Procedure Radiology Library at Katt Enriquez [facility] BAL[place] [facility] [address] [address] [place], [place] [phone] (Wo rk) Social History Tobacco Use Types [...] Associated Diagnosis Comme nts FILM LIBRARY Routine 03/04/2022 12:00 AM Results for this STORAGE ONLY MR EDT procedure ar e in SPINE the results section. documented in this encounter Results Film Library- Storage Only MR Spine (03/04/2022 12:00 AM EDT) Specimen (Source) Anatomical Location Collection Method / Collectio n Time Received Time / Laterality Volume Narrative S[facility] RAD - 03/21/2022 1:56 PM EDT This exam is auto-finalizing. It's purpo se is for storage only. Milan MCDERMOTT IMMarcelino FILM LIBRARY ORDERABLES Performing Organization Address City/State/ZIP Code Phon e Number RAD [place], [place] documented in this encounter Visit Diagnoses Not on filedocumented in this encounter Care Teams Rotary Pump Operator Relationship Specialty Start Date End Date Milan Enriquez PA PCP - General Internal Medicine 05/28/21 [address] [place] [address] documented as of this encounter
--- OUTSIDE RECORDS SUMMARY | 2022-08-28 15:49 | XMS_ITS | Encounter Summary ---
:1990 Author Organization [facility] [place] [address] Care Team Providers Name Role Phone Keena Domínguez APRN Primary Care Provider Reason for Visit Reason Onset Date Comments Triage 08/17/2018 Encounter Details Date Type Department Care Team Description 08/17/2018 Telephone Live [facility] Work [facility] Primary Jennifer Miranda RN Triage Care at [facility] GENERAL INTERNAL MEDICINE [address] [place] [address] [place] [address] [phone] (Wo rk) Social History Tobacco Use Types [...] this encounter Miscellaneous Notes Telephone Encounter - Jennifer Mcnair RN - 08/17/2018 1:48 PM EDT Tarah said that for the last two days she has had chest pressure , chills, been cold and clammy. Shethinks that she also has a fever but she does not have a thermometer to check it. She says that her symptoms are getting more severe. She wanted to know if she should drive the 45 minutes here or go tot ED close to home. She said that her chest pressure is across her entire chest. I told her to be seen at the closest ED as I felt that it was too dangerous for her to drive here. She said that she would go to the closest ED to be evaluated. documented in this encounter Plan of Treatment Not on filedocumented as of this encounter Visit Diagnoses Not on filedocumented in this encounter Care Teams Sticker Operator Relationship Specialty Start Date End Date Keena Domínguez APRN PCP - General Family Medicine 10/19/17 03/03/19 documented as of this encounter
--- OUTSIDE RECORDS SUMMARY | 2022-08-28 15:49 | XMS_ITS | Encounter Summary ---
:1990 Author Organization [facility] [place] [address] Care Team Providers Name Role Phone Taz Billings DO, David Primary Care Provider Encounter Details Date Type Department Care Team Description 08/26/2016 Ancillary Procedure Radiology Library at Katt Enriquez [facility] [place] [facility] [address] [address] [place], [place] [phone] (Wo rk) Social History Tobacco Use Types [...] Associated Diagnosis Comme nts FILM LIBRARY Routine 08/26/2016 12:00 AM Results for this STORAGE ONLY DX EDT procedure ar e in SPINE the results section. documented in this encounter Results Film Library- Storage Only DX Spine (08/26/2016 12:00 AM EDT) Specimen (Source) Anatomical Location Collection Method / Collectio n Time Received Time / Laterality Volume Narrative RAD - 12/05/2021 12:20 PM EST This exam is auto-finalizing. It's purpo se is for storage only. Milan MCDERMOTT Marcelino FILM LIBRARY ORDERABLES Performing Organization Address City/State/ZIP Code Phon e Number RAD DH [place], [place] documented in this encounter Visit Diagnoses Not on filedocumented in this encounter Care Teams Carbonizer Tester Relationship Specialty Start Date End Date Jesus Mcghee DO PCP - General 08/09/13 10/18/17 documented as of this encounter
--- OUTSIDE RECORDS SUMMARY | 2022-08-28 15:49 | XMS_ITS | Encounter Summary ---
:1990 [place] [address] Care Team Providers Name Role Phone Keena Domínguez APRN Primary Care Provider Encounter Details Date Type Department Care Team Description 02/03/2019 Ancillary Procedure Pain Management at [facility] Jesus Arguello V, DO Pain [facility] [address] PAIN CLINIC [phone] [place] [phone] (Wo rk) Social History Tobacco Use Types [...] Associated Diagnosis Comme nts FILM LIBRARY Routine 05/16/2019 4:54 PM Pain Results f or this STORAGE ONLY PAIN EDT procedure are in CLINIC C ARM the results section. documented in this encounter Results Film Library- Storage Only pain Clinic C-Arm (05/16/2019 4:54 PM EDT) Specimen (Source) Anatomical Location Collection Method / Collectio n Time Received Time / Laterality Volume Narrative KERRY - 05/16/2019 4:54 PM EDT See PACS for result report. Jesus Arguello V, IMG FILM LIBRARY ORDERABLES Performing Organization Address City/State/ZIP Code Phon e Number [place], [place] documented in this encounter Visit Diagnoses Diagnosis Pain Generalized pain documented in this encounter Care Teams Parker Relationship Specialty Start Date End Date Keena Domínguez APRN PCP - General Family Medicine 10/19/17 03/03/19 documented as of this encounter
--- OUTSIDE RECORDS SUMMARY | 2022-08-28 15:49 | XMS_ITS | Encounter Summary ---
:1990 Author Organization [facility] [place] [address] Care Team Providers Name Role Phone Keena Domínguez APRN Primary Care Provider Reason for Referral Routine Exam (Routine) - Specialty Diagnoses / Procedures Referred By Contact Refer red To Contact Diagnoses Intervertebral disc disorder with radiculopathy of lumbar region Curtis Bermeo MD Procedures Epidural steroid injection - [facility] [place] [address] Referral ID Status Reason Start Date Expiration Visits Visits Date Requested Authorized [id number] Specialty 02/03/2019 02/03/2020 1 1 Service Requested Reason for Visit Reason Comments Back Pain Surgical (Routine) - Closed Specialty Diagnoses / Procedures Referred By Contact Refer red To Contact Pain Management Diagnoses Postlaminectomy syndrome, not elsewhere classified Eric Hidalgo PA Dent, David V, DO Procedures PRO INJECTION DX/THER SBST INTRLMNR LMBR/SAC W/IMG GDN PROCEDURE 1 [facility] [address] [place] [address] [place] [address] Phone: Fax: Referral ID Status Reason Start Date Expiration Date Visits Requ ested Visits Authorized [id number] Closed 02/03/2019 02/03/2020 1 1 Encounter Details Date Type Department Care Team Description 02/03/2019 Procedure visit Pain Management at [facility] Inte rvertebral disc [facility] disorder with [facility] radiculop athy lumbar [address] [facility] [address] collado (Primary Dx) [place] [address] [place] [phone] [facility] Social History Tobacco Use Types Packs/Day Years [...] Sign Reading Time Taken Comments Blood Pressure 122/77 02/03/2019 9:07 AM EDT Pulse 86 02/03/2019 9:07 AM EDT Temperature - - Respiratory Rate 16 02/03/2019 9:07 AM EDT Oxygen Saturation 93% 02/03/2019 9:07 AM EDT Inhaled Oxygen Concentration - - Weight 92.1 kg (203 lb) 02/03/2019 8:45 AM EDT Height 162.6 cm (5' 4) 02/03/2019 8:45 AM EDT Body Mass Index 34.84 02/03/2019 8:45 AM EDT documented in this encounter Patient Instructions Patient InstructionsKendra Kumari RN - 02/03/2019 9:00 AM EDT Pain Management Center Discharge Instructions: You were seen by Dr. Rolf Rubio DO and Curtis Bermeo MD who performed caudal Epidural Steroid Injection. It is normal that the injection site will be sore for up to 48 hours. You may also experience mild stiffness in the joint near the injection site. [x] You may resume your normal activities: tomorrow. You may shower today. DO NOT tub bathe, use whirlpools, hot tubs or pool therapy for 2 days. Remove Band-Aid(s) later today/tomorrow. Do not drive until tomorrow. Use caution walking/climbing stairs as you may be unsteady on your feet. You may use your usual medications, including pain medications, as directed, unless otherwise instructed. You may use an ice pack as needed for the first 24 hours, on for 20 minutes then off for 20 minutes.Do not apply heat today. Attempt to empty your bladder 4-6 hours after your procedure. You received the following medications: Depo-Medrol 80 mg, Lidocaine and Omnipaque (contrast dye). During regular business hours, please phone the Pain Management Center at with any questions or if the following or other troubling symptoms develop: 1) Prolonged dizziness or weakness (more than 1 day). 2) Localized swelling, redness or drainage at the injection site(s). 3) Temperature of 101 degrees that lasts for more than 4 hours. After 5 PM or on weekends, call and ask for Pain Clinic provider on-call. If you are unable to reach the Pain Management Center and have a complication, please call your Primary Care Provider or proceed to your local emergency department. Kendra Kumari RN documented in this encounter Progress Notes Curtis Bermeo MD - 02/03/2019 9:00 AM EDT PREPROCEDURE HISTORY AND PHYSICAL Date of Visit: February 03, 2019 Chief Complaint: Low back pain HPI: Subjective Magda Sims is a 28 y.o. female who presents today for caudal epidural steroid injection. The history is obtained from the patient, and I have reviewed medical records provided by the referring physician and located in the electronic medical record to fill in gaps in the patient's recollection of events, treatments and outcomes. LOCATION: across the lower back. PAIN LEVEL AT REST 4/10 PAST MEDICAL HISTORY: Past Medical History: Diagnosis [...] 1st. 10/2013. 2nd. 08/2016. L4,5 shaved at [facility]. ??? PRO COLONOSCOPY, DIAGNOSTIC 06/16/2012 COLONOSCOPY, DIAGNOSTIC performed by DANICA REYNA at [facility] ENDOSCOPY ??? PRO COLONOSCOPY, DIAGNOSTIC 07/20/2014 COLONOSCOPY, DIAGNOSTIC performed by Missy David MD at [facility] ENDOSCOPY ??? PRO UPPER GI ENDOSCOPY, DIAGNOSTIC 07/20/2014 EGD, UPPER GI ENDOSCOPY performed by Missy David MD at [facility] ENDOSCOPY ??? UPPER GI ENDOSCOPY, EXAM 06/16/2012 UPPER GI ENDOSCOPY performed by DANICA REYNA at [facility] ENDOSCOPY ??? WISDOM TOOTH EXTRACTION ALLERGIES: Latex; Amoxicillin; and Food allergy formula [mciivyfse-t-zprnefz-selen-brom] MEDICATIONS: Medications 02/03/19 0841 Medication Sig Taking? multivitamin (THERAGRAN) Tablet Take 1 tablet by mouth daily. MONO-LINYAH 0.25-35 mg-mcg Tablet TAKE ONE TABLET BY MOUTH EVERY DAY sertraline (ZOLOFT) 25 mg Tablet Take 2 tablets by mouth daily. ibuprofen (ADVIL;MOTRIN) 800 mg Tablet Take 800 mg by mouth every 6 hours as needed for Pain. acetaminophen (TYLENOL) 325 mg Tablet Take 650 mg by mouth 2 times daily. FAMILY HISTORY: Family History Problem Relation Age [...] Paternal Grandfather ??? Cerebrovascular Accident Maternal Uncle SOCIAL HISTORY: Social History Socioeconomic History ??? Marital status: [...] 3W. She lives with her brother in [place], [place]. ROS: Patient denies recent fevers, chills, infections, wounds, hospitalizations, ED visits or antibioticsuse PHYSICAL EXAM: There were no vitals taken for this visit. CV: RRR Pulm: CTA B Skin: No concerning infection, erythema or warmth near the procedure site RADIOLOGIC DATA: MRI reviewed ASSESSMENT: 1. Intervertebral disc disorder with radiculopathy of lumbar region Assessment Magda Sims is a 28 y.o. female who presents today for the above procedure. Risks and benefits were discussed with the patient and all questions answered. There are no contraindications to proceed. PLAN: Proceed with procedure as planned. Curtis Bermeo MD Pain Fellow [facility] Kendra Kumari RN - 02/03/2019 9:00 AM EDT Pre-Procedure Screening Questions: 1. Status: No 2. Patient states they have a class c truck driver to transport after procedure? Yes 3. Patient taking antibiotics at present? No 4. NPO per Pain Management Center protocol? No 5. Patient diabetic: No Patient routinely taking anticoagulants ? No Patient Vital Signs documented in Doc Flowsheets associated with this encounter. Patient Discharge Instructions were reviewed with patient and copy provided to patient. documented in this encounter Procedure Notes Curtis Bermeo MD - 02/03/2019 9:00 AM EDTAssociated Order(s): EPIDURAL STEROID INJECTION Procedure(s): EPIDURAL STEROID INJECTION Pre-Procedure Diagnose(s): Intervertebral disc disorder with radiculopathy of lumbar region PROCEDURE NOTE CAUDAL EPIDURAL STERIOID INJECTION Date of Service: 02/03/2019 Patient: Magda Sims Provider: Curtis Bermeo MD Magda Sims has been referred to the Pain Management Center for caudal epidural steroid injection. COMMENTS:Imaging reviewed Ms. Sims was interviewed and the medical record was reviewed. There were no medical, pharmacologic, radiographic or other structural contraindications to attempting fluoroscopically guided epidural steroid injection. Risks and expected side effects as well as potential benefit of the procedure were reviewed with Ms. Sims, and her voiced concerns were addressed. The printed consent form was signed and witnessed. Standard time-out procedure was performed. Ms. Sims was placed in the prone position on the fluoroscopy table and automated blood pressure cuff and pulse oximeter applied. The skin entry point for entering/approaching the epidural space by a caudal approach through the sacral hiatus ed identified with surgical skin marking. Following thorough chlorhexidine preparation x 2 of the skin and draping and 1% lidocaine infiltration of the skinentry point and subcutaneous tissues, a 17 gauge Touhy needle was placed under fluoroscopic guidanceinto the epidural space. Needle tip placement and depth were aided and confirmed by fluoroscopy in the lateral and AP position. There was no paresthesia or return of blood or CSF through the needle. 1 cc of Omnipaque 240 was injected with clear epidural spread confirmed with fluoroscopy. An Arrow 19G radio-opaque epidural catheter was advanced into the epidural space to the L5-S1 and 2 cc of Omnipaque 240 was injected with clear epidural spread. 80 mg of Depomedrol was injected. There was no unusual discomfort expressed by Ms. Sims. The needle and catheter were then flushed with 2 cc of 1% Lidocaine and they were removed without difficulty. (48 cc of Omnipaque was wasted) Ms. Sims's vital signs were stable throughout the procedure and were as recorded in the docflowsheet by the nursing staff. If given, dosages of intravenous drugs for anxiolysis and analgesia weredocumented in JAN. Follow up plans and appointments were discussed with Ms. Sims. Post procedure instruction was given as documented in nursing documentation and having met discharge criteria, she was discharged from the Pain Management Center. COMMENTS: No apparent complications. This procedure can be completed up to 3 times per 12 months. Repeat prn I was the attending physician supervising the resident in the above care and I was present with the resident for the entire procedure. ROLF RUBIO DO, MPH [facility] Nurse Practitioner of Anesthesiology/[facility] [employer] at [facility] Leadership Coach, Pain Medicine Fellowship ABPM&R - Subspecialty board certification in Pain Medicine CC: Keena Domínguez APRN [facility] [place] [address] Keena Domínguez APRN [facility] [place] [address] documented in this encounter Plan of Treatment Not on filedocumented as of this encounter Procedures Procedure Name Priority Date/Time Associated Diagnosis Comme nts EPIDURAL STEROID Routine 02/03/2019 9:00 AM Intervertebral dis c Results for this INJECTION EDT disorder with procedure are in radiculopathy of lumbar the results region section. documented in this encounter Results EPIDURAL STEROID INJECTION (02/03/2019 9:00 AM EDT) Narrative Rolf Rubio V, DO - 02/03/2019 9:00 AM E DT Rolf Rubio V, DO ? 02/04/2019 ??1:45 PM PROCEDURE NOTE CAUDAL EPIDURAL STERIOID INJECTION Date of Service: ??02/03/2019 Patient: ??Magda Sims ?? MRN: ? ?[id number] Provider: ??Curtis Bermeo MD ?? Magda Sims has been referred to the Pain Management Center for caudal epidural steroid injec tion. ?? COMMENTS:Imaging reviewed Ms. Sims was interviewed and the m edical record was reviewed. ??There were no medical, pharm acologic, radiographic or other structural contraindications to at tempting fluoroscopically guided epidural steroid injection. ??Ris ks and expected side effects as well as potential benefit of the procedure were reviewed with Ms. Sims, and her vo iced concerns were addressed. ??The printed consent form wa s signed and witnessed. ?? Standard time-out procedure was performe d. Ms. Sims was placed in the prone p osition on the fluoroscopy table and automated blood pr essure cuff and pulse oximeter applied. ??The skin entry point for entering/approaching the epidural space by a caudal approach through the sacral hiatus ed identified with surgical skin marking . ??Following thorough chlorhexidine preparation x 2 of the ski n and draping and 1% lidocaine infiltration of the skin entry point and subcutaneous tissues, a 17 gauge Touhy needle was david iker under fluoroscopic guidance ??into the epidural space. Needle tip placement and depth were aide d and confirmed by fluoroscopy in the lateral and AP positi on. There was no paresthesia or return of blood or CSF th rough the needle. 1 cc of Omnipaque 240 was injected with clear ep idural spread confirmed with fluoroscopy. An Arrow 19G radio-opa que epidural catheter was advanced into the epidural space to the L5-S1 and 2 cc of Omnipaque 240 was injected with clear ep idural spread. ??80 mg of Depomedrol was ??injected. There was no unusual discomfort expressed by Ms. Sims. ??The needl e and catheter were then flushed with 2 cc of 1% Lidocaine and th ey were removed without difficulty. (48 cc of Omnipaque was wast ed) Ms. Sims's vital signs were stable throughout the procedure and were as recorded in the docflowsheet by the nursing staff. ?? If given, dosages of intravenous drugs f or anxiolysis and analgesia were documented in MAR. Follow up plans and appointments were di scussed with Ms. Sims. ??Post procedure instruction was given as documented in nursing documentation and having met discharge criteria, she was discharged from the Pain Management Center. COMMENTS: ??No apparent complications. ? ?This procedure can be completed up to 3 times per 12 months. Repeat prn I was the attending physician supervisin g the resident in the above care and I was present with the re sident for the entire procedure. ROLF RUBIO DO, MPH Women[facility] Nurse Practitioner of Anesthesiology/[facility] [employer] [facility] at [facility] Leadership Coach, Pain Medicine [facility] ABPM&R - Subspecialty board certificatio n in Pain Medicine CC: Keena Domínguez [facility] [place] [address] Keena Domínguez LEAD WEB DEVELOPER [facility] Occupational Medicine [place] [address] Rolf Billings DO NEUROLOGY ORDERABLES documented in this encounter Visit Diagnoses Diagnosis Intervertebral disc disorder with radicu lopathy of lumbar region - Primary Thoracic or lumbosacral neuritis or radi culitis, unspecified documented in this encounter Care Teams Director Women Relationship Specialty Start Date End Date Keena Domínguez APRN PCP - General Family Medicine 10/19/17 03/03/19 documented as of this encounter
--- OUTSIDE RECORDS SUMMARY | 2022-08-28 15:49 | XMS_ITS | Encounter Summary ---
:1990 Author Organization [facility] [place] [address] Care Team Providers Name Role Phone Milan Enriquez Primary Care Provider Reason for Referral Consultation (Routine) - Authorized Specialty Diagnoses / Procedures Referred By Contact Refer red To Contact Neurosurgery Diagnoses Back pain, unspecified back location, unspecified back pain laterality, unspecified chronicity Milan Enriquez PA [facility] Neurosurgery [address]c [address] [address] Referral ID Status Reason Start Date Expiration Visits Visits Date Requested Authorized [id number] Authorized Consult, 02/03/2022 02/03/2023 6 6 Test & Treat Encounter Details Date Type Department Care Team Description 02/03/2022 Transcribe Orders eDH Incoming Mina Back pain, Referrals BALDEMAR Yates unspecified back [phone], ELL[address] 1 unspecified back [place], [place] pain latera [place]ity, [address] unspecified [phone] chronicity (Work) Social History Tobacco Use Types Packs/Day Years [...] as of this encounter Plan of Treatment Scheduled Referrals Name Type Priority Associated Diagnoses Order S chedule Referral to Spine Outpatient Referral Routine Back pain, Ord ered: Center unspecified back 02/03/2022 location, unspecified back pain laterality, unspecified chronicity documented as of this encounter Visit Diagnoses Diagnosis Back pain, unspecified back location, un specified back pain laterality, unspecified chronicity documented in this encounter Care Teams Pure Culture Operator Relationship Specialty Start Date End Date Milan Enriquez PA PCP - General Internal Medicine 05/28/21 [address] [place] [address] documented as of this encounter
--- OUTSIDE RECORDS SUMMARY | 2022-08-28 15:49 | XMS_ITS | Encounter Summary ---
:1990 Author Organization [facility] [address] Care Team Providers Name Role Phone Taz Billings DO, David Primary Care Provider Encounter Details Date Type Department Care Team Description 07/03/2014 Orders Only [place] [facility] [place] [address] Social History Tobacco Use Types Packs/Day [...] on filedocumented in this encounter Care Teams Piece Maker Relationship Specialty Start Date End Date Jesus Mcghee DO PCP - General 08/09/13 10/18/17 documented as of this encounter
--- OUTSIDE RECORDS SUMMARY | 2022-08-28 15:49 | XMS_ITS | Clinical Summary ---
:1990 Author Organization [facility] [place] [address] Care Team Providers Name Role Phone Milan Enriquez Primary Care Provider Allergies Active Allergy Reactions Severity Noted Date Comments Amoxicillin Hives 06/10/2012 Empliflhi-S-Ynfhutp-Selen-Brom 06/10/2012 Eggs Latex Rash 06/10/2012 Medications Medication Sig Dispensed Refills Start Date End Date Status ibuprofen Take 800 mg by 0 Activ e (ADVIL;MOTRIN) 800 mg mouth every 6 Tablet hours as needed for Pain. acetaminophen (TYLENOL) Take 650 mg by 0 Active 325 mg Tablet mouth 2 times daily. sertraline (ZOLOFT) 25 Take 2 tablets 180 tablet 3 12/27/2018 Active mg Tablet by mouth daily. Additional Information Patient not taking. Reported on 12/04/2021 MONO-LINYAH 0.25-35 mg-mcg TAKE ONE TABLET BY 84 tablet 3 12/24 Active Tablet MOUTH EVERY DAY multivitamin (THERAGRAN) Take 1 tablet by mouth 0 Active Tablet daily. sertraline (ZOLOFT) 50 mg Take 1 tablet by mouth 90 tablet 0 0 06/10/2019 Active TabletIndications: Adjustment daily. disorder with anxiety Additional Information Patient taking differently: 100 mg Oral DAILY, Reported on 12/04/2021 cyclobenzaprine (Flexeril) 5 mg TAKE 1 TABLET BY MOUTH 0 11/13/2021 Active Tablet ONCE DAILY AT BEDTIME NEEDED Active Problems Problem Noted Date Adjustment disorder with anxiety 12/10/2018 Difficulty sleeping 12/10/2018 Lumbosacral radiculopathy at S1 12/10/2018 Previous back surgery 11/20/2017 Annual physical exam 11/20/2017 Health care maintenance 11/19/2017 Gastroparesis 11/04/2017 Overview: Onset: 3-4 years ago. SVT (supraventricular tachycardia) 11/23/2014 Overview: in the past was controlled with atenolol age 24-resting heart rate is 90's no palp Obesity 08/09/2013 Family history of diabetes mellitus (father) 3 Acne 08/09/2013 Resolved Problems Problem Noted Date Resolved Date Diarrhea 07/03/2014 11/04/2017 PCOS (polycystic ovarian syndrome) 08/09/201311/04 Weight gain 08/09/2013 11/04/2017 HTN (hypertension)-borderline (144/87) 08/09/2013 1 01/20/2017 Vomiting 06/10/2012 11/04/2017 Immunizations Name Administration Dates Next Due DT 07/09/2007, 05/14/2004 HPV, 9-Valent 01/12/2008, 09/10/2007, 07/09/2007 Hepatitis B Vaccine, unspecified 04/22/2017 (Deferred: Immun e by formulation titer), 07/09/2007, 05/13/2005, 05/14/2004 Influenza Vaccine PF, Quadrivalent 08/21/2022, 08/30/2018 MMR Vaccine, Live 08/27/1999, 01/20/1991 Meningococcal Conjugate 07/09/2007 Oral Poliovirus Vaccine, Unknown 02/11/1995, 05/19/1991, 06/1990, Formulation 1989 Tdap Vaccine 08/31/2014 Varivax Varicella Vaccine, LIVE 04/22/2017 (Deferred: Immune by titer) Family History Medical History Relation Comments Allergies Brother Asthma Brother Diabetes Father Hyperlipidemia Father Hypertension Father Type 2 Diabetes Father Parkinsonism Maternal Grandfather Breast Cancer Maternal Grandmother Osteoporosis Maternal Grandmother Ovarian Cancer Maternal Grandmother Cerebrovascular Accident Maternal Uncle Anesthesia Reaction Mother Coronary Artery Disease Mother Depression Mother Heart Disease Mother Alcohol Use Disorder Paternal Grandfather Liver Disease Paternal Grandfather Heart Disease Paternal Grandmother Osteoporosis Paternal Grandmother Relation Status Comments Brother Father Maternal Grandfather Maternal Grandmother Maternal Uncle Mother Paternal Grandfather Paternal Grandmother Social History Tobacco Use Types Packs/Day Years [...] Assigned at Date Recorded Not on file Last Filed Vital Signs Vital Sign Reading Time Taken Comments Blood Pressure 128/86 12/04/2021 1:49 PM EST Pulse 100 12/04/2021 1:49 PM EST Temperature 37.1 ??C (98.7 ??F) 12/27/2018 3:10 PM EST Respiratory Rate 16 02/03/2019 9:07 AM EDT Oxygen Saturation 100% 02/15/2019 9:51 AM EDT Inhaled Oxygen Concentration - - Weight 97.1 kg (214 lb) 12/04/2021 1:49 PM EST Height 162.6 cm (5' 4) 12/04/2021 1:49 PM EST Body Mass Index 36.73 12/04/2021 1:49 PM EST Plan of Treatment Health Maintenance Due Date Last Done Comments Covid-19 Vaccine (#1) 1994 HIV screen 2007 Hepatitis C Screening 2007 Lipid Screening 08/09/2018 08/09/2013 PAP Smear 11/19/2020 11/19/2017 Tetanus vaccine 08/31/2024 08/31/2014, 07/09/2007, 05/14/20 04 Tdap adult Completed 08/31/2014 Influenza (Flu) vaccine Completed 08/21/2022, 08/30/2018 Insurance Payer Benefit Plan / Subscriber ID Effective Phone Address T ype Group Dates [facility] [employer] HPI [id number] 2021-Pres [phone] [address] [address] HEALTH EMP [address] [place] [address] HEALTH PLANS [facility] HEALTH [id number] 2022-Prese [address] [place] [address] [place] [id number] 2019-Prese [phone] [address] [facility] [address], [facility] [phone] Care Teams Elementary Reading Specialist Relationship Specialty Start Date End Date Milan Enriquez PA PCP - General Internal Medicine 05/28/21 [address] [place] [address]
--- OUTSIDE RECORDS SUMMARY | 2022-08-28 15:49 | XMS_ITS | Encounter Summary ---
:1990 [place] [address] Care Team Providers Name Role Phone Taz Billings DO, David Primary Care Provider Encounter Details Date Type Department Care Team Description 04/22/2017 Orders Only Occupational Medicine at Laquita Lester APRN [facility] Arlene smith [place] [address] [place] [address] [phone] (Wo rk) Social History Tobacco Use Types [...] Name Priority Date/Time Associated Diagnosis Comme nts HEPATITIS B SURFACE Routine 04/22/2017 1:35 PM Re sults for this ANTIBODY EDT procedure are i n the results section. documented in this encounter Results Hepatitis B Surface Antibody (04/22/2017 1:35 PM EDT) athologist Signature HepB Surface >1000.0 IU/L [facility] Ab Quant [facility] Comment: HepB Surface Ab Quant: Unvaccinated: < 8.5 IU/L Vaccinated: > 11.5 IU/L HepB Surface Ab Positive [facility] Comment: Patient is considered to be immune to HB V infection. Expected Results: Vaccinated: Positive Unvaccinated: Negative Specimen Anatomical Collection Method Collection Time Receive d Time (Source) Location / / Volume Laterality Blood specimen Venous Draw / 04/22/2017 1:35 PM 2016 1:44 (specimen) Unknown EDT PM EDT Resulting Agency Comment Spec In Lab Laquita Lester DUPLICATE MAKER IMMUNOLOGY ORDERABLES Performing Organization Address City/State/[place] [address] documented in this encounter Visit Diagnoses Not on filedocumented in this encounter Care Teams Archivist Military History Relationship Specialty Start Date End Date Jesus Mcghee DO PCP - General 08/09/13 10/18/17 documented as of this encounter
--- OUTSIDE RECORDS SUMMARY | 2022-08-28 15:49 | XMS_ITS | Encounter Summary ---
:1990 Author Organization [facility] [place] [address] Care Team Providers Name Role Phone Taz Billings DO, David Primary Care Provider Encounter Details Date Type Department Care Team Description 01/30/2017 Telephone Gastroenterology at [facility] [place] [address] Social History Tobacco Use Types Packs/Day Years Used Date Never Smoker Smokeless Tobacco: Never Used Alcohol Use Standard Drinks/Week Comments Yes 1.7 (1 standard drink = 0.6 oz pure alco hol) Sex Assigned at Date Recorded Not on file documented as of this encounter Miscellaneous Notes Telephone Encounter - Mary Soriano - 01/30/2017 3:10 PM EST Title: A Multicenter, Randomized, Double-blind, Placebo-controlled study to assess the efficacy of Tradipitant in relieving symptoms of gastroparesis Protocol: [id number] Sponsor: Spring. Magda Sims was called to inquire interest in the above titled study. Patient was not reached, but a message was left stating necessary study information and a request to call back for more details. Call back information was left in the message. Pt will call back if she is interested in potentially participating in this study. documented in this encounter Plan of Treatment Not on filedocumented as of this encounter Visit Diagnoses Not on filedocumented in this encounter Care Teams Tailercpa Relationship Specialty Start Date End Date Jesus Mcghee DO PCP - General 08/09/13 10/18/17 documented as of this encounter
--- OUTSIDE RECORDS SUMMARY | 2022-08-28 15:49 | XMS_ITS | Encounter Summary ---
:1990 Author Organization [facility] [place] [address] Care Team Providers Name Role Phone Sang Keena PHAN Primary Care Provider Reason for Visit Reason Comments Medication Refill Encounter Details Date Type Department Care Team Description 01/10/2019 Refill Live Well Work Well Primary Natalio ray, Martina Suggs MD Care at [facility] [address] [facility] [place] [address] [place] [address] [phone] (Wo rk) Social History Tobacco Use Types [...] this encounter Miscellaneous Notes Telephone Encounter - Zoie Carey CCMA - 01/10/2019 10:05 AM EST Requested Prescriptions Pending Prescriptions Disp Refills ??? MONO-LINYAH 0.25-35 mg-mcg Tablet [Pharmacy Med Name: MONO-LINYAH 0.25-35MG-MCG TABS] 84 tablet 3 Sig: TAKE ONE TABLET BY MOUTH EVERY DAY YADIRA- 12/27/18 documented in this encounter Plan of Treatment Not on filedocumented as of this encounter Visit Diagnoses Not on filedocumented in this encounter Care Teams Bone Char Puller Relationship Specialty Start Date End Date Keena Domínguez APRN PCP - General Family Medicine 10/19/17 03/03/19 documented as of this encounter
--- OUTSIDE RECORDS SUMMARY | 2022-08-28 15:49 | XMS_ITS | Encounter Summary ---
:1990 [place] [address] Care Team Providers Name Role Phone Taz Billings DO, David Primary Care Provider Encounter Details Date Type Department Care Team Description 04/22/2017 Orders Only Occupational Medicine at Laquita Lester APRN [facility] Arlene smith [place] [address] [place], [place] [id number] [phone] (Wo rk) Social History Tobacco Use Types [...] Name Priority Date/Time Associated Diagnosis Comme nts VARICELLA ZOSTER Routine 04/22/2017 1:35 PM Resul ts for this ANTIBODY, IGG EDT procedure are in the results section. documented in this encounter Results Varicella zoster Antibody, IgG (04/22/2017 1:35 PM EDT) P athologist Signature Varicella IgG Pos [facility] Specimen Anatomical Collection Method Collection Time Receive d Time (Source) Location / / Volume Laterality Blood specimen Venous Draw / 04/22/2017 1:35 PM 2016 8:57 (specimen) Unknown EDT AM EDT Resulting Agency Comment Spec In Lab Laquita Lester CREATIVE WRITING TEACHER IMMUNOLOGY ORDERABLES Performing Organization Address City/State/[place] [address] documented in this encounter Visit Diagnoses Not on filedocumented in this encounter Care Teams Airborne Electronics Analyst Relationship Specialty Start Date End Date Jesus Mcghee DO PCP - General 08/09/13 10/18/17 documented as of this encounter
--- OUTSIDE RECORDS SUMMARY | 2022-08-28 15:49 | XMS_ITS | Encounter Summary ---
:1990 Author Organization [facility] [place] [address] Care Team Providers Name Role Phone Milan Enriquez Primary Care Provider Encounter Details Date Type Department Care Team Description 03/12/2022 Telephone Neurosurgery at [facility] Jose Dale APRN [facility] [place] [address] NEUROSURGERY [phone] [place], [place] [address] (Wo rk) Social History Tobacco [...] this encounter Miscellaneous Notes Telephone Encounter - Ketty Adame RN - 03/17/2022 11:45 AM EDT Attempted to call patient again to discuss symptoms. Left VM to call us back to discuss. Closing encounter. Telephone Encounter - Ketty Adame RN - 03/13/2022 10:30 AM EDT Called left VM for patient to call us back to discuss symptoms. Telephone Encounter - Jael Ochoa - 03/12/2022 5:26 PM EDT RN, Received referral for existing patient of Jose indicating worsening low back pain and right foot weakness. Could you please triage and advise field secretary pool on scheduling? Secretaries, once scheduled please link referral. Thank you, Annie documented in this encounter Plan of Treatment Not on filedocumented as of this encounter Visit Diagnoses Not on filedocumented in this encounter Care Teams Exercise Rider Relationship Specialty Start Date End Date Milan Enriquez PA PCP - General Internal Medicine 05/28/21 [address] [place] [address] documented as of this encounter
--- OUTSIDE RECORDS SUMMARY | 2022-08-28 15:49 | XMS_ITS | Encounter Summary ---
:1990 Author Organization [facility] [place] [address] Care Team Providers Name Role Phone Taz Billings DO, David Primary Care Provider Encounter Details Date Type Department Care Team Description 07/20/2014 Surgery Gastroenterology at [facility] Missy Wright, EGD, UPPER GI [facility] Arlene [place] [address] [place] [address] GASTROENTEROLOGY DEPT. [place], [place] [address] Social History Tobacco Use Types [...] documented in this encounter Discharge Instructions Discharge InstructionsEcho Nascimento RN - 07/20/2014 5:30 PM EDT UPPER [...] you need to be checked. [facility] [phone] 8a-5p Same Day Endo [phone] 7a-8p Otherwise contact [phone] and ask to speak to the remelt operator cardiology clinical consultant Follow up care is a garcia part [...] signed. documented in this encounter Miscellaneous Notes Adithyaaneous - Provider Scanning - 07/20/2014 9:42 PM EDT OR Attestation - Missy Wright MD - 07/20/2014 5:20 PM EDT Attestation: Case Date: 07/20/2014 As the attending physician, I personally performed the entire procedure. MISSY WRIGHT MD 07/20/2014 Miscellaneous - Raquel Pelaez - 07/20/2014 3:55 PM EDT documented in [...] Component Value Ref Test Analysis Performed At [facility] Range Method Time Signature Surgical CERNER Pathology ? [facility] Report ? Provider: ?? MISSY WRIGHT ?Pt. Name: ?? DASH RAUSCH, MAGDA Linares ? Acc #: ?[id number] ?Pt. MRN: ?[id number] ? Col Date: ?? 4 ? /Sex: [...] cm. ? Tissue Description: Lin tissues. ? [facility] ? Provider: ?? MISSY WRIGHT ?Pt. Name: ?? MAGDA ALLEN ? Acc #: ?[id number] ?Pt. MRN: ?[id number] ? Col Date: ?? 4 ? /Sex: [...] Organization Address City/State/[place] [address] [facility] Specimen to Pathology (surgical or derm) (07/20/2014 5:21 PM EDT) Specimen Anatomical Collection Method Collection Time Receive d Time (Source) Location / / Volume Laterality AP Specimen 07/20/2014 5:21 PM 4 5:21 EDT PM EDT Narrative CERNER MILLENNIUM - 07/20/2014 5:21 PM E DT Specimen requisition ordered. ??Separate Pathology report to follow Missy Wright MD PATHOLOGY/CYTOLOGY ORDERABLE S Performing Organization Address City/[facility]/ZIP Code Phon e Number [address] CERNER MILLENNIUM Specimen to Pathology [...] MD PATHOLOGY/CYTOLOGY ORDERABLE S Performing Organization Address City/[facility]/ZIP Code Phon e Number [address] CERNER MILLENNIUM Specimen to Pathology [...] MD PATHOLOGY/CYTOLOGY ORDERABLE S Performing Organization Address City/[facility]/[place] [address] CERNER MILLENNIUM COLONOSCOPY (07/20/2014 4:42 PM EDT) Component Value Ref Test Analysis Performed At [facility] Range Method Time Signature COLONOSCOPY [facility] Endoscopy Patient Name: Magda Sims ? Procedure Date: 07/20/2014 4:42 PM ? Date of : 1990 ? Age: 23 ? Order #: [id number] ? Procedure: ? Colonoscopy Indications: ? Chronic diarrhea Providers: ? Zhanna Heard, R N, ? Jasvir Leon, Forest Firefighter Referring : ?Jesus Mcghee MD Medicines: ? Midazolam 1 [...] the ? procedure by the physician madison logan ? nurse. The procedure was verallison sanchez in ? the pre-procedure area in the [...] results, ? - Follow up with referring ph ysician ? Missy MThomas Wright Missy M Frankie, 07/20/2014 5:31 PM This report has [...] Component Value Ref Test Analysis Performed At [facility] Range Method Time Signature UPPER GI [facility] ENDOSCOPY Endoscopy Patient Name: Magda Sims ? Procedure Date: 07/20/2014 4:42 PM ? Date of : 1990 ? Age: 23 ? Order #: [id number] ? Procedure: ? Upper GI endoscopy Indications: ? Screening procedure, Diarrhea Providers: ? Zhanna Heard, Milagros Becerra, ? Jasvir Leon, Forest Firefighter Referring MD: ?Jesus Mcghee MD Medicines: ? Midazolam 4 [...] rodas the ? nurse. The procedure was shae sanchez in ? the pre-procedure area in the [...] Await pathology results. ? Colonoscopy ? Missy MThomas Wright Missy M Frankie, 07/20/2014 5:29 PM This report has been signed electronically. Number of Addenda: 0 Note Initiated On: 07/20/2014 4:42 PM Specimen (Source) Anatomical Collection Method Collection Time Re ceived Time Location / / Volume Laterality 07/20/2014 4:42 PM EDT Jesus Mcghee V, DO GENERAL SURGICAL ORDERABLES Performing Organization Address City/State/ZIP Code Phon e Number [place] documented in this encounter Visit Diagnoses Diagnosis Diarrhea N&V (nausea and vomiting) Nausea with vomiting documented in this encounter Administered Medications Inactive Administered Medications - up to 3 most recent administrations Medication Order MAR Action Action Date Dose Rate Site diphenhydrAMINE (BENADRYL) Given 07/20/2014 4:55 PM EDT 25 mg injection ONCE PRN, Starting on Zita 07/20/14 at 1652, Until Zita 07/20/14 at 1745, Itching, Intra-Operative (Intra-Procedure), Routine Given 07/20/2014 4:52 PM EDT 25 mg fentaNYL 50mcg/mL injection Given 07/20/2014 5:11 PM EDT 25 mcg ONCE PRN, Starting on Zita 07/20/14 at 1648, Until Zita 07/20/14 at 1745, Pain, Intra-Operative (Intra-Procedure), Routine Given 07/20/2014 4:53 PM EDT 50 mcg Given 07/20/2014 4:51 PM EDT 50 mcg midazolam (PF) (VERSED) 1 mg/mL injectio n Given 07/20/2014 5:11 PM EDT 1 mg ONCE PRN, Starting on Zita 07/20/14 at 1648, Until Zita 07/20/14 at 1745, Sleep, Intra-Operative (Intra-Procedure), Routine Given 07/20/2014 4:57 PM EDT 1 mg Given 07/20/2014 4:53 PM EDT 1 mg documented in this encounter Active and Recently Administered Medications Times are shown in EDT. PRN Medication Order 07/18/2014 07/19/2014 07/20/2014 diphenhydrAMINE (BENADRYL) injection (CANCELED) 1651 (Given - Provider: Zhanna Mays RN)165 (Given - Provider: Zhanna Mays RN) ONCE PRN, Starting Zita 07/20/14 at 1652, Until Zita 07/20/14 at 1745, Itching, Intra-Operative (Intra-Procedure), Routine fentaNYL 50mcg/mL injection (CANCELED) 164 (Given - Provider: Zhanna Mays RN)165 (Given - Provider: Zhanna Mays RN)165 (Given - Provider: Zhanna Mays RN)1711 (Given - Provider: Zhanna Mays, RN) ONCE PRN, Starting Zita 07/20/14 at 1648, Until Zita 07/20/14 at 1745, Pain, Intra- Operative (Intra-Procedure), Routine midazolam (PF) (VERSED) 1 mg/mL injection (CANCELED) 1648 (Given - Provider: Zhanna Mays RN)165 (Given - Provider: Zhanna Mays RN)165 (Given - Provider: Zhanna Mays, RN)1657 (Given - Provider: Zhanna Mays, RN)1711 (Given - Provider: Zhanna Mays, RN) ONCE PRN, Starting Zita 07/20/14 at 1648, Until Zita 07/20/14 at 1745, Sleep, Intra- Operative (Intra-Procedure), Routine documented in this encounter Care Teams Massage Operator Relationship Specialty Start Date End Date Jesus Mcghee DO PCP - General 08/09/13 10/18/17 documented as of this encounter
--- OUTSIDE RECORDS SUMMARY | 2022-08-28 15:49 | XMS_ITS | Encounter Summary ---
:1990 Author Organization [place] [address] Care Team Providers Name Role Phone Taz Billings DO, David Primary Care Provider Reason for Visit Reason Onset Date Comments Other 10/01/2017 would like to establ [facility] care Encounter Details Date Type Department Care Team Description 10/01/2017 Telephone [facility] Laquita Engel RN Ot er (would like to Primary Care at [facility]) [address] [place] [address] Social History Tobacco Use Types Packs/Day Years Used Date Never Smoker Smokeless Tobacco: Never Used Alcohol Use Standard Drinks/Week Comments Yes 1.7 (1 standard drink = 0.6 oz pure alco hol) Sex Assigned at Date Recorded Not on file documented as of this encounter Miscellaneous Notes Telephone Encounter - Laquita Engel RN - 10/01/2017 12:59 PM EST Magda calls, she would like to establish care at [facility]. Verified, name, phone #, , address. Explained release of information (ASHA) process, she will expect ASHA via email. Once records received, we will call for appt. If any acute issue between now and then please call. Her insurance becomes active mid September. LAQUITA ENGEL RN documented in this encounter Plan of Treatment Not on filedocumented as of this encounter Visit Diagnoses Not on filedocumented in this encounter Care Teams Composite Laminator Relationship Specialty Start Date End Date Jesus Mcghee DO PCP - General 08/09/13 10/18/17 documented as of this encounter
--- OUTSIDE RECORDS SUMMARY | 2022-08-28 15:49 | XMS_ITS | Encounter Summary ---
:1990 Author Organization [facility] [place] [address] Care Team Providers Name Role Phone Milan Enriquez Primary Care Provider Encounter Details Date Type Department Care Team Description 05/21/2022 Orders Only Occupational Medicine at [place] [address] [place] [address] [phone] Social History Tobacco Use Types Packs/Day Years [...] Name Priority Date/Time Associated Diagnosis Comme nts QUANTIFERON-TB GOLD Routine 05/21/2022 9:47 AM Re sults for this EDT procedure are i n the results section. documented in this encounter Results QuantiFERON-TB Gold (05/21/2022 9:47 AM EDT) Patholo gist Method Time Signature QFT Nil 0.000 IU/mL [facility] QFT TB Ag1-Nil 0.000 IU/mL [facility] QFT TB Ag2-Nil 0.000 IU/mL [facility] QFT 10.000 IU/mL STEVE Mitogen-Nil [facility] Quantiferon TB Negative Negative [facility] Quantiferon TB M. tuberculosis infection NOT likely STEVE Inter A negative specimen should h ave a TB1 Ag minus Nil value and TB2 Ag minus Nil SADAF value of less than 0.35 IU/mL OR a TB1 Ag minus Nil or TB2 Ag minus Nil value [facility] greater than or equal to 0.35 IU/mL AND a TB Ag minus Nil value from the same HOSPITAL tube of less than 25% of the Nil value. A negative spe cimen must also have a LABORATORY mitogen minus Nil value greater than or equal to 0.5 IU/mL. A negative QFT-Plus result d oes not preclude the possibility of M. tuberculosis infection. False negative re sults can occur due to stage of infection (specimen obtained prior to the development of immune response), co- morbid conditions which affect immune function, or other immunological factors . Specimen Anatomical Collection Method Collection Time Receive d Time (Source) Location / / Volume Laterality Blood Venous Draw / 05/21/2022 9:47 AM 05/22/20 7:25 Unknown EDT AM EDT Resulting Agency Comment Spec In Lab Claudine Mckee APRN CHEMISTRY ORDERABLES Performing Organization Address City/State/[place] [address] documented in this encounter Visit Diagnoses Not on filedocumented in this encounter Care Teams Curb Setter Relationship Specialty Start Date End Date Milan Enriquez PA PCP - General Internal Medicine 05/28/21 [address] [place] [address] documented as of this encounter
--- OUTSIDE RECORDS SUMMARY | 2022-08-28 15:49 | XMS_ITS | Encounter Summary ---
:1990 Author Organization [facility] [place] [address] Care Team Providers Name Role Phone Milan Enriquez Primary Care Provider Encounter Details Date Type Department Care Team Description 12/05/2021 Telephone Neurosurgery at [facility] Jose Dale, SYLVESTER [facility] [place] [address] NEUROSURGERY [phone] [place], [place] [address] (Wo rk) Social History Tobacco [...] this encounter Miscellaneous Notes Telephone Encounter - Vandana Johnson - 01/08/2022 4:05 PM EST Letter mailed to patient requesting call back for scheduling. Telephone Encounter - Ирина Reyna - 12/30/2021 2:52 PM EST LM for pt to call back to update MRI ?'s Schedule MRI Brain and C-spine now per Jose 2012 and 2016 imaging uploaded Telephone Encounter - Ирина Reyna - 12/05/2021 12:26 PM EST LM for pt to call back to update MRI ?'s 1) Needs MRI Brain and MRI C-spine scheduled now per Jose 2) Faxed Push Req's to [facility] and [facility] for MRI imaging (Entered Recall for 1 yr f/u for MRI Brain and Total Spine) Telephone Encounter - Ирина Reyna - 12/05/2021 12:25 PM EST MarileebrandonMagda R - 12/04/21 Jose Dale, SYLVESTER Sent: ThuDecember 04, 2021 ??2:28 PM To: [facility] [place] ?? Message Patient needs f/u in 1 year with MRI prior. She also has had MRI's completed at [facility] in/around 2012 and 2015. Can we please get these. MarileesantiagoMagda engel R - 12/04/21 Jose Dale, KITCHEN RUNNER Sent: ThuDecember 04, 2021 ??3:58 PM To: P [facility] [place] ?? Message Can we also please try to get and cervical or lumbar MRIs that were completed at [facility]. THANK YOU! documented in this encounter Plan of Treatment Not on filedocumented as of this encounter Visit Diagnoses Not on filedocumented in this encounter Care Teams It Application Development Manager Relationship Specialty Start Date End Date Milan Enriquez PA PCP - General Internal Medicine 05/28/21 [address] [place] [address] documented as of this encounter
--- OUTSIDE RECORDS SUMMARY | 2022-08-28 15:49 | XMS_ITS | Encounter Summary ---
:1990 Author Organization [facility] [address] Care Team Providers Name Role Phone Taz Billinsg DO, David Primary Care Provider Encounter Details Date Type Department Care Team Description 11/15/2013 Ancillary Procedure Radiology Library at Katt Enriquez [facility] [address] [address] [place], [place] [phone] (Wo rk) Social History Tobacco Use Types [...] Associated Diagnosis Comme nts FILM LIBRARY Routine 11/15/2013 12:00 AM Results for this STORAGE ONLY DX EST procedure ar e in SPINE the results section. documented in this encounter Results Film Library- Storage Only DX Spine (11/15/2013 12:00 AM EST) Specimen (Source) Anatomical Location Collection Method / Collectio n Time Received Time / Laterality Volume Narrative KERRY - 12/05/2021 12:20 PM EST This exam is auto-finalizing. It's purpo se is for storage only. Milan MCDERMOTT Marcelino FILM LIBRARY ORDERABLES Performing Organization Address City/State/ZIP Code Phon e Number [facility] [place] documented in this encounter Visit Diagnoses Not on filedocumented in this encounter Care Teams Government Sales Manager Relationship Specialty Start Date End Date Jesus Mcghee DO PCP - General 08/09/13 10/18/17 documented as of this encounter
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
--- OUTSIDE RECORDS SUMMARY | 2022-08-28 15:49 | XMS_ITS | Encounter Summary ---
:1990 Author Organization [facility] [place] [address] Care Team Providers Name Role Phone Taz Billings DO, David Primary Care Provider Encounter Details Date Type Department Care Team Description 08/17/2013 Telephone Endocrinology at [facility] C Jesus Rodríguez, [facility] [place] [address] [facility] [phone] ENDOCRINOLOGY [place] [phone] (Wo rk) Social History Tobacco Use Types Packs/Day Years Used Date Never Smoker Smokeless Tobacco: Never Used Alcohol Use Standard Drinks/Week Comments Yes 1.7 (1 standard drink = 0.6 oz pure alco hol) Sex Assigned at Date Recorded Not on file documented as of this encounter Miscellaneous Notes Telephone Encounter - Jesus Rodríguez MD - 08/17/2013 9:29 AM EDT Endocrinology Update: Labs returned, only abnormalities were slightly elevated triglycerides and C- peptide, both likely a result of her recent weight gain and not a cause of it, recommended ongoing efforts and caloric restriction and exercise to address weight gain, patient possibly with PCOS though does not meet diagnostic criteria at this point, could consider metformin therapy in the future for weight loss though thereare not strong recommendations for this indication, will get input from the attending first, above communicated to the patient Jesus Rodríguez M.D. Fellow, Endocrinology 08/17/2013 documented in this encounter Plan of Treatment Not on filedocumented as of this encounter Visit Diagnoses Not on filedocumented in this encounter Care Teams Sausage Mixer Relationship Specialty Start Date End Date Jesus Mcghee DO PCP - General 08/09/13 10/18/17 documented as of this encounter
--- OUTSIDE RECORDS SUMMARY | 2022-08-28 15:49 | XMS_ITS | Encounter Summary ---
:1990 Author Organization [facility] [place] [address] Care Team Providers Name Role Phone Keena Domínguez APRN Primary Care Provider Reason for Visit Reason Onset Date Comments Abdominal Pain 11/26/2017 LLQ Encounter Details Date Type Department Care Team Description 11/26/2017 Telephone Live Well Work Well Laquita Engel RN Abd ominal Pain (LLQ) Primary Care at [facility] [address] [place] [address] Social History Tobacco Use Types Packs/Day [...] Telephone Encounter - Laquita Engel RN - 11/30/2017 11:26 AM EST 11/30/17 11:26 AM TC/message left, follow up, call if concerns. LAQUITA ENGEL RN Telephone Encounter - Laquita Engel RN - 11/26/2017 2:11 PM EST Discussed with Keena Domínguez APRN, this may be self resolving, it would be ok to wait and watch. This is communicated to Magda and she is comfortable with this plan, she is driving home now. LAQUITA ENGEL RN Telephone Encounter - Laquita Engel RN - 11/26/2017 11:08 AM EST LLQ pain awoke her out of a sleep at 2am, pain is a dull ache, worse with cough. No urinary symptoms, no vaginal discharge, No concerns of sexual partner change, denies risk of . Does have a productive cough x 1 day, cough makes LLQ pain worse, she tried motrin, ate a bagel, denies nausea/vomiting/diarrhea, last BM last night, documented in this encounter Plan of Treatment Not on filedocumented as of this encounter Visit Diagnoses Not on filedocumented in this encounter Care Teams Aoc Operations Intelligence Officer Relationship Specialty Start Date End Date Keena Domínguez APRN PCP - General Family Medicine 10/19/17 03/03/19 documented as of this encounter
--- OUTSIDE RECORDS SUMMARY | 2022-08-28 15:49 | XMS_ITS | Encounter Summary ---
:1990 [place] [address] Care Team Providers Name Role Phone Taz Billings DO, David Primary Care Provider Encounter Details Date Type Department Care Team Description 07/04/2014 Telephone Gastroenterology at [facility] Ama Keane APRN [facility] [place] [facility] [place] [address] [place], [place] [id number] [phone] (Wo rk) Social History Tobacco Use Types Packs/Day Years Used Date Never Smoker Smokeless Tobacco: Never Used Alcohol Use Standard Drinks/Week Comments Yes 1.7 (1 standard drink = 0.6 oz pure alco hol) Sex Assigned at Date Recorded Not on file documented as of this encounter Miscellaneous Notes Telephone Encounter - Robina Magana RN - 07/04/2014 10:05 AM EDT Error documented in this encounter Plan of Treatment Not on filedocumented as of this encounter Visit Diagnoses Not on filedocumented in this encounter Care Teams Retread Technician Relationship Specialty Start Date End Date Jesus Mcghee DO PCP - General 08/09/13 10/18/17 documented as of this encounter
--- OUTSIDE RECORDS SUMMARY | 2022-08-28 15:49 | XMS_ITS | Encounter Summary ---
:1990 [place] [address] Care Team Providers Name Role Phone Keena Domínguez APRN Primary Care Provider Reason for Visit Reason Onset Date Comments Pre Procedure Call 02/01/2019 Encounter Details Date Type Department Care Team Description 02/01/2019 Telephone Pain Management at [facility], [place] [address] Social History Tobacco Use Types Packs/Day [...] this encounter Miscellaneous Notes Telephone Encounter - Portia Gupta V, [facility] - 02/01/2019 3:07 PM EDT Magda Sims :1990 Message left: I left a message on answering machine Ms. Sims at 3:07 PM regarding her upcoming Neither lumbar epidural steroid injection with Dr. Jesus Arguello, DO. Message included the followin. Patient instructed to arrive at 8;30 (30 minutes prior to procedure start time) on 02/03/2019 (date of procedure) with their stake driver. 2. Following instructions left in the message: - Bring Updated list of medications including dosage and reason for taking. - Call the Pain Clinic Nurse at for: ~Procedure instructions. ~If you are taking antibiotics. ~If you have any signs or symptoms of infection, cold or flu. ~If you have any skin breakdown (rashes, cysts, or abscess.) ~If you are taking anticoagulants / blood thinners (Plavix, Pletal, Lovenox, Coumadin, etc). ~If you had any steroid injections anywhere in your body within the last two weeks? CRYSTAL Yang documented in this encounter Plan of Treatment Not on filedocumented as of this encounter Visit Diagnoses Not on filedocumented in this encounter Care Teams Boom Operator Relationship Specialty Start Date End Date Keena Domínguez APRN PCP - General Family Medicine 10/19/17 03/03/19 documented as of this encounter
--- OUTSIDE RECORDS SUMMARY | 2022-08-28 15:49 | XMS_ITS | Encounter Summary ---
:1990 [place] [address] Care Team Providers Name Role Phone Unavailable Primary Care Provider Unavailable Encounter Details Date Type Department Care Team Description 04/25/2021 Ancillary Procedure Radiology Library at Arlene Arguello DO [facility] [place] [address] [place] [address] [phone] (Wo rk) Social History Tobacco Use Types [...] Associated Diagnosis Comme nts FILM LIBRARY Routine 04/25/2021 12:00 AM Results for this STORAGE ONLY MR EDT procedure ar e in SPINE the results section. documented in this encounter Results Film Library- Storage Only MR Spine (04/25/2021 12:00 AM EDT) Specimen (Source) Anatomical Location Collection Method / Collectio n Time Received Time / Laterality Volume Narrative SABRA PAYNE - 05/16/2021 3:18 PM EDT This exam is auto-finalizing. It's purpo se is for storage only. Jesus Arguello V, IMG FILM LIBRARY ORDERABLES Performing Organization Address City/State/ZIP Code Phon e Number [facility] [place], [place] documented in this encounter Visit Diagnoses Not on filedocumented in this encounter
--- OUTSIDE RECORDS SUMMARY | 2022-08-28 15:49 | XMS_ITS | Encounter Summary ---
:1990 [place] [address] Care Team Providers Name Role Phone Keena Domínguez APRN Primary Care Provider Encounter Details Date Type Department Care Team Description 01/06/2019 Ancillary Procedure Radiology Library at Arlene Arguello DO [facility] [place] [address] [place] [address] [phone] (Wo rk) Social History Tobacco Use Types [...] Associated Diagnosis Comme nts FILM LIBRARY Routine 01/06/2019 12:00 AM Results for this STORAGE ONLY MR EST procedure ar e in SPINE the results section. documented in this encounter Results Film Library- Storage Only MR Spine (01/06/2019 12:00 AM EST) Specimen (Source) Anatomical Location Collection Method / Collectio n Time Received Time / Laterality Volume Narrative KERRY - 02/02/2019 4:23 PM EDT This exam is auto-finalizing. It's purpo se is for storage only. Jesus Arguello V, IMG FILM LIBRARY ORDERABLES Performing Organization Address City/State/ZIP Code Phon e Number [place], [place] documented in this encounter Visit Diagnoses Not on filedocumented in this encounter Care Teams Ceramic Designer Relationship Specialty Start Date End Date Keena Domínguez APRN PCP - General Family Medicine 10/19/17 03/03/19 documented as of this encounter
--- OUTSIDE RECORDS SUMMARY | 2022-08-28 15:49 | XMS_ITS | Encounter Summary ---
:1990 Author Organization [facility] Address [facility] [place] [address] Care Team Providers Name Role Phone Taz Billings DO, David Primary Care Provider Reason for Visit Reason Comments Follow-up Encounter Details Date Type Department Care Team Description 07/03/2014 Follow-Up Gastroenterology at [facility] Olive Xiong Diarrhea; [facility] Arlene smith APRN N&V (nausea and vomiting) [place] [address] [facility] [phone] CENTER GASTROENTEROLOGY DEPT. [place], [place] [address] Social History Tobacco Use Types Packs/Day Years Used Date Never Smoker Smokeless Tobacco: Never Used Alcohol Use Standard Drinks/Week Comments Yes 1.7 (1 standard drink = 0.6 oz pure alco hol) Sex Assigned at Date Recorded Not on file documented as of this encounter Last Filed Vital Signs Vital Sign Reading Time Taken Comments Blood Pressure 121/72 07/03/2014 1:45 PM EDT Pulse 83 07/03/2014 1:45 PM EDT Temperature - - Respiratory Rate - - Oxygen Saturation - - Inhaled Oxygen Concentration - - Weight 95.1 kg (209 lb 9.6 oz) 07/03/2014 1:45 PM EDT Height 161.3 cm (5' 3.5) 07/03/2014 1:45 PM EDT Body Mass Index 36.55 07/03/2014 1:45 PM EDT documented in this encounter Progress Notes Olive Xiong RN - 07/03/2014 2:11 PM EDT I have not seen pt seen 2012. Pt is having loose stools, acid diarrhea. Sx for about one month. No changes at time of onset of sx. Awakes during the night needing to have a bowel movement. Imodium prn, with relief. No blood in stool. No mucus in stools. Stools are oily. Painful to go to the bathroom, skin is raw. Intermittent lower left abdominal pain. Worse at night. Throbbing sensation. Most stools she has hadper day is 5-6, the least 2-3. This is due to diet changes. Mouth sores. Worse after vomiting. Sensitive teeth. Pt having intermittent n/v. ?trigger. Vomitus is food she has eaten hours prior. Associated distention. No reflux, dysphagia. Stopped nexium few weeks ago. Weight stable. No chronic nsaids. Eating soup, rice cakes, bland foods. Small amounts. Not having dairy. Significant amount of gas. Plan: 1. Diarrhea of unclear etiology: stool studies. Obtain labs today. Imodium prn. Colonoscopy. 2. Perineum: keep clean, A/D ointment 3. N/v: upper endoscopy. Mre. Edel as directed. 4. Gif in 4 weeks. documented in this encounter Miscellaneous Notes Addendum Note - Connor Rgean - 07/03/2014 4:47 PM EDT Addended by: CONNOR REGAN on: 07/03/2014 04:47 PM Modules accepted: Orders Addendum Note - Emilia Pyle - 07/03/2014 3:35 PM EDT Addended by: EMILIA PYLE on: 07/03/2014 03:35 PM Modules accepted: Orders documented in this encounter Plan of Treatment Scheduled Orders Name Type Priority Associated Diagnoses Order S chedule UPPER GI ENDOSCOPY Procedures Routine N&V (nausea and vomiti ng) Ordered: 07/03/2014 COLONOSCOPY Procedures Routine Diarrhea Ordered: 2013 documented as of this encounter Procedures Procedure Name Priority Date/Time Associated Comments Diagnosis STOOL CULTURE SCREEN Routine 07/03/2014 4:20 Diarrhea ([facility]/CGP/APD/[place]) PM EDT CAMPYLOBACTER ANTIGEN Routine 07/03/2014 4:20 Diarrhea Res ults for this PM EDT procedure are i n the results section. CRYPTOSPORIDIUM OOCYST Routine 07/03/2014 4:20 Diarrhea Re sults for this ANTIGEN ([facility]/CGP/APD) PM EDT proce dure are in the results section. C. DIFFICILE SCREEN Routine 07/03/2014 4:20 Diarrhea Resul ts for this PM EDT procedure are i n the results section. SHIGA TOXIN ASSAY Routine 07/03/2014 4:20 Diarrhea Results for this PM EDT procedure are i n the results section. GIARDIA/CRYPTOSPORIDIUM Routine 07/03/2014 4:20 Diarrhea ANTIGENS PM EDT ([facility]/CGP/APD/[facility]) FECAL FAT QUANTITATIVE Routine 07/03/2014 4:20 Diarrhea Re sults for this PM EDT procedure are i n the results section. FECAL FAT QUALITATIVE Routine 07/03/2014 4:20 Diarrhea Res ults for this PM EDT procedure are i n the results section. GIARDIA ANTIGEN Routine 07/03/2014 4:20 Diarrhea Results f or this ([facility]/CGP/APD/[facility]) PM EDT procedure are in the results section. STOOL CULTURE Routine 07/03/2014 4:20 Diarrhea Results for this PM EDT procedure are i n the results section. HEMOGRAM Routine 07/03/2014 3:42 Diarrhea Results for this PM EDT N&V (nausea and procedure ar e in vomiting) the results section. DIFFERENTIAL, AUTOMATED Routine 07/03/2014 3:42 Diarrhea Results for this PM EDT N&V (nausea and procedure ar e in vomiting) the results section. TISSUE TRANSGLUTAMINASE, Routine 07/03/2014 3:42 Diarrhe a Results for this IGA PM EDT N&V (nausea and procedure ar e in vomiting) the results section. CBC (WITH DIFF) Routine 07/03/2014 3:42 Diarrhea PM EDT N&V (nausea and vomiting) TSH Routine 07/03/2014 3:42 Diarrhea Results for this PM EDT N&V (nausea and procedure ar e in vomiting) the results section. COMPREHENSIVE METABOLIC Routine 07/03/2014 3:42 Diarrhea Results for this PANEL (NON-FASTING) PM EDT N&V (nausea and proce dure are in vomiting) the results section. documented in this encounter Results Shiga Toxin Detection (07/03/2014 4:20 PM EDT) [facility] Method Time Signature Shiga Toxin CERNER Assay ? Patient Name: MAGDA SIMS ?? Ordered By: DANICA SHAW [facility] ? MR#: [id number] ?LOC: ??4L ? /Sex: ??1990 (23 years), ? Female ? PROCEDURE: Shiga Toxin Assay ?SOURCE: Stool ? COLLECTED: 07/03/2014 16:20 ? STARTED: 07/03/2014 17:05 ? FINAL REPORT ? Final Report ? Verified:07/04/2014 18:43 ? EIA Negative for Shiga Toxin 1 ? EIA Negative for Shiga Toxin 2 ? Specimen Anatomical Collection Method Collection Time Receive d Time (Source) Location / / Volume Laterality Stool specimen 07/03/2014 4:20 PM 014 5:05 (specimen) EDT PM EDT Resulting Agency Comment Spec In Lab Danica Babcock MD MICROBIOLOGY - GENERAL ORDER DORA Performing Organization Address City/State/ZIP Code Ph[place] [address] [facility] Campylobacter Antigen (07/03/2014 4:20 PM EDT) Component Value Ref Test Analysis Performed At [facility] Range Method Time Signature Campylobacter Ag CERNER ? Patient Name: MAGDA SIMS ?? Ordered By: DANICA SHAW [facility] ? MR#: [id number] ?LOC: ??4L ? /Sex: ??1990 (23 years), ? Female ? PROCEDURE: Campylobacter Antigen ?SOURCE: Stool ? COLLECTED: 07/03/2014 16:20 ? STARTED: 07/03/2014 17:05 ? FINAL REPORT ? Final Report ? Verified:07/04/2014 11:20 ? Immunoassay Negative for Campylobacter Antigen ? Specimen Anatomical Collection Method Collection Time Receive d Time (Source) Location / / Volume Laterality Stool specimen 07/03/2014 4:20 PM 014 5:05 (specimen) EDT PM EDT Resulting Agency Comment Spec In Lab Danica Babcock MD MICROBIOLOGY - GENERAL ORDER DORA Performing Organization Address City/State/ZIP Code Phon [place] [address] [place] [facility] Stool culture (07/03/2014 4:20 PM EDT) [facility] Method Time Signature Stool Culture CERNER ? Patient Name: MAGDA SIMS ?? Ordered By: DANICA SHAW ? MR#: [id number] ?LOC: ??4L ? /Sex: ??1990 (23 years), ? Female ? PROCEDURE: Stool Culture ?SOURCE: Stool ? COLLECTED: 07/03/2014 16:20 ? STARTED: 07/03/2014 17:05 ? FINAL REPORT ? Final Report ? Verified:07/06/2014 12:39 ? No enteric pathogens isolated ? PRELIMINARY REPORT ? Preliminary Report ? Verified:07/04/2014 08:45 ? Culture in progress ? .Stool Culture ?Interpretive Results ? This specimen was screened for th e presence of Salmonella, Shigella, E. ? coli 0157, Yersinia, Aeromonas ? and Plesiomonas. ? Specimen Anatomical Collection Method Collection Time Receive d Time (Source) Location / / Volume Laterality Stool specimen 07/03/2014 4:20 PM 014 5:05 (specimen) EDT PM EDT Resulting Agency Comment Spec In Lab Danica Babcock MD MICROBIOLOGY - GENERAL ORDER DORA Performing Organization Address City/State/[place] [address] CERNER [facility] Cryptosporidium Oocyst Antigen (07/03/2014 4:20 PM EDT) Patholo gist Method Time Signature Cryptosporidium Negative Negative CERNER Screen [facility] Specimen Anatomical Collection Method Collection Time Receive d Time (Source) Location / / Volume Laterality Stool specimen 07/03/2014 4:20 PM 014 5:07 (specimen) EDT PM EDT Resulting Agency Comment Spec In Lab Danica Babcock MD MICROBIOLOGY - GENERAL ORDER DORA Performing Organization Address City/[facility]/ZIP Code Phon e Number [address] CERNER MILLENNIUM Giardia antigen (07/03/2014 4:20 PM EDT) Analysis Performed At Patho logist Time Signature Giardia Screen Negative Negative CERNER [facility]NIUM Comment: Examination for other intestina l parasites requires foreign travel history. Specimen Anatomical Collection Method Collection Time Receive d Time (Source) Location / / Volume Laterality Stool specimen 07/03/2014 4:20 PM 2 014 5:07 (specimen) EDT PM EDT Resulting Agency Comment Spec In Lab Danica Babcock MD MICROBIOLOGY - GENERAL ORDER DORA Performing Organization Address City/[facility]/[place] [address] CERNER MILLENNIUM C. Difficile Screen (07/03/2014 4:20 PM EDT) Analysis Performed At Patho logist Time Signature C Diff Screen Negative Negative CERNER MILLENNIUM Specimen Anatomical Collection Method Collection Time Receive d Time (Source) Location / / Volume Laterality Stool specimen 07/03/2014 4:20 PM 014 5:06 (specimen) EDT PM EDT Resulting Agency Comment Spec In Lab Danica Babcock MD MICROBIOLOGY - GENERAL ORDER DORA Performing Organization Address City/State/[place] [address] CERNER MILLENNIUM Fecal Fat Quantitative: Random (one time) (07/03/2014 4:20 PM EDT) P athologist Signature Stool Weight 2 gm CERNER MILLENNIUM Comment: Test Performed by: [facility] [place] [address] Chief Medical Officer: Fred quintanilla III, M.D. Hrs Stool Random hour(s) CERNER MILLENNIUM Comment: More reliable results can be obtained fr om a timed collection. 48 and 72 hour collect ions will give the most reliable results. Per cent Fat >20% in a random collection is sugge stive of a fat malabsorption disorder and shou ld be confirmed with a timed collection. Test Performed by: [facility] [place] [address] Chief Medical Officer: Fred quintanilla III, M.D. Total Fat Stool NA CERNER MILLENN IUM %Fat Stl 16 <20 % fat CERNER MILLENNIUM Comment: Test Performed by: [facility] [place] [address] Chief Medical Officer: Fred quintanilla III, M.D. Specimen Anatomical Collection Method Collection Time Receive d Time (Source) Location / / Volume Laterality Stool specimen 07/03/2014 4:20 PM 014 (specimen) EDT 10:08 AM EDT Resulting Agency Comment Spec In Lab Danica Babcock MD BODY FLUIDS AND STOOLS ORDER DORA Performing Organization Address City/[facility] [place] [address] CERNER MILLENNIUM Fecal Fat Qualitative (07/03/2014 4:20 PM EDT) Patholo gist Method Time Signature Fecal Fat <100 <100 CERNER Qual globules globules MILLENNIUM /HPF Comment: With this procedure, the presence of <10 0 globules per HPF is considered normal. Specimen Anatomical Collection Method Collection Time Receive d Time (Source) Location / / Volume Laterality Stool specimen 07/03/2014 4:20 PM 014 4:54 (specimen) EDT PM EDT Resulting Agency Comment Spec In Lab Danica Babcock MD BODY FLUIDS AND STOOLS ORDER DORA Performing Organization Address City/[facility]/[place] [address] CERNER MILLENNIUM Differential, Automated (07/03/2014 3:42 PM EDT) P athologist Signature Neutrophils % 57.3 34.0 - CERNER 71.0 % MILLENNIUM Neutr Abs (ANC) 4.10 1.50 - CERNER 6.30 MILLENNIUM x10(3)/mcL Lymphocytes % 31.2 19.0 - CERNER 53.0 % MILLENNIUM Lymphocytes Abs 2.2 1.0 - 3.6 CERNER x10(3)/mcL [facility] Monocytes % 8.4 4.0 - 13.0 CERNER % MILLENNIUM Monocyte Abs 0.6 0.2 - 1.0 CERNER x10(3)/mcL MILLENNIUM Eosinophils % 2.9 0.0 - 7.0 CERNER % MILLENNIUM Eosinophils Abs 0.2 0.0 - 0.5 CERNER x10(3)/mcL MILLENNIUM Basophils % 0.1 0.0 - 2.0 CERNER % MILLENNIUM Basophils Abs 0.0 0.0 - 0.2 CERNER x10(3)/mcL MILLENNIUM Immature Gran % 0.10 0.00 - CERNER 0.66 % MILLENNIUM Comment: Immature granulocytes(IG's)percentage an d absolute count will include metamyelocytes, myelocytes, and promyelo cytes. Blood smears from CBCs yielding IG's will be scanned manually for concor dance. If this scan disagrees with the automated IG or if promyelocytes are not ed, a manual differential will be performed. Lucretia Gran Abs 0.01 0.00 - 0.05 x10(3)/mcL CER NER MILLENNIUM Specimen Anatomical Collection Method Collection Time Receive d Time (Source) Location / / Volume Laterality Blood specimen 07/03/2014 3:42 PM 014 3:46 (specimen) EDT PM EDT Resulting Agency Comment Spec In Lab Danica Babcock MD HEMATOLOGY ORDERABLES Performing Organization Address City/[facility]/[place] [address] CERNER MILLENNIUM Hemogram (07/03/2014 3:42 PM EDT) athologist Signature WBC 7.2 4.0 - 10.0 CERNER x10(3)/mcL MILLENNIUM RBC 4.57 3.93 - 5.22 CERNER x10(6)/mcL MILLENNIUM Hemoglobin 13.5 11.2 - 15.7 CERNER gm/dL MILLENNIUM Hematocrit 40.9 34.0 - 45.0 CERNER % MILLENNIUM MCV 89.5 79.0 - 94.0 CERNER fL MILLENNIUM MCH 29.5 26.6 - 32.2 CERNER pg MILLENNIUM MCHC 33.0 32.0 - 36.5 CERNER gm/dL [facility] Platelets 292 145 - 370 CERNER x10(3)/mcL MILLENNIUM RDWSD 40.0 35.0 - 46.0 CERNER fL [facility] RDWCV 12.5 10.9 - 14.4 CERNER % MILLENNIUM MPV 10.6 9.0 - 12.0 CERNER fL [facility] Specimen Anatomical Collection Method Collection Time Receive d Time (Source) Location / / Volume Laterality Blood specimen 07/03/2014 3:42 PM 014 3:46 (specimen) EDT PM EDT Resulting Agency Comment Spec In Lab Danica Babcock MD HEMATOLOGY ORDERABLES Performing Organization Address City/[facility] Phon e Number [address] [facility] TSH (07/03/2014 3:42 PM EDT) athologist Signature TSH 1.44 0.27 - 4.20 CERNER mcIU/mL [facility] Specimen Anatomical Collection Method Collection Time Receive d Time (Source) Location / / Volume Laterality Blood specimen 07/03/2014 3:42 PM 014 3:46 (specimen) EDT PM EDT Resulting Agency Comment Spec In Lab Danica Babcock MD CHEMISTRY ORDERABLES Performing Organization Address City/[facility] Phon e Number [address] [facility] Tissue transglutaminase, IgA (07/03/2014 3:42 PM EDT) P athologist Signature TTG IgA Ab <4.0 <=3.9 u/ml CERNER MILLENNIUM Comment: Result Interpretation: Negative: ?<4 U/mL Weak Positive: ??4-10 U/mL Positive: ?>10 U/mL Specimen Anatomical Collection Method Collection Time Receive d Time (Source) Location / / Volume Laterality Blood specimen 07/03/2014 3:42 PM 014 8:12 (specimen) EDT AM EDT Resulting Agency Comment Spec In Lab Danica Babcock MD IMMUNOLOGY ORDERABLES Performing Organization Address City/State/[place] [address] CERNER MILLENNIUM Comprehensive metabolic panel (non-fasting) (07/03/2014 3:42 PM EDT) athologist Signature Glucose Lvl 90 60 - 199 CERNER mg/dL MILLENNIUM Comment: Diabetes: >=200 mg/dL plus symp toms BUN 14 8 - 18 mg/dL CERNER MILLENNIUM Creatinine 0.89 0.70 - 1.20 mg/dL CERNER MILL ENNIUM Comment: Please note that the pediatric reference intervals supplied above were not validated at [facility]. Results from pediatri c patients should be interpreted in conjunction to the patient's age, height and muscle mass. Sodium 140 135 - 145 mmol/L CERNER TERESITA NIUM Potassium 4.2 3.5 - 5.0 mmol/L CERNER TERESITA NIUM Comment: Please note: ??Patients with WBC >100,00 0 may have falsely elevated Potassium levels. ??For accurate Potassium quantif ication in these patients send serum separator tube (gold top) for subsequent determinations. ??Contact the Clinical Chemistry Laboratory if there are any qu estions. Chloride 106 98 - 107 mmol/L CERNER MILLENN IUM CO2 24 22 - 31 mmol/L CERNER MILLENNI UM Anion Gap 10 5 - 15 mmol/L CERNER MILLENNIU M Calcium 9.1 8.5 - 10.5 mg/dL CERNER TERESITA NIUM Total Protein 7.3 6.4 - 8.3 gm/dL CERNER MIL LENNIUM Albumin 4.3 3.2 - 5.2 gm/dL CERNER MILLENN IUM AST 16 0 - 30 unit/L CERNER MILLENNIU M ALT 10 0 - 30 unit/L CERNER MILLENNIU M Alk Phos 62 40 - 104 unit/L CERNER MILLENN IUM Total Bilirubin 0.5 0.2 - 1.3 mg/dL CERNER M ILLENNIUM Bili, Direct 0.1 0.0 - 0.3 mg/dL CERNER MILL ENNIUM Estimated GFR >60 >=60 CERNER MILLENNIU M Comment: This estimated GFR (eGFR) value was calc ulated using the MDRD equation which has been validated on patients between t he ages of 18 and 70. The MDRD should not be used to assess kidney function in patients < 18 years of age or in patients with extremes of body mass, or in patients with acute kidney failure. This value should be multiplied by 1.2 f or patients. For further information please copy and past e the following links into your internet browser. http://BuzzSpice/DHnkdep http://BuzzSpice/DHMCnkf Specimen Anatomical Collection Method Collection Time Receive d Time (Source) Location / / Volume Laterality Blood specimen 07/03/2014 3:42 PM 014 3:46 (specimen) EDT PM EDT Resulting Agency Comment Spec In Lab Danica Babcock MD CHEMISTRY ORDERABLES Performing Organization Address City/State/[place] [address] SRINATH GARCIAIUM documented in this encounter Visit Diagnoses Diagnosis Diarrhea N&V (nausea and vomiting) Nausea with vomiting documented in this encounter Care Teams Kitchen Helper Relationship Specialty Start Date End Date Jesus Mcghee DO PCP - General 08/09/13 10/18/17 documented as of this encounter
--- OUTSIDE RECORDS SUMMARY | 2022-08-28 15:49 | XMS_ITS | Encounter Summary ---
:1990 Author Organization [facility] [place] [address] Care Team Providers Name Role Phone Tereza Domínguez APRN Primary Care Provider Reason for Visit Reason Comments Follow-up anxiety, only needed hydroxy zine twice, sleeping 4-7 hours Encounter Details Date Type Department Care Team Description 12/27/2018 Office Visit [facility] Tereza Domínguez Adju stmju disorder with anxiety; Primary Care at [facility]os[facility] [address] [facility] [address] [facility] [address] [place] ENDOCRINOLOGY [address] [place] [id number] [phone] Social History Tobacco Use Types Packs/Day Years [...] Sign Reading Time Taken Comments Blood Pressure 115/70 12/27/2018 3:10 PM EST Pulse 83 12/27/2018 3:10 PM EST Temperature 37.1 ??C (98.7 ??F) 12/27/2018 3:10 PM EST Respiratory Rate 12 12/27/2018 3:10 PM EST Oxygen Saturation 99% 12/27/2018 3:10 PM EST Inhaled Oxygen Concentration - - Weight 96.8 kg (213 lb 6.4 oz) 12/27/2018 3:10 PM EST Height 162.4 cm (5' 3.94) 12/27/2018 3:10 PM EST Body Mass Index 36.7 12/27/2018 3:10 PM EST documented in this encounter Patient Instructions Patient InstructionsTereza Domínguez APRN - 12/27/2018 3:00 PM EST See me in January after you and Jesus do a reset documented in this encounter Progress Notes Tereza Domínguez APRN - 12/27/2018 3:00 PM EST Chief Complaint Patient presents with ??? Follow-up anxiety, only needed hydroxyzine twice, sleeping 4-7 hours Subjective Magda Sims is a 28 y.o. female in today for anxiety and her back Tarah has felt no improvement in her back issues She will be considering surgery in the near future with [facility] . They did her first 2 surgeries She has had significant improvement in anxiety Reflects this may be because of therapy she is doing with Dr. 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 PHQ9 Questionnaires Data (Clinic and Pt Entered): last 4 values PHQ-9 QUESTIONNAIRE LAST 4 VALUES (AMB) 11/19/2017 12/10/2018 12/20/2018 Little interest or pleasure (Clinic) - Not at all - Little interest or pleasure (Patient) Several days - Not at all Down, depressed, hopeless (Clinic) - Not at all - Down, depressed, hopeless (Patient) Several days - More than half the days Patient Active Problem List Diagnosis Code ??? Obesity E66.9 ??? Family history of diabetes mellitus (father) Z83.3 ??? Acne L70.9 ??? Gastroparesis K31.84 ??? SVT (supraventricular tachycardia) I47.1 ??? Health care maintenance Z00.00 ??? Previous back surgery Z98.890 ??? Annual physical exam Z00.00 ??? Adjustment disorder with anxiety F43.22 ??? Difficulty sleeping G47.9 ??? Lumbosacral radiculopathy at S1 M54.17 Current Outpatient Medications: ??? hydrOXYzine (ATARAX) 25 mg Tablet, Take 1 tablet by mouth 3 times daily as needed for Itching., Disp: 30 tablet, Rfl: 12 ??? sertraline (ZOLOFT) 25 mg Tablet, Take 1 tablet by mouth daily., Disp: 90 tablet, Rfl: 3 ??? oxazepam (SERAX) 15 mg Capsule, Take 2 capsules by mouth nightly as needed for Sleep or Anxiety., Disp: 30 capsule, Rfl: 0 ??? MONO-LINYAH 0.25-35 mg-mcg Tablet, TAKE ONE TABLET BY MOUTH EVERY DAY, Disp: 84 tablet, Rfl: 0 ??? ibuprofen (ADVIL;MOTRIN) 800 mg Tablet, Take 800 mg by mouth every 6 hours as needed for Pain., Disp: , Rfl: ??? acetaminophen (TYLENOL) 325 mg Tablet, Take 650 mg by mouth 2 times daily., Disp: , Rfl: ??? alum-mag hydroxide-simeth (MAALOX) 200-200-20 mg/5 mL suspension, Take 30 mLs by mouth as needed., Disp: , Rfl: Allergies Allergen Reactions ??? Latex Rash ??? Amoxicillin Hives ??? Food Allergy Formula [Zxgrbntpm-D-Hdwlhbi-Selen-Brom] Eggs ROS: States she is motivated to exercise despite her back pain She is motivated to see her friends and her family she continues to Worry about her brother and her parents and that is the focus of her worry most of the time Objective Most Recent Vitals: 12/27/18 1510 BP: 115/70 Pulse: 83 Resp: 12 Temp: 37.1 ??C (98.7 ??F) SpO2: 99% PainSc: 4 Tarah is upbeat and insightful She is articulate She appears comfortable walking Assessment 1. Back pain we will continue with [facility] 2. General anxiety disorder and history of depression Increase sertraline to 50 mg please Continue with Dr. Telles Please see me in about a month TEREZA DOMÍNGUEZ APRN documented in this encounter Plan of Treatment Not on filedocumented as of this encounter Visit Diagnoses Diagnosis Adjustment disorder with anxiety Lumbosacral radiculopathy at S1 Thoracic or lumbosacral neuritis or radi culitis, unspecified documented in this encounter Care Teams Nutrition [employer] Ambassador Relationship Specialty Start Date End Date Tereza Domínguez APRN PCP - General Family Medicine 10/19/17 03/03/19 documented as of this encounter
--- OUTSIDE RECORDS SUMMARY | 2022-08-28 15:50 | XMS_ITS | Encounter Summary ---
:1990 Author Organization [facility] [place] [address] Care Team Providers Name Role Phone Cyndi Bynum MD Primary Care Provider Encounter Details Date Type Department Care Team Description 06/23/2012 Hospital Encounter Nuclear Medicine at CLINIC, DR DEAL N&V (nausea and [facility]ari [facility] Penn MD [facility] [place] [address] vomiting) [place] [address] Social History Tobacco Use Types Packs/Day Years Used Date Never Smoker Smokeless Tobacco: Never Used Alcohol Use Standard Drinks/Week Comments Yes 1.7 (1 standard drink = 0.6 oz pure alco hol) Sex Assigned at Date Recorded Not on file documented as of this encounter Medications at Time of Discharge Medication Sig Dispensed Refills Start Date End Date norethindrone-e.estradiol Take by mouth daily. 0 11/04/2017 -iron (LO LOESTRIN FE) 1 mg-10 mcg(24) /10 mcg (2) Tab ondansetron (ZOFRAN) 4 mg Take 1 tablet by 20 tablet 0 05/2307/20/2014 tablet mouth every 8 hours as needed for Nausea. documented as of this encounter Plan of Treatment Not on filedocumented as of this encounter Procedures Procedure Name Priority Date/Time Associated Comments Diagnosis NM FUNCTIONAL Routine 06/23/2012 10:01 AM N&V (nausea and Resu lts for this BILIARY SCAN EDT vomiting) procedure are i n the results section. documented in this encounter Results NM functional biliary scan (06/23/2012 10:01 AM EDT) Anatomical Region Laterality Modality Other Specimen (Source) Anatomical Collection Method Collection Time Re ceived Time Location / / Volume Laterality 06/23/2012 10:01 AM EDT Narrative 06/23/2012 10:22 AM EDT Examination FUNCTIONAL BILIARY SCAN Clinical History Nausea and vomiting Comparison None. Technique Technetium-99m mebrofenin was administer ed intravenously in a dose of 4.8 millicuries. ??Immediately thereafter, i mages of the abdomen were obtained in the anterior projection at 1 minute inte rvals for 28 minutes. Sincalide was administered intravenously at a dose of 1.6 ucg. ??Imaging continued in the GIBRALTARIAN projection for 31 m inutes. Findings There is good concentration of activity by the liver. ??Activity is visible in the gallbladder by 8 minutes. During the sincalide infusion, there is good contraction of the gallbladder. ?? Activity removed promptly into the small bowel. Quantitative analysis: ??The gallbladder ejection fraction is 94 % (normal greater than 38 %). Impression Normal gallbladder function. ??No ductal obstruction. Procedure Note Oracio Hdz MD - 06/23/2012 Examination FUNCTIONAL BILIARY SCAN Clinical History Nausea and vomiting Comparison None. Technique Technetium-99m mebrofenin was administer ed intravenously in a dose of 4.8 millicuries. Immediately thereafter, marcin ges of the abdomen were obtained in the anterior projection at 1 minute inte rvals for 28 minutes. Sincalide was administered intravenously at a dose of 1.6 ucg. Imaging continued in the GIBRALT[place]IAN projection for 31 m inutes. Findings There is good concentration of activity by the liver. Activity is visible in the gallbladder by 8 minutes. During the sincalide infusion, there is good contraction of the gallbladder. Activity removed promptly into the small bowel. Quantitative analysis: The gallbladder e jection fraction is 94 % (normal greater than 38 %). Impression Normal gallbladder function. No ductal o bstruction. Dave Babcock MD IMG NM ORDERABLES documented in this encounter Visit Diagnoses Diagnosis N&V (nausea and vomiting) Nausea with vomiting documented in this encounter Administered Medications Inactive Administered Medications - up to 3 most recent administrations Medication Order MAR Action Action Date Dose Rate Site sincalide (KINEVAC) injection 1.6 Given 06/23/2012 9:00 AM EDT 1 .6 mcg mcg 1.6 mcg, Intravenous, ONCE, 1 dose, On Thu06/23/12 at 0900 documented in this encounter Care Teams Nba Player Relationship Specialty Start Date End Date Cyndi Bynum MD PCP - General 06/10/12 08/08/13 [address] [place] [address] documented as of this encounter
--- OUTSIDE RECORDS SUMMARY | 2022-08-28 15:50 | XMS_ITS | Encounter Summary ---
:1990 Author Organization [facility] [place] [address] Care Team Providers Name Role Phone Cyndi Bynum MD Primary Care Provider Reason for Visit Reason Onset Date Comments Medication Refill 09/17/2012 Encounter Details Date Type Department Care Team Description 09/17/2012 Refill Gastroenterology at [facility] Olive Xiong APRN [facility] [place] [address] GASTROENTEROLOGY DEPT. [phone] [place], [place] [address] (Wo rk) Social History Tobacco [...] on filedocumented in this encounter Care Teams Molder Shoulder Pad Relationship Specialty Start Date End Date Cyndi Bynum MD PCP - General 06/10/12 08/08/[address] [place] [id number] documented as of this encounter
--- OUTSIDE RECORDS SUMMARY | 2022-08-28 15:50 | XMS_ITS | Encounter Summary ---
:1990 Author Organization [facility] [place] [address] Care Team Providers Name Role Phone Cyndi Bynum MD Primary Care Provider Encounter Details Date Type Department Care Team Description 10/12/2012 Follow-Up Gastroenterology at [facility] Olive Xiong, Rib pain (Primary Dx) [facility] [place] [address] [facility] [phone] CENTER GASTROENTEROLOGY DEPT. [place], [place] [address] Social History Tobacco Use Types Packs/Day Years Used Date Never Smoker Smokeless Tobacco: Never Used Alcohol Use Standard Drinks/Week Comments Yes 1.7 (1 standard drink = 0.6 oz pure alco hol) Sex Assigned at Date Recorded Not on file documented as of this encounter Progress Notes Olive Xiong RN - 10/12/2012 3:21 PM EST For a long period of time pt sx of vomiting and diarrhea, were controlled with taking Prilosec 40mg bid. Then her sx of reflux, vomiting and diarrhea occurred again, and her ppi was changed to [id number] bid, this seemed to help for a short period of time, but sx have returned. Today pt underwent agastric emptying scan which revealed a delay at 4 hours, with 32% remaining. Pt has had a normal abdominal u/s, hida, sbft, CT of abdomen/pelvis, egd, colo. The only change at the time of the onset of her sx, which was in November 2011, was a change in control. Pt has not found much relief with the use of desipramine 25mg qhs. Weight stable. Today pt reports pain on left lower rib cage. Exam: tender on lower left rib cage, no lumps. Plan: 1. Gastric delay. No risk factors. ?role of control/hormones on motility. Gastroparesis diet. Change ppi. Will call insurance to determine which ppi they will cover. D/c desipramine. Edel prn for nausea. Chest xray. documented in this encounter Plan of Treatment Not on filedocumented as of this encounter Results XR chest routine PA & lateral (10/12/2012 3:51 PM EST) Anatomical Region Laterality Modality Chest N/A Radiographic Imaging Specimen (Source) Anatomical Collection Method Collection Time Re ceived Time Location / / Volume Laterality 10/12/2012 3:51 PM EST Narrative 10/12/2012 5:11 PM EST Examination CHEST ROUTINE PA+LAT Clinical History tender in left lower rib cage, ?break ?i nflammation Comparison None Technique PA and lateral chest. ?? Findings Lungs are clear. ??No pleural effusion. ??No pneumothorax. ??No displaced rib fracture. ??Normal size of the heart and mediastinum. Impression No acute pathology identified on chest x -ray. Procedure Note Belkis Rapp MD - 2011 Examination CHEST ROUTINE PA+LAT Clinical History tender in left lower rib cage, ?break ?i nflammation Comparison None Technique PA and lateral chest. Findings Lungs are clear. No pleural effusion. No pneumothorax. No displaced rib fracture. Normal size of the heart and m ediastinum. Impression No acute pathology identified on chest x -ray. Dave Babcock MD IMG DX ORDERABLES documented in this encounter Visit Diagnoses Diagnosis Rib pain - Primary Chest pain, unspecified Rib pain Chest pain, unspecified documented in this encounter Care Teams Sample Selector Relationship Specialty Start Date End Date Cyndi Bynum MD PCP - General 06/10/12 08/08/[address] [place] [address] [place] [address] documented as of this encounter
--- OUTSIDE RECORDS SUMMARY | 2022-08-28 15:50 | XMS_ITS | Encounter Summary ---
:1990 Author Organization [facility] Address [facility] [place] [address] Care Team Providers Name Role Phone Cyndi Bynum MD Primary Care Provider Reason for Visit Reason Onset Date Comments Other 09/16/2012 increase desipramine Encounter Details Date Type Department Care Team Description 09/16/2012 Telephone Gastroenterology at [facility] Olive Xiong, Elba (increase [facility] Arlene smith APRN desipramine) [place] [address] [facility] [phone] CENTER GASTROENTEROLOGY DEPT. [place], [place] [address] Social History Tobacco Use Types Packs/Day Years Used Date Never Smoker Smokeless Tobacco: Never Used Alcohol Use Standard Drinks/Week Comments Yes 1.7 (1 standard drink = 0.6 oz pure alco hol) Sex Assigned at Date Recorded Not on file documented as of this encounter Miscellaneous Notes Telephone Encounter - Latonia Lama RN - 09/16/2012 2:36 PM EDT Per Olive Xiong ROLLER SHOP UTILITY WORKER: Increase desipramine to 25mg at hs - Call to [facility] Obtain CT of abd and pelvis, gastric empty scan Mail fodmap: re gas. PPI - check what insurance covers and call in as above. Failed Prilosec BID Pt agrees and will call in 2 weeks with an update. LATONIA LAMA RN 09/14/12 12:49 PM Signed All testing complete in June with normal results. Normal gallbladder. Pain: Increase in ULQ of abd, below breast and tender to touch, despite desipramine 10 at hs since May. Nausea and Vomiting caused by foods: dairy, fat, greasey and fried, citrus fuit. Severe heartburn and gas 3 weeks despite omeprazole 40 BID since May and Tum. Avoids am and noon meals as so miserable, eats snacks at dinner; tolerates veg soup, granola, pretzels, gatorade, waTER, kashi Weight loss of > 50 lbs this year - No stool studies done She has not seen the Gerd diet material. PLAN; Pt. Will go on-line and read about gerd and the gerd diet, She will not skip meals. Will consult Saul Xiong NP 06-10-12 Impression: 1. N/v and diarrhea: ?obstructive process. ?inflammatory process. ?role of control (gallbladder disease). Upper and lower endoscopy. Abdominal u/s, ?hepatomegaly. Obtain cbc, cmp, tsh, crp. Zofran 4mg q8hrs prn. Clear liquids. Imodium prn. F/u with pt once results received. documented in this encounter Plan of Treatment Not on filedocumented as of this encounter Visit Diagnoses Not on filedocumented in this encounter Care Teams Sanitation Truck Driver Relationship Specialty Start Date End Date Cyndi Bynum MD PCP - General 06/10/12 08/08/13 [address] [place] [address] documented as of this encounter
--- OUTSIDE RECORDS SUMMARY | 2022-08-28 15:50 | XMS_ITS | Encounter Summary ---
:1990 Author Organization [facility] Address [facility] [place] [address] Care Team Providers Name Role Phone Cyndi Bynum MD Primary Care Provider Reason for Visit Reason Onset Date Comments Other 09/14/2012 testing done, pain p ersists Encounter Details Date Type Department Care Team Description 09/14/2012 Telephone Gastroenterology at [facility] Elba Lama (testing done, [facility] Arlene Lincoln RN pain persists) [place] [address] Social History Tobacco Use Types Packs/Day Years Used Date Never Smoker Smokeless Tobacco: Never Used Alcohol Use Standard Drinks/Week Comments Yes 1.7 (1 standard drink = 0.6 oz pure alco hol) Sex Assigned at Date Recorded Not on file documented as of this encounter Miscellaneous Notes Telephone Encounter - Latonia Lama RN - 09/14/2012 12:49 PM EDT All testing complete in June with normal results. Normal gallbladder. Pain: Increase in ULQ of abd, below breast and tender to touch, despite desipramine 10 at hs since May. Nausea and Vomiting caused by foods: dairy, fat, greasey and fried, citrus fuit. Severe heartburn and gas 3 weeks despite omeprazole 40 BID since May and Tums. Avoids am and noon meals as so [...] skip meals. Will consult Saul Xiong NP documented in this encounter Plan of Treatment Not on filedocumented as of this encounter Visit Diagnoses Not on filedocumented in this encounter Care Teams Merchandising Specialist Relationship Specialty Start Date End Date Cyndi Bynum MD PCP - General 06/10/12 08/08/13 [address] [place] [address] documented as of this encounter
--- OUTSIDE RECORDS SUMMARY | 2022-08-28 15:50 | XMS_ITS | Encounter Summary ---
:1990 Author Organization [facility] Address [facility] [place] [address] Care Team Providers Name Role Phone Cyndi Bynum MD Primary Care Provider Reason for Visit Reason Onset Date Comments Medication Refill 10/13/2012 Encounter Details Date Type Department Care Team Description 10/13/2012 Refill Gastroenterology at [facility] Olive Xiong, GERD (gastroesophageal [facility] D rive LINK WIRE FABRIC MACHINE OPERATOR reflux disease) [place] [address] [facility] (Primary Dx) [phone] DR GASTROENTEROLOGY DEPT. [place], [place] [address] Social History Tobacco Use Types Packs/Day Years Used Date Never Smoker Smokeless Tobacco: Never Used Alcohol Use Standard Drinks/Week Comments Yes 1.7 (1 standard drink = 0.6 oz pure alco hol) Sex Assigned at Date Recorded Not on file documented as of this encounter Plan of Treatment Not on filedocumented as of this encounter Visit Diagnoses Diagnosis GERD (gastroesophageal reflux disease) - Primary Esophageal reflux documented in this encounter Care Teams Auto Glass Worker Relationship Specialty Start Date End Date Cyndi Bynum MD PCP - General 06/10/12 08/08/13 [address] [place] [address] documented as of this encounter
--- OUTSIDE RECORDS SUMMARY | 2022-08-28 15:50 | XMS_ITS | Encounter Summary ---
:1990 Author Organization [facility] Address [facility] [address] Care Team Providers Name Role Phone Cyndi Bynum MD Primary Care Provider Reason for Visit Reason Onset Date Comments Other 10/11/2012 make appt tomorrow 4 p Encounter Details Date Type Department Care Team Description 10/11/2012 Telephone Gastroenterology at [facility] Olive Xiong, Elba (make appt [facility] Arlene smith APRN tomorrow 4p) [place] [address] [facility] [phone] CENTER GASTROENTEROLOGY DEPT. [place], [place] [address] Social History Tobacco Use Types Packs/Day Years Used Date Never Smoker Smokeless Tobacco: Never Used Alcohol Use Standard Drinks/Week Comments Yes 1.7 (1 standard drink = 0.6 oz pure alco hol) Sex Assigned at Date Recorded Not on file documented as of this encounter Miscellaneous Notes Telephone Encounter - Latonia Lama RN - 10/11/2012 12:00 PM EST Per Olive marie DENTAL HYGIENE PROFESSOR - can see pt at 4pm tomorrow as pt requests exam for new painful lump L abdomen. Wonders if this is a hernia from vomiting too much? I left a message for pt on her machine and I Will ask scheduling to try back with pt today hopefullyto schedule the 4pm tomorrow. documented in this encounter Plan of Treatment Not on filedocumented as of this encounter Visit Diagnoses Not on filedocumented in this encounter Care Teams Leather Seasoner Relationship Specialty Start Date End Date Cyndi Bynum MD PCP - General 06/10/12 08/08/13 [address] [place] [address] documented as of this encounter
--- OUTSIDE RECORDS SUMMARY | 2022-08-28 15:50 | XMS_ITS | Encounter Summary ---
:1990 Author Organization [facility] [place] [address] Care Team Providers Name Role Phone Cyndi Bynum MD Primary Care Provider Encounter Details Date Type Department Care Team Description 09/13/2012 Telephone [place]astroenterology [place] [address] Social History Tobacco Use Types Packs/Day Years Used Date Never Smoker Smokeless Tobacco: Never Used Alcohol Use Standard Drinks/Week Comments Yes 1.7 (1 standard drink = 0.6 oz pure alco hol) Sex Assigned at Date Recorded Not on file documented as of this encounter Miscellaneous Notes Telephone Encounter - Latonia Lama RN - 09/20/2012 9:32 AM EDT error documented in this encounter Plan of Treatment Not on filedocumented as of this encounter Visit Diagnoses Not on filedocumented in this encounter Care Teams Senior Sql Server Developer Relationship Specialty Start Date End Date Cyndi Bynum MD PCP - General 06/10/12 08/08/13 [address] [place] [address] documented as of this encounter
--- OUTSIDE RECORDS SUMMARY | 2022-08-28 15:50 | XMS_ITS | Encounter Summary ---
:1990 [place] [address] Care Team Providers Name Role Phone Cyndi Bynum MD Primary Care Provider Encounter Details Date Type Department Care Team Description 10/12/2012 Hospital Encounter Nuclear Medicine at [facility], [place] [address] Social History Tobacco Use Types Packs/Day [...] Name Priority Date/Time Associated Diagnosis Comme nts NM GASTRIC EMPTYING Routine 10/12/2012 2:06 PM Pain Re sults for this SCAN EST procedure are i n the results section. documented in this encounter Results NM gastric emptying scan (10/12/2012 2:06 PM EST) Anatomical Region Laterality Modality Other Specimen (Source) Anatomical Collection Method Collection Time Re ceived Time Location / / Volume Laterality 10/12/2012 2:06 PM EST Narrative 10/12/2012 2:55 PM EST Examination GASTRIC EMPTYING SCAN Clinical History LOWER LEFT QUADRANT PAIN Comparison None ?? Technique A standard meal was labeled with 0.6 mil licuries of technetium 99m sulfur colloid and ingested. ??Images of the st omach were then obtained in the anterior and posterior projections immediately th ereafter and 1, 2 and 4 hours later. Findings Activity fills the stomach in the initia l image. ??Small bowel is visible at 1 hour. ??There is a substantial amount of residual activity in the stomach at 4 hours. Quantitative analysis: ??At 2 hours, 58 % of the ingested meal remains within the stomach and at 4 hours 32 % remained (normal less than 60 and 10 % respectively). Impression Abnormal gastric emptying. The gastric emptying is borderline at 2 hours but markedly abnormal at 4 hours. Procedure Note Oracio Hdz MD - 10/12/2012 Examination GASTRIC EMPTYING SCAN Clinical History LOWER LEFT QUADRANT PAIN Comparison None Technique A standard meal was labeled with 0.6 mil licuries of technetium 99m sulfur colloid and ingested. Images of the stom ach were then obtained in the anterior and posterior projections immediately th ereafter and 1, 2 and 4 hours later. Findings Activity fills the stomach in the initia l image. Small bowel is visible at 1 hour. There is a substantial amount of r esidual activity in the stomach at 4 hours. Quantitative analysis: At 2 hours, 58 % of the ingested meal remains within the stomach and at 4 hours 32 % remained (normal less than 60 and 10 % respectively). Impression Abnormal gastric emptying. The gastric emptying is borderline at 2 hours but markedly abnormal at 4 hours. Dave Babcock MD IMG NM ORDERABLES documented in this encounter Visit Diagnoses Diagnosis Pain Generalized pain documented in this encounter Care Teams Laboratory Mechanic Helper Relationship Specialty Start Date End Date Cyndi Bynum MD PCP - General 06/10/12 08/08/13 [address] [place] [address] documented as of this encounter
--- OUTSIDE RECORDS SUMMARY | 2022-08-28 15:50 | XMS_ITS | Encounter Summary ---
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 [address] Social History Tobacco Use Types Packs/Day Years Used Date Never Smoker Smokeless Tobacco: Never Used Alcohol Use Standard Drinks/Week Comments Yes 1.7 (1 standard drink = 0.6 oz pure alco hol) Sex Assigned at Date Recorded Not on file documented as of this encounter Progress Notes Gee Xiongor, RN - 06/17/2012 11:20 AM EDT Spoke with pt regarding egd/colo. Pt continues with sx. ?functional. May consider desipramine. Pt notes when she was younger, she was on elavil for a nervous stomach. may consider further testing to complete any concerns for obstructive process. documented in this encounter Plan of Treatment Not on filedocumented as of this encounter Results XR Fluoro small bowel only (06/24/2012 10:58 AM EDT) Anatomical Region Laterality Modality Abdomen N/A Radiographic Imaging Specimen (Source) Anatomical Collection Method Collection Time Re ceived Time Location / / Volume Laterality 06/24/2012 10:58 AM EDT Narrative 06/24/2012 4:34 PM EDT Examination SMALL BOWEL ONLY Clinical History Reason for exam and clinical history: n/ v ?obstructive process; Comparison None Technique A double contrast barium evaluation of t he stomach was performed after consumption of effervescent crystals. A small bowel follow through was performed using intermittent fluoroscopy . Total fluoroscopy time: 1 minutes 31 sec onds Findings Associate Engineer view of the abdomen shows a paucit y of small bowel gas with air and a significant amount of stool seen through out the colon. The barium passed rapidly through the esophagus into the s tomach. The GE junction distended appropriately and allowed for rapid fill ing of the stomach. Spot images of the stomach demonstrated no abnormalities. T he duodenal bulb and C sweep are within normal limits. The small bowel was studi ed to the level of a normal appearing terminal ileum. Transit time was within normal limits. Impression Normal small bowel follow-through Film and interpretation reviewed by the attending Procedure Note Nancy Leong MD - 06/24/2012Forma tting of this note might be different from the original. Examination SMALL BOWEL ONLY Clinical History Reason for exam and clinical history: n/ v ?obstructive process; Comparison None Technique A double contrast barium evaluation of t he stomach was performed after consumption of effervescent crystals. A small bowel follow through was performed using intermittent fluoroscopy . Total fluoroscopy time: 1 minutes 31 sec onds Findings Associate Engineer view of the abdomen shows a paucit y of small bowel gas with air and a significant amount of stool seen through out the colon. The barium passed rapidly through the esophagus into the s tomach. The GE junction distended appropriately and allowed for rapid fill ing of the stomach. Spot images of the stomach demonstrated no abnormalities. T he duodenal bulb and C sweep are within normal limits. The small bowel was studi ed to the level of a normal appearing terminal ileum. Transit time was within normal limits. Impression Normal small bowel follow-through Film and interpretation reviewed by the attending Dave Babcock MD IMG FLUORO ORDERABLES NM functional biliary scan (06/23/2012 10:01 AM [...] of 1.6 ucg. ??Imaging continued in the [place] projection for 31 m inutes. Findings There [...] of 1.6 ucg. Imaging continued in the [place] projection for 31 m inutes. Findings There [...] Visit Diagnoses Diagnosis N&V (nausea and vomiting) - Primary Nausea with vomiting N&V (nausea and vomiting) Nausea with vomiting N&V (nausea and vomiting) Nausea with vomiting documented in this encounter Care Teams Bindery Machine Feeder Offbearer Relationship Specialty Start Date End Date Cyndi Bynum MD PCP - General 06/10/12 08/08/13 [address] [place] [address] documented as of this encounter
--- OUTSIDE RECORDS SUMMARY | 2022-08-28 15:50 | XMS_ITS | Encounter Summary ---
:1990 Author Organization [facility] [place] [address] Care Team Providers Name Role Phone Cyndi Bynum MD Primary Care Provider Reason for Visit Reason Comments GI Problem Encounter Details Date Type Department Care Team Description 06/10/2012 Office [place] [facility] [place]ong Xiong Vomiting ([facility] Arlene smith [place]N [place]) [place] [address] [facility] [phone] CENTER GASTROENTEROLOGY [place] [address] Social History Tobacco Use Types Packs/Day Years Used Date Never Smoker Smokeless Tobacco: Never Used Sex Assigned at Date Recorded Not on file documented as of this encounter Last Filed Vital Signs Vital Sign Reading Time Taken Comments Blood Pressure 121/65 06/10/2012 12:00 PM EDT Pulse 85 06/10/2012 12:00 PM EDT Temperature - - Respiratory Rate - - Oxygen Saturation - - Inhaled Oxygen Concentration - - Weight 84.4 kg (186 lb) 06/10/2012 12:00 PM EDT Height 161.3 cm (5' 3.5) 06/10/2012 12:00 PM EDT Body Mass Index 32.43 06/10/2012 12:00 PM EDT documented in this encounter Progress Notes Gee Xiongor, RN - 06/10/2012 12:43 PM EDT Section of Gastroenterology and Hepatology [address] [place] [address] [id number] .Magda Mattson : 1990 Patient is here for further evaluation of gastrointestinal symptoms at the request of Cyndi Cooper. HPI: Sx since November 2011. Began with vomiting and diarrhea. Had to be brought to local ER for IV hydration due to 9 hrs of vomiting. No changes at the time of sx onset. 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 Gained 43 poundsin 3-4 months. In March weighed 195 pounds, weighed self again 4 days later and was 203 pounds. But since then she has lost 19 pounds. .Cannot handle fatty foods, dairy, chese, greasy foods, sauces. Celiac serologies negative. Thyroid negative. Cushings negative. No pattern to vomiting. Does not have tofood related. No appetite. Having water and Gatorade. Having right upper quadrant pain, wrapping around side to her back. The above foods can trigger these sx and she can awake during the night with these sx. No hx of heartburn. Sometimes will experience regurgitation, acid taste. No dysphagia, odynophagia, chest pain, ent concerns. No food allergies. Early satiety. No bloat, distention. Diarrhea daily, frequency varies. Watery in nature. No blood. No nsaids. Intermittent urgency. No incontinence. Mucus in stools. Cold chills. Afebrile. Some lower abdominal cramping, relieved with passage of stool or flatus. Pepto has helped vomiting and diarrhea. Tums helped to calm her stomach. Tried Prilosec 20mg qd, helped and lessened her vomiting. Imodium was helpful. History Social History ??? Marital Status: Single Spouse Name: N/A Number of Children: N/A ??? Years of Education: N/A Occupational History ??? Not on file. Social History Main Topics ??? Smoking status: Never Smoker ??? Smokeless tobacco: Never Used ??? Alcohol Use: Not on file ??? Drug Use: Not on file ??? Sexually Active: Not on file Other Topics Concern ??? Not on file Social History Narrative ??? No narrative on file Medical History: noncontributory Surgical History: cyst of wrist, appendectomy Family History: no gi etiologies Allergies Allergen Reactions ??? Amoxicillin Current outpatient prescriptions:norethindrone-e.estradiol-iron (LO LOESTRIN FE) 1 mg-10 mcg(24) /10mcg (2) Tab, Take by mouth daily., Disp: , Rfl: ; DISCONTD: amitriptyline (ELAVIL) 25 mg tablet, 25MG, PO, QHS, Disp: , Rfl: Review of Systems - Negative except General: Cardiac: Resp: GI: see above : MS: Neuro: Skin: Psyche: Sleep: Endo: Physical Exam: soft, tender in ruq, ?hepatomegaly Impression: 1. N/v and diarrhea: ?obstructive process. ?inflammatory process. ?role of control (gallbladder disease). Upper and lower endoscopy. Abdominal u/s, ?hepatomegaly. Obtain cbc, cmp, tsh, crp. Zofran 4mg q8hrs prn. Clear liquids. Imodium prn. F/u with pt once results received. I spent a total of 53 minutes face to face with this patient; 34 minutes were spent counseling the patient in the medical problems described above. Sincerely, Huong Xiong NP Section of Gastroenterology and Hepatology documented in this encounter Plan of Treatment Not on filedocumented as of this encounter Procedures Procedure Name Priority Date/Time Associated Comments Diagnosis DIFFERENTIAL, Routine 06/10/2012 1:42 PM Results for this AUTOMATED EDT procedure are i n the results section. CBC (WITH DIFF) Routine 06/10/2012 1:42 PM Vomiting Result s for this EDT procedure are i n the results section. CRP, CARDIAC RISK (HS Routine 06/10/2012 1:42 PM Vomiting Results for this CRP) EDT procedure are i n the results section. TSH Routine 06/10/2012 1:42 PM Vomiting Results f or this EDT procedure are i n the results section. COMPREHENSIVE Routine 06/10/2012 1:42 PM Vomiting Results for this METABOLIC PANEL EDT procedure ar e in (NON-FASTING) the results section. UPPER GI ENDOSCOPY Routine 06/10/2012 12:43 PM EDT COLONOSCOPY Routine 06/10/2012 12:43 PM EDT documented in this encounter Results US abdomen limited (06/11/2012 1:15 PM EDT) Anatomical Region Laterality Modality Abdomen Ultrasound Specimen (Source) Anatomical Collection Method Collection Time Re ceived Time Location / / Volume Laterality 06/11/2012 1:15 PM EDT Narrative 06/11/2012 1:39 PM EDT ?Abdominal ?(Signed Final 06/11/2012 01:39 pm) Patient Info ID: ? [id number] ?: ??[birth year] (21 yrs) Name: ? MAGDA Linares ? Visit Date: 06/11/2012 01:13 pm ? BEAUSOLEIL Performed By Performed By: ? Robina Metz RDMS Associate: ?Kale VILLANUEVA, Ross singer Attending: ?Hang VILLANUEVA, Ubaldo Rust Referred By: ?HUONG PEDRAZA P Service(s) Provided UABDLIM - Abdominal Limited Survey Sing le Organ ?[id number] or Quadrant - [id number] Indications Ruq pain ? gallbladder ----- Liver ----- Right Lobe Length: ?? 13 ?cm Echogenicity/Echotexture: ?? Normal Gallbladder Cholelithiasis: ?No stones visua lized Wall Thickness: ?Normal wall thi ckness Focal Tenderness: ?No positive Murp hy's sign Biliary Tract Intrahepatic Ducts: ?Normal Extrahepatic Ducts: ?Normal Common Duct Size: ?3.5 ?mm -------- Pancreas -------- Head: ?Limited vi ews Tail: ?Poorly vis ualized due to overlying bowel Body: ?Normal Right Kidney Size (cm) ? L: ??11.2 Cortical Thickness: ?Normal Cortical Echogenicity: ?? Normal Hydronephrosis: ?No sonogr aphic evidence Impression Ultrasound - Abdomen Limited - Summary Normal RUQ ultrasound exam. I ??viewed the images and agree with rufino kong above interpretation. Thank you for allowing us to participat e in the care of MAGDA MATTSON. Please do not hesi rainey to call if you have any questions. ?Ubaldo Mauricio MD Electronically Signed Final Report ?? 01:39 pm Film and interpretation reviewed by the attending Procedure Note Ubaldo Mauricio MD - 06/11/2012Formatt ing of this note might be different from the original. Abdominal (Signed Final 06/11/2012 01:39 pm) Patient Info ID: [id number] : [birth year] (21 yrs ) Name: MAGDA Linares Visit Date: 06/11/2012 0 1:13 pm BEZEKEOLEALICE Performed By Performed By: Robina Metz [facility] Associate: Devyn Henley MD Attending: Ubaldo Mauricio MD. Referred By: HUONG SANDOVAL Service(s) Provided UABDLIM - Abdominal Limited Survey Sing le Organ [id number] or Quadrant - [id number] Indications Ruq pain ? gallbladder ----- Liver ----- Right Lobe Length: 13 cm Echogenicity/Echotexture: Normal Gallbladder Cholelithiasis: No stones visualized Wall Thickness: Normal wall thickness Focal Tenderness: No positive Francis's sign Biliary Tract Intrahepatic Ducts: Normal Extrahepatic Ducts: Normal Common Duct Size: 3.5 mm -------- Pancreas -------- Head: Limited views Tail: Poorly visualized due to overlyin g bowel Body: Normal Right Kidney Size (cm) L: 11.2 Cortical Thickness: Normal Cortical Echogenicity: Normal Hydronephrosis: No sonographic evidence Impression Ultrasound - Abdomen Limited - Summary Normal RUQ ultrasound exam. I viewed the images and agree with the above interpretation. Thank you for allowing us to participat e in the care of MAGDA MATTSON. Please do not hesi rainey to call if you have any questions. Ubaldo Mauricio MD Electronically Signed Final Report 06/11 01:39 pm Film and interpretation reviewed by the attending Dave Babcock MD IMG US GEN ORDERABLES DIFFERENTIAL, AUTOMATED (06/10/2012 1:42 PM EDT) athologist Signature Neutrophils % 55.1 34.0 - CERNER 71.0 % MILLENNIUM Neutr Abs (ANC) 3.39 1.50 - CERNER 6.30 MILLENNIUM x10(3)/mcL Lymphocytes % 35.1 19.0 - CERNER 53.0 % MILLENNIUM Lymphocytes Abs 2.2 1.0 - 3.6 CERNER x10(3)/mcL MILLENNIUM Monocytes % 8.3 4.0 - 13.0 CERNER % MILLENNIUM Monocyte Abs 0.5 0.2 - 1.0 CERNER x10(3)/mcL MILLENNIUM Eosinophils % 1.3 0.0 - 7.0 CERNER % MILLENNIUM Eosinophils Abs 0.1 0.0 - 0.5 CERNER x10(3)/mcL MILLENNIUM Basophils % 0.2 0.0 - 2.0 CERNER % MILLENNIUM Basophils Abs 0.0 0.0 - 0.2 CERNER x10(3)/mcL MILLENNIUM Immature Gran % 0.00 0.00 - CERNER 0.66 % MILLENNIUM Comment: Immature granulocytes(IG's)percentage an d absolute count will include metamyelocytes, myelocytes, and promyelo cytes. Blood smears from CBCs yielding IG's will be scanned manually for concor dance. If this scan disagrees with the automated IG or if promyelocytes are not ed, a manual differential will be performed. Lucretia Gran Abs 0.00 0.00 - 0.05 x10(3)/mcL CER NER MILLENNIUM Specimen Anatomical Collection Method Collection Time Receive d Time (Source) Location / / Volume Laterality Blood specimen 06/10/2012 1:42 PM 012 1:52 (specimen) EDT PM EDT Dave Babcock MD HEMATOLOGY ORDERABLES Performing Organization Address City/State/ZIP Code Phon e Number [place] [id number] CERNER MILLENNIUM High Sensitivity CRP (06/10/2012 1:42 PM EDT) athologist Signature CRP High Sens 7.1 mg/L CERNER MILLENNIUM Comment: Interpretations: 1) For cardiac risk assessment, two valu es (fasting or nonfasting sample acceptable) taken at least 2 weeks apart , should be averaged to provide a more reliable estimate of marker level. ??Thi s laboratory uses the recommendations from the AHA/CDC Scientific Statement fo r interpretations of future risks of cardiovascular events: ? <1.0 mg/L: low risk 1.0 - 3.0 mg/L: moderate risk >3.0 mg/L: high risk groups for future c ardiovascular events 2) The general reference range of appare ntly healthy individuals using this test is <5.0 mg/L (derived from the test package insert) A few words of caution: For cardiac asse ssment, when a value >10 mg/L is encountered, there should be a search fo r an acute inflammatory condition or infection (in patients with acute inflam mation, the concentration can increase to >500 mg/L). ??The >10 mg/L should be discarded if such a situation exists, since the risk for coronary heart diseas e cannot be provided, and a repeat specimen, taken at least two weeks after resolution of the acute inflammatory condition, may allow for appraisal of co ronary risk information. Please note that significantly decreased CRP values may be obtained from samples taken from patients who have bee n treated with carboxypenicillins. References: 1. Patrick KAUR et. al. ??AHA/CDC Scientif ic Statement: Markers of Inflammation and Cardiovascular Disease. ??Circulatio n 2003; 107:499-511 2. Filiberto PM. ??Clinical applications of C-reactive protein for cardiovascular disease detection and prevention. ??Circ ulation 2003; 107:363-369 Specimen Anatomical Collection Method Collection Time Receive d Time (Source) Location / / Volume Laterality Blood specimen 06/10/2012 1:42 PM 012 1:52 (specimen) EDT PM EDT Resulting Agency Comment Spec In Lab Dave Babcock MD CHEMISTRY ORDERABLES Performing Organization Address City/State/Z[place] [address] SRINATH PARKER TSH (06/10/2012 1:42 PM EDT) P athologist Signature TSH 0.78 0.27 - 4.20 CERNER mcIU/mL [facility] Specimen Anatomical Collection Method Collection Time Receive d Time (Source) Location / / Volume Laterality Blood specimen 06/10/2012 1:42 PM 012 1:52 (specimen) EDT PM EDT Resulting Agency Comment Spec In Lab Dave Babcock MD CHEMISTRY ORDERABLES Performing Organization Address City/State/ZIP [place] [address] CERNER MILLENNIUM Comprehensive metabolic panel (non-fasting) (06/10/2012 1:42 PM EDT) P athologist Signature Glucose Lvl 110 60 - 199 CERNER mg/dL MILLENNIUM Comment: Diabetes: >=200 mg/dL plus symp toms BUN 11 8 - 18 mg/dL CERNER MILLENNIUM Creatinine 0.88 0.70 - 1.20 mg/dL CERNER MILL ENNIUM Comment: Please note that the pediatric reference intervals supplied above were not validated at [facility]. Results from pediatri c patients should be interpreted in conjunction to the patient's age, height and muscle mass. Sodium 139 135 - 145 mmol/L CERNER TERESITA NIUM Potassium 4.1 3.5 - 5.0 mmol/L CERNER TERESITA NIUM Comment: Please note: ??Patients with WBC >100,00 0 may have falsely elevated Potassium levels. ??For accurate Potassium quantif ication in these patients send serum separator tube (gold top) for subsequent determinations. ??Contact the Clinical Chemistry Laboratory if there are any qu estions. Chloride 105 98 - 107 mmol/L CERNER MILLENN IUM CO2 26 22 - 31 mmol/L CERNER MILLENNI UM Anion Gap 8 5 - 15 mmol/L CERNER MILLENNIU M Calcium 9.1 8.5 - 10.5 mg/dL CERNER TERESITA NIUM Total Protein 7.1 6.4 - 8.3 gm/dL CERNER MIL LENNIUM Albumin 4.1 3.2 - 5.2 gm/dL CERNER MILLENN IUM AST 14 0 - 30 unit/L CERNER MILLENNIU M ALT 14 0 - 30 unit/L CERNER MILLENNIU M Alk Phos 61 40 - 104 unit/L CERNER MILLENN IUM Total Bilirubin 0.6 0.2 - 1.3 mg/dL CERNER M ILLENNIUM Bili, Direct 0.1 0.0 - 0.3 mg/dL CERARMANDO MILL ENNIUM Estimated GFR >60 >=60 SRINATH GARCIACarolineVeronica Kimo Comment: The National Kidney Disease Education Pr ogram (NKDEP) has recommended all laboratories report estimated GFR (eGFR) along with plasma creatinine measurements to assist you with recognit ion of early kidney disease. Caveats: ??Plasma creatinine should be a t steady-state (unchanged within the past week). For patient s multiply eGFR by 1.2. The MDRD equation was developed using patients be tween the ages of 18 and 70 years. ?? The MDRD equation has not been validated for patients < 18 years of age and should not be used to assess renal function in the pediatric population. ??The MDRD eGFR equation will also overestimate the true GFR of patients above the age of 70. ??This overestimation is variable bu t increases with age. At present, NKDEP does NOT recommend usi ng the MDRD equation for drug dosing purposes and pharmacists should continue to use their current dosing methods. In addition, numerical eGFR values great er than 60 ml/min/1.73 square meters should be treated as > 60, and not an ex act number due to greater inaccuracies at these higher values. Per NKDEP, they classify normal renal function as any GFR >60ml/min/1.73 square meters; chronic kidney disease wh en GFR <60, and renal failure when GFR <15. ??This calculation may not be valid for patients with atypical muscle mass (very lean or obese), acute renal failur e, and in patients with diabetic kidney disease. References: http://nkdep.nih.gov/resources/NKDEP_Sug gestn4Labs_0606_508.pdf http://www.kidney.org/professionals/kls/ pdf/faq_gfr.pdf Janene K, Ju NA, Maggie AK, Beny TS, Tim AD, Jeovanny EVA. Relative performance of the MDRD and CKD-EPI equa tions for estimating glomerular filtration rate among patients with vari ed clinical presentations. Clin J Am Soc Nephrol;6:1963-72. Specimen Anatomical Collection Method Collection Time Receive d Time (Source) Location / / Volume Laterality Blood specimen 06/10/2012 1:42 PM 012 1:52 (specimen) EDT PM EDT Resulting Agency Comment Spec In Lab Dave Babcock MD CHEMISTRY ORDERABLES Performing Organization Address City/[facility]/[place] [address] CERNER MILLENNIUM CBC (with Diff) (06/10/2012 1:42 PM EDT) P athologist Signature WBC 6.2 4.0 - 10.0 CERNER x10(3)/mcL MILLENNIUM RBC 4.72 3.93 - 5.22 CERNER x10(6)/mcL MILLENNIUM Hemoglobin 13.2 11.2 - 15.7 CERNER gm/dL MILLENNIUM Hematocrit 40.2 34.0 - 45.0 CERNER % MILLENNIUM MCV 85.2 79.0 - 94.0 CERNER fL MILLENNIUM MCH 28.0 26.6 - 32.2 CERNER pg MILLENNIUM MCHC 32.8 32.0 - 36.5 CERNER gm/dL MILLENNIUM Platelets 280 145 - 370 CERNER x10(3)/mcL MILLENNIUM RDWSD 39.4 35.0 - 46.0 CERNER fL MILLENNIUM RDWCV 12.7 10.9 - 14.4 CERNER % MILLENNIUM MPV 10.7 9.0 - 12.0 CERNER fL MILLENNIUM Specimen Anatomical Collection Method Collection Time Receive d Time (Source) Location / / Volume Laterality Blood specimen 06/10/2012 1:42 PM 012 1:52 (specimen) EDT PM EDT Resulting Agency Comment Spec In Lab Dave Babcock MD HEMATOLOGY ORDERABLES Performing Organization Address City/[facility]/[place] [address] CERNER MILLENNIUM documented in this encounter Visit Diagnoses Diagnosis Vomiting - Primary Vomiting alone Vomiting Vomiting alone documented in this encounter Care Teams Clinical Care Coordinator Relationship Specialty Start Date End Date Cyndi Bynum MD PCP - General 06/10/12 08/08/13 [address] [place] [address] documented as of this encounter
--- OUTSIDE RECORDS SUMMARY | 2022-08-28 15:50 | XMS_ITS | Encounter Summary ---
:1990 Author Organization [facility] [place] [address] Care Team Providers Name Role Phone Cyndi Bynum MD Primary Care Provider Encounter Details Date Type Department Care Team Description 06/18/2012 Orders Only Gastroenterology at [facility] Olive Xiong, [facility] [place] [address] [facility] [phone] GASTROENTEROLOGY DEPT. [place], [place] [address] (Wo rk) Social History Tobacco Use Types Packs/Day Years Used Date Never Smoker Smokeless Tobacco: Never Used Alcohol Use Standard Drinks/Week Comments Yes 1.7 (1 standard drink = 0.6 oz pure alco hol) Sex Assigned at Date Recorded Not on file documented as of this encounter Progress Notes Gee Xiongor, RN - 06/18/2012 9:15 AM EDT Pt made aware of egd/colo results. Waiting bx results. Pt continues with sx, reports they are worse.We discussed whether to consider medication or further testing. Pt would like to consider further testing. Will consider hida and sbft. F/u with pt once results received. documented in this encounter Plan of Treatment Not on filedocumented as of this encounter Visit Diagnoses Not on filedocumented in this encounter Care Teams Home Care Liaison Relationship Specialty Start Date End Date Cyndi Bynum MD PCP - General 06/10/12 08/08/13 [address] [place] [address] documented as of this encounter
--- OUTSIDE RECORDS SUMMARY | 2022-08-28 15:50 | XMS_ITS | Encounter Summary ---
:1990 Author Organization [facility] [place] [address] Care Team Providers Name Role Phone Cyndi Bynum MD Primary Care Provider Reason for Visit Reason Onset Date Comments Prior Authorization 08/02/2012 Omeprazole Encounter Details Date Type Department Care Team Description 08/02/2012 Telephone Gastroenterology at [facility] Lanie Garcia, Prior Authorization [facility] Arlene smith RN (Omeprazole) [place] [address] Social History Tobacco Use Types Packs/Day Years Used Date Never Smoker Smokeless Tobacco: Never Used Alcohol Use Standard Drinks/Week Comments Yes 1.7 (1 standard drink = 0.6 oz pure alco hol) Sex Assigned at Date Recorded Not on file documented as of this encounter Miscellaneous Notes Telephone Encounter - Lanie Garcia CMA - 08/02/2012 11:30 AM EDT Medication: Omeprazole Dosage: 40 mg Frequency & Route: take one by mouth twice daily Insurance & Phone #: [place] [phone] ID #: [id number] Trialed (dosage, frequency): Notes: PA approved from 08/02/12-08/02/13 documented in this encounter Plan of Treatment Not on filedocumented as of this encounter Visit Diagnoses Not on filedocumented in this encounter Care Teams Department Supervisor Relationship Specialty Start Date End Date Cyndi Bynum MD PCP - General 06/10/12 08/08/13 [address] [place] [address] documented as of this encounter
--- OUTSIDE RECORDS SUMMARY | 2022-08-28 15:50 | XMS_ITS | Encounter Summary ---
:1990 Author Organization [facility] [place] [address] Care Team Providers Name Role Phone Cyndi Bynum MD Primary Care Provider Reason for Visit Reason Onset Date Comments Other 09/20/2012 begin new PPI Encounter Details Date Type Department Care Team Description 09/20/2012 Telephone Gastroenterology at [facility] Olive Xiong, Other (begin new PPI) [facility] [place] [address] [facility] [phone] CENTER GASTROENTEROLOGY DEPT. [place], [place] [address] Social History Tobacco Use Types [...] on filedocumented in this encounter Care Teams Planing Machine Operator Relationship Specialty Start Date End Date Cyndi Bynum MD PCP - General 06/10/12 08/08/[address] [place] [address] documented as of this encounter
--- OUTSIDE RECORDS SUMMARY | 2022-08-28 15:50 | XMS_ITS | Encounter Summary ---
:1990 [place] [address] Care Team Providers Name Role Phone Cyndi Bynum MD Primary Care Provider Encounter Details Date Type Department Care Team Description 09/28/2012 Clinical Support [facility] [place] [address] Social History Tobacco Use Types Packs/Day Years [...] on filedocumented in this encounter Care Teams Copy Center Specialist Relationship Specialty Start Date End Date Cyndi Bynum MD PCP - General 06/10/12 08/08/[address] [place] [address] documented as of this encounter
--- OUTSIDE RECORDS SUMMARY | 2022-08-28 15:50 | XMS_ITS | Encounter Summary ---
:1990 Author Organization [facility] [place] [address] Care Team Providers Name Role Phone Cyndi Bynum MD Primary Care Provider Encounter Details Date Type Department Care Team Description 06/11/2012 Hospital Encounter Ultrasound at [facility], [facility] SAY Chery [facility] Dave Babcock MD [facility] [place] [address] [place] [address] Social History Tobacco Use Types Packs/Day [...] Name Priority Date/Time Associated Diagnosis Comme nts US ABDOMEN LIMITED Routine 06/11/2012 1:15 PM Vomiting Res ults for this EDT procedure are i n the results section. documented in this encounter Results US abdomen limited (06/11/2012 1:15 PM EDT) Anatomical Region Laterality Modality Abdomen Ultrasound Specimen (Source) Anatomical Collection Method Collection Time Re ceived Time Location / / Volume Laterality 06/11/2012 1:15 PM EDT Narrative 06/11/2012 1:39 PM EDT ?Abdominal ?(Signed Final 06/11/2012 01:39 pm) Patient Info ID: ? [id number] ?: ??[birth year] (21 yrs) Name: ? MAGDA Linares ? Visit Date: 06/11/2012 01:13 pm ? BEAUSOLEIL Performed By Performed By: ? Robina Metz RDMS Associate: ?Kale VILLANUEVA, Ross singer Attending: ?Hang VILLANUEVA, Ubaldo Rust Referred By: ?HUONG PEDRAZA P Service(s) Provided UABDLIM - Abdominal Limited Survey Sing le Organ ?[id number] or [facility] - [id number] Indications Ruq pain ? gallbladder ----- Liver [...] Final 06/11/2012 01:39 pm) Patient Info ID: [id number] : [birth year] (21 yrs ) Name: MAGDA Linares Visit Date: 06/11/2012 0 1:13 pm BEZEKEOLEALICE Performed By Performed By: Robina Metz [facility] Associate: Devyn Henley MD Attending: Ubaldo Mauricio MD. Referred By: HUONG SANDOVAL Service(s) Provided UABDLIM - Abdominal Limited Survey Sing le Organ [id number] or [facility] - [id number] Indications Ruq pain ? gallbladder ----- Liver [...] Dave Babcock MD IMG US GEN ORDERABLES documented in this encounter Visit Diagnoses Diagnosis Vomiting Vomiting alone documented in this encounter Care Teams Stem Maker Relationship Specialty Start Date End Date Cyndi Bynum MD PCP - General 06/10/12 08/08/13 [address] [facility] [place] [address] documented as of this encounter
--- OUTSIDE RECORDS SUMMARY | 2022-08-28 15:50 | XMS_ITS | Encounter Summary ---
:1990 Author Organization [facility] [address] Care Team Providers Name Role Phone Cyndi Bynum MD Primary Care Provider Encounter Details Date Type Department Care Team Description 06/16/2012 Surgery Gastroenterology at [facility] Danica Reyna MD [place] [address] GASTROENTEROLOGY DEPT. [place], [place] [address] (Wo rk) Social History Tobacco Use Types Packs/Day Years Used Date Never Smoker Smokeless Tobacco: Never Used Alcohol Use Standard Drinks/Week Comments Yes 1.7 (1 standard drink = 0.6 oz pure alco hol) Sex Assigned at Date Recorded Not on file documented as of this encounter Last Filed Vital Signs Vital Sign Reading Time Taken Comments Blood Pressure 127/63 06/16/2012 2:31 PM EDT Pulse 70 06/16/2012 2:31 PM EDT Temperature 36.8 ??C (98.2 ??F) 06/16/2012 12:27 PM EDT Respiratory Rate 20 06/16/2012 2:31 PM EDT Oxygen Saturation 98% 06/16/2012 2:31 PM EDT Inhaled Oxygen Concentration - - Weight - - Height - - Body Mass Index - - documented in this encounter Discharge Instructions Patient InstructionsDanica Reyna MD - 06/16/2012 2:14 PM EDT Please see Recommendations in the Provation procedure report which is documented in the procedural note in E-DH. AttachmentsThe following attachments cannot be sent through Care Everywhere. COLONOSCOPY: WHAT TO EXPECT AT HOME (MEXICAN)UPPER GI ENDOSCOPY: WHAT TO EXPECT AT HOME (MEXICAN)documented in this encounter Medications at Time of Discharge Medication Sig Dispensed Refills Start Date End Date norethindrone-e.estradiol Take by mouth daily. 0 11/04/2017 -iron (LO LOESTRIN FE) 1 mg-10 mcg(24) /10 mcg (2) Tab ondansetron (ZOFRAN) 4 mg Take 1 tablet by 20 tablet 0 05/2307/20/2014 tablet mouth every 8 hours as needed for Nausea. documented as of this encounter H&P Notes Danica Reyna MD - 06/16/2012 12:45 PM EDT See gi consult note; no interval change; clear lungs; RRR; consent signed. documented in this encounter Miscellaneous Notes Miscellaneous - Provider, Scanning - 06/17/2012 3:21 AM EDT Miscellaneous - Provider, Scanning - 06/16/2012 2:09 PM EDT documented in this encounter Plan of Treatment Not on filedocumented as of this encounter Procedures Procedure Name Priority Date/Time Associated Comments Diagnosis SURGICAL PATHOLOGY Routine 06/16/2012 4:00 PM Res ults for this REPORT EDT procedure are i n the results section. SPECIMEN TO PATHOLOGY Routine 06/16/2012 2:16 PM Results for this EDT procedure are i n the results section. SPECIMEN TO PATHOLOGY Routine 06/16/2012 2:16 PM Results for this EDT procedure are i n the results section. SPECIMEN TO PATHOLOGY Routine 06/16/2012 2:16 PM Results for this EDT procedure are i n the results section. COLONOSCOPY, 06/16/2012 1:16 PM vomiting/diarrhea DIAGNOSTIC EDT UPPER GI ENDOSCOPY 06/16/2012 1:16 PM vomiting/diarrhe a EDT COLONOSCOPY Routine 06/16/2012 1:13 PM Results f or this EDT procedure are i n the results section. UPPER GI ENDOSCOPY Routine 06/16/2012 1:12 PM Res ults for this EDT procedure are i n the results section. documented in this encounter Results SURGICAL PATHOLOGY REPORT (06/16/2012 4:00 PM EDT) Component Value Ref Test Analysis Performed At [facility] Range Method Time Signature Surgical CERNER Pathology ? [facility] Report ? Provider: ?? DANICA REYNA ? Pt. Name: ? ? MAGDA SIMS ? Acc #: ?[id number] ?Pt. MRN: ?[id number] ? Col Date: ?? 2 ? /Sex: ?1990,(21 years),Female ? Rec Date: ?? 06/16/2012 ? LOC: ?4T ? SURGICAL PATHOLOGY ? ---Pathologic Diagnosis--- ? Endoscopic biopsies: ? A - Colon, ? Colonic mucosa within normal limits. ? B - Duodenum, ? Duodenal mucosa within norm al limits, including preserved villous ? architecture. ? C - Stomach, ? Gastric fundic gland mucosa with mild nonspecific reactive gastropathy. ? No H. pylori-like microorganism is seen (immuno staining). ? CR-0 ? 06/18/12 ? XL ? 06/18/12 Verified by: ? Camila Quan MD ? Pathologist ? (Electronic Si gnature) ? The attending pathologist whose signature appears o n this report has ? reviewed all diagnostic slides and has edited the yaneth ss and/or ? microscopic portion of the report in rendering the fi nal pathologic ? diagnosis. ? ---Microscopic Description--- ? Slides reviewed, microscopic description not recorded . ? Immunohistochemistry Studies: ? Formalin-fixed, paraf fin-embedded tissue sections are studied using the B- ? SA system technique w ith appropriate positive and negative controls. ??These ? IHC studies provide t he pathologist with adjunctive diagnostic information. ? Antibody specificity has been verified by testing antibodies on a series of ? in-house tissues with known immunohistochemical perfo rmance ? characteristics. The clinical interpretation of any antibody positive ? staining or its absence is evaluated within the zuleyka xt of clinical ? presentation, morphol ogy, histopathological criteria and other diagnostic ? tests. ? Block ?Antibody ? Result (Posi tive/Negative) ? C1 ? H. pylori ?Negative ? ---Gross Description--- ? A - Labeled/Fixative: Colon, formalin. ? [facility] ? Provider: ?? DANICA REYNA ? Pt. Name: ? ? MAGDA SIMS ? Acc #: ?[id number] ?Pt. MRN: ?[id number] ? Col Date: ?? 2 ? /Sex: ?1990,(21 years),Female ? Rec Date: ?? 06/16/2012 ? LOC: ?4T ? SURGICAL PATHOLOGY ? Qty/Size/Weight: ?Three, averaging 0.3 x 0.2 x 0.2 cm. ? Tissue Description: ?? Soft, hayes tissues. ? Sections/Processing: ??(T1) ? B - Labeled/Fixative: Duodenum, formalin. ? Qty/Size/Weight: ?Three, averaging 0.2 cm. ? Tissue Description: ?? Soft, hayes tissues. ? Sections/Processing: ??(T1) ? C - Labeled/Fixative: Stomach, formalin. ? Qty/Size/Weight: ?Five, averaging 0.2 cm. ? Tissue Description: ?? Soft, hayes-pink tissues. ? Sections/Processing: ??(T1) ??vms/PPS ? ---Clinical Information--- ? Specimen Submitted: ? A - Colon ? B - Duodenum ? C - Stomach ? Clinical History/Diagnosis: ? Abdominal pain ? A - Random biopsies ? microscopic colitis ? B - ? celiac ? C - Random ? HP Specimen (Source) Anatomical Collection Method Collection Time Re ceived Time Location / / Volume Laterality 06/16/2012 4:00 PM EDT Danica Reyna MD PATHOLOGY/CYTOLOGY ORDERABLE S Performing Organization Address [facility]/ZIP [facility] Phon e Number [address] SRINATH PARKER Specimen to Pathology (surgical or derm) (06/16/2012 2:16 PM EDT) Specimen Anatomical Collection Method Collection Time Receive d Time (Source) Location / / Volume Laterality AP Specimen 06/16/2012 2:16 PM 2 2:16 EDT PM EDT Narrative SRINATH PARKER - 06/16/2012 2:16 PM E DT Specimen requisition ordered. ??Separate Pathology report to follow Danica Reyna MD PATHOLOGY/CYTOLOGY ORDERABLE S Performing Organization Address City/[facility] Phon e Number [address] CERNER MILLENNIUM Specimen to Pathology (surgical or derm) (06/16/2012 2:16 PM EDT) Specimen Anatomical Collection Method Collection Time Receive d Time (Source) Location / / Volume Laterality AP Specimen 06/16/2012 2:16 PM 2 2:16 EDT PM EDT Narrative CERNER MILLENNIUM - 06/16/2012 2:16 PM E DT Specimen requisition ordered. ??Separate Pathology report to follow Danica Reyna MD PATHOLOGY/CYTOLOGY ORDERABLE S Performing Organization Address City/State/ZIP Code Phon e Michelle WILSON [address] CERNER MILLENNIUM Specimen to Pathology (surgical or derm) (06/16/2012 2:16 PM EDT) Specimen Anatomical Collection Method Collection Time Receive d Time (Source) Location / / Volume Laterality AP Specimen 06/16/2012 2:16 PM 2 2:16 EDT PM EDT [facility]ative [facility] - 06/16/2012 2:16 PM E DT Specimen requisition ordered. ??Separate Pathology report to follow Danica Reyna MD PATHOLOGY/CYTOLOGY ORDERABLE S Performing Organization Address City/[facility]/ZIP Code Phon e Michelle [address] CERNER MILLENNIUM COLONOSCOPY (06/16/2012 1:13 PM EDT) Component Value Ref Test Analysis Performed At [facility] Range Method Time Signature COLONOSCOPY [facility] Endoscopy Patient Name: Magda Sims ? Procedure Date: 06/16/2012 1:13 PM ? Date of : 1990 ? Age: 21 ? Order #: [id number] ? Procedure: ? Colonoscopy Indications: ? Generalized abdominal pain, Chronic ? diarrhea Providers: ? Danica Reyna MD, Ailyn Gillespie, ? RN, Jeremy Bob, Home Sales Consultant Referring : ?Cyndi Bynum MD Requesting Provider: Olive Ivey APRN Medicines: ? Midazolam 4.5 mg IV, Fentanyl 225 ? micrograms IV, Diphenhydramin e 75 mg ? IV Complications: ? No immediate complications. Procedure: ? The procedure, indications, benefi ts, ? risks and alternatives were e xplained [...] The Colonoscope was inserted in the ? anus and under direct visuali zation, ? advanced to the cecum, identi fied by ? appendiceal orifice & ileocec al ? valve. Careful inspection was made as ? the colonoscope was withdrawn . The ? colonoscopy was performed wit hout ? difficulty. The patient gabbi ated the ? procedure fairly well. ? Findings: ? The appendiceal orifice appeared normal. The cecum ? appeared normal. The ascending colon appeared normal. ? Biopsies were taken with a cold forceps from the ? ascending colon, transverse colon and descending ? colon for evaluation of microscopic colitis. The ? transverse colon appeared normal. The descending ? colon appeared normal. The sigmoid colon appeared ? normal. The rectum appeared normal. ? Impression: ?- The appendiceal orifice is viktoriya l. ? - The cecum is normal. ? - The ascending colon is norm al. This ? was biopsied. ? - The transverse colon is nor mal. ? - The descending colon is nor mal. ? - The sigmoid colon is normal . ? - The rectum is normal. ? - Biopsies were taken with a cold ? forceps from the ascending co constantin, ? transverse colon and descendi ng colon ? for evaluation of microscopic colitis. Recommendation: ?- Await pathology results. ? - letter will be sent to celsa ju and ? referring provider in - [place]. ? - Return to primary care phys ician as ? previously scheduled. ? Attending Participation: ? I personally performed the entire procedure. ? Danica Reyna MD 06/16/2012 1:54 PM ? Number of Addenda: 0 Note Initiated On: 06/16/2012 1:13 PM Specimen (Source) Anatomical Collection Method Collection Time Re ceived Time Location / / Volume Laterality 06/16/2012 1:13 PM EDT Cyndi Bynum MD GENERAL SURGICAL ORDERABLES Performing Organization Address City/State/ZIP Code Phon e Number [facility] UPPER GI ENDOSCOPY (06/16/2012 1:12 PM EDT) Component Value Ref Test Analysis Performed At [facility] Range Method Time Signature UPPER GI [facility]ATION ENDOSCOPY Endoscopy Patient Name: Magda Sims ? Procedure Date: 06/16/2012 1:12 PM ? Date of : 1990 ? Age: 21 ? Order #: [id number] ? Procedure: ? Upper GI endoscopy Indications: ? Dyspepsia Providers: ? Danica Reyna MD, Ailyn Gillespie, ? Jeremy COLEMAN, Home Sales Consultant Referring MD: ?Cyndi Bynum MD Requesting Provider: Olive Ivey APRN Medicines: ? Midazolam 2 mg IV, Fentanyl 100 ? micrograms IV, Diphenhydramin e 25 mg ? IV, Benzocaine spray Complications: ? No immediate complications. Procedure: ? The procedure, indications, benefi ts, ? risks and alternatives were e xplained ? to the patient. Specifically ? discussed were potential ? complications including, but not ? limited to, bleeding, perfora tion, ? infection, missing a cancer, and ? adverse medication reactions. The ? Endoscope was introduced thro h the ? mouth, and advanced to the ird part ? of duodenum. The patient tole rated ? the procedure well. The upper GI ? endoscopy was accomplished wi thout ? difficulty. ? Findings: ? The examined duodenum was normal. Biopsies were taken ? with a cold forceps for histology to rule out celiac ? disease (jar 2). The entire examined stomach was ? normal. Biopsies were taken with a cold forceps for ? histology from throughout the stomach to rule out h. ? pylori (jar 3). The Z-line was regular and was found ? 40 cm from the incisors. The examined esophagus was ? normal. ? Impression: ?- Normal examined duodenum. This w as ? biopsied. ? - Normal stomach. This was bi opsied. ? - Z-line regular, 40 cm from the ? incisors. ? - Normal esophagus. Recommendation: ?- Await pathology results. ? - Letter will be sent to celsa dodd and ? referring providers in 8-10 d ays. ? - Return to primary care phys chaan as ? previously scheduled. ? Attending Participation: ? I personally performed the entire procedure. ? Danica Reyna MD 06/16/2012 2:20 PM ? Number of Addenda: 0 Note Initiated On: 06/16/2012 1:12 PM Specimen (Source) Anatomical Collection Method Collection Time Re ceived Time Location / / Volume Laterality 06/16/2012 1:12 PM EDT Cyndi Bynum MD GENERAL SURGICAL ORDERABLES Performing Organization Address City/State/ZIP Code Phon e Number [facility] documented in this encounter Visit Diagnoses Not on filedocumented in this encounter Administered Medications Inactive Administered Medications - up to 3 most recent administrations Medication Order MAR Action Action Date Dose Rate Site diphenhydrAMINE (BENADRYL) Given 06/16/2012 1:59 PM EDT 25 mg injection ONCE PRN, Starting on Thu06/16/12 at 1323, Until Thu06/16/12 at 1838, Itching, Intra-Operative (Intra-Procedure), Routine Given 06/16/2012 1:30 PM EDT 25 mg Given 06/16/2012 1:25 PM EDT 25 mg fentaNYL 50mcg/mL injection Given 06/16/2012 2:05 PM EDT 50 mcg ONCE PRN, Starting on Thu06/16/12 at 1323, Until Thu06/16/12 at 1838, Pain, Intra-Operative (Intra-Procedure), Routine Given 06/16/2012 1:59 PM EDT 50 mcg Given 06/16/2012 1:46 PM EDT 25 mcg midazolam (VERSED) injection Given 06/16/2012 2:05 PM EDT 1 mg ONCE PRN, Starting on Thu06/16/12 at 1323, Until Thu06/16/12 at 1838, Sleep, Intra-Operative (Intra-Procedure), Routine Given 06/16/2012 1:59 PM EDT 1 mg Given 06/16/2012 1:46 PM EDT 0.5 mg documented in this encounter Active and Recently Administered Medications Times are shown in EDT. PRN Medication Order 06/14/2012 06/15/2012 06/16/2012 diphenhydrAMINE (BENADRYL) injection (CANCELED) 1323 (Given - Provider: Ailyn Gillespie RN - Comment: moderate sedation started )1325 (Given - Provider: Ailyn Gillespie RN - Comment: awake, crying)1330 (Given - Provider: Ailyn Gillespie RN) ONCE PRN, Starting Thu06/16/12 at 1323, Until Thu06/16/12 at 1838, Itching, Intra-Operative (Intra-Procedure), Routine 1346 (Canceled Entry - Provider: Ailyn Gillespie RN)1359 (Given - Provider: Ailyn Gillespie RN) fentaNYL 50mcg/mL injection (CANCELED) 1323 (Given - Provider: Ailyn Gillespie RN - Comment: moderate sedation started )1326 (Given - Provider: Ailyn Gillespie RN - Comment: awake)1330 (Given - Provider: Ailyn Gillespie RN - Comment: pt crying, talking in subjects that seem nott ONCE PRN, Starting Thu06/16/12 at 1323, Until Thu06/16/12 at 1838, Pain, Intra- Operative (Intra-Procedure), Routine o m tami sense )1335 (Given - Provider: Ailyn Gillespie RN)1339 (Given - Provider: Ailyn Gillespie RN - Comment: pt crying hysterically despite sedation. inconsoleable)1346 (Given - Provider: Ailyn Gillespie RN) 1359 (Given - Pr ovider: Ailyn Gillespie RN - Comment: pt crying, anxious)1405 (Given - Provider: Ailyn Gillespie RN - Comment: crying, anxious) midazolam (VERSED) injection (CANCELED) 1323 (Given - Provider: Ailyn Gillespie RN - Comment: moderate sedation started )1326 (Given - Provider: Ailyn Gillespie RN - Comment: awake)1330 (Given - Provider: Ailyn Gillespie RN)1335 (Given - Provider: Ailyn Gillespie RN) ONCE PRN, Starting Thu06/16/12 at 1323, Until Thu06/16/12 at 1838, Sleep, Intra- Operative (Intra-Procedure), Routine 133 9 (Given - Provider: Ailyn Gillespie RN - Comment: pt anxious, crying)1346 (Given - Provider: Ailyn Gillespie RN)1359 (Given - Provider: Ailyn Gillespie RN)1405 (Given - Provider: Ailyn Gillespie RN) documented in this encounter Care Teams Breaker Mechanic Relationship Specialty Start Date End Date Cyndi Bynum MD PCP - General 06/10/12 08/08/13 [address] [place] [address] documented as of this encounter
--- OUTSIDE RECORDS SUMMARY | 2022-08-28 15:50 | XMS_ITS | Encounter Summary ---
:1990 Author Organization [facility] [place] [address] Care Team Providers Name Role Phone Cyndi Bynum MD Primary Care Provider Encounter Details Date Type Department Care Team Description 09/16/2012 Orders Only Gastroenterology at [facility] [place], Pain (Primary Dx) [facility] [place] [address] [facility] [phone] [place] [facility]STRO[facility]OLOGY DEPT. [place], [place] [address] Social History Tobacco Use Types Packs/Day Years Used Date Never Smoker Smokeless Tobacco: Never Used Alcohol Use Standard Drinks/Week Comments Yes 1.7 (1 standard drink = 0.6 oz pure alco hol) Sex Assigned at Date Recorded Not on file documented as of this encounter Plan of Treatment Not on filedocumented as of this encounter Visit Diagnoses Diagnosis Pain - Primary Generalized pain documented in this encounter Care Teams Hide Cleaner Relationship Specialty Start Date End Date Cyndi Bynum MD PCP - General 06/10/12 08/08/13 [address] [place] [address] documented as of this encounter
--- OUTSIDE RECORDS SUMMARY | 2022-08-28 15:50 | XMS_ITS | Encounter Summary ---
:1990 Author Organization [facility] [place] [address] Care Team Providers Name Role Phone Cyndi Bynum MD Primary Care Provider Reason for Visit Reason Comments Medication Refill Encounter Details Date Type Department Care Team Description 01/21/2013 Refill [place]ology at [facility] [place] Olive Xiong APRN [facility] [place] [phone] GASTROENTEROLOGY DEPT. [phone] [place], [place] [address] (Wo rk) Social History Tobacco [...] on filedocumented in this encounter Care Teams Dado Operator Relationship Specialty Start Date End Date Cyndi Bynum MD PCP - General 06/10/12 08/08/13 [address] [place] [address] documented as of this encounter
--- OUTSIDE RECORDS SUMMARY | 2022-08-28 15:50 | XMS_ITS | Encounter Summary ---
:1990 Author Organization [facility] [place] [address] Care Team Providers Name Role Phone Cyndi Bynum MD Primary Care Provider Reason for Visit Reason Onset Date Comments Medication Refill 06/25/2012 Encounter Details Date Type Department Care Team Description 06/25/2012 Refill Gastroenterology at [facility] Olive Xiong APRN [facility] [address] GASTROENTEROLOGY DEPT. [phone] [place], [place] [address] (Wo rk) Social History Tobacco [...] on filedocumented in this encounter Care Teams Drawer Waxer Relationship Specialty Start Date End Date Cyndi Bynum MD PCP - General 06/10/12 08/08/[address] [place] [address] documented as of this encounter
--- OUTSIDE RECORDS SUMMARY | 2022-08-28 15:50 | XMS_ITS | Encounter Summary ---
:1990 Author Organization [facility] [place] [address] Care Team Providers Name Role Phone Cyndi Bynum MD Primary Care Provider Encounter Details Date Type Department Care Team Description 06/16/2012 Hospital Encounter [place] [facility] [place] [address] [place] [address] GASTROENTEROLOGY DEPT. [place], [place] [address] Social History Tobacco Use Types [...] Everywhere. COLONOSCOPY: WHAT TO EXPECT AT HOME ([place])UPPER GI ENDOSCOPY: WHAT TO EXPECT AT HOME ([place])documented in this encounter Medications at Time of [...] Component Value Ref Test Analysis Performed At [facility] Range Method Time Signature Surgical CERNER Pathology ? [facility] Report ? Provider: ?? DANICA REYNA ? Pt. Name: ? ? SRINIVASAN, MAGDA Linares ? Acc #: ?[id number] ?Pt. MRN: ?[id number] ? Col Date: ?? 2 ? /Sex: [...] controls. ??These ? IHC studies provide t pathologist with adjunctive diagnostic information. ? Antibody [...] ? A - Labeled/Fixative: Colon, formalin. ? [facility] ? Provider: ?? DANICA RYENA ? Pt. Name: ? ? MAGDA SIMS ? Acc #: ?[id number] ?Pt. MRN: ?[id number] ? Col Date: ?? 2 ? /Sex: [...] MD PATHOLOGY/CYTOLOGY ORDERABLE S Performing Organization Address [place]/[facility]/ZIP Code Phon e Number [address] [facility] Specimen to Pathology (surgical or derm) (06/16/2012 2:16 PM EDT) Specimen Anatomical Collection Method Collection Time Receive d Time (Source) Location / / Volume Laterality AP Specimen 06/16/2012 2:16 PM 2 2:16 EDT PM EDT Narrative [facility] - 06/16/2012 2:16 PM E DT Specimen requisition ordered. ??Separate Pathology report to follow Danica Reyna MD PATHOLOGY/CYTOLOGY ORDERABLE S Performing Organization Address City/[facility] Phon e Number [facility] [place] [address] [facility] Specimen to [...] Organization Address City/State/ZIP Code Phon e Number [address] [facility] Specimen to Pathology (surgical or derm) (06/16/2012 2:16 PM EDT) Specimen Anatomical Collection Method Collection Time Receive d Time (Source) Location / / Volume Laterality AP Specimen 06/16/2012 2:16 PM 2 2:16 EDT PM EDT [facility] - 06/16/2012 2:16 PM E DT Specimen requisition ordered. ??Separate Pathology report to follow Danica Reyna MD PATHOLOGY/CYTOLOGY ORDERABLE S Performing Organization Address City/[facility]/ZIP Code Phon e Number [address] [facility] COLONOSCOPY (06/16/2012 1:13 PM EDT) Component Value Ref Test Analysis Performed At [facility] Range Method Time Signature COLONOSCOPY [facility] Endoscopy Patient Name: Magda Cokermaren ? Procedure Date: 06/16/2012 1:13 PM ? Date of : 1990 ? Age: 21 ? Order #: [id number] ? Procedure: ? Colonoscopy Indications: ? Generalized abdominal pain, Chronic ? diarrhea Providers: ? Danica Reyna MD, Ailyn Gillespie, ? RN, Jeremy Bob, Assisted Living Home Director Referring MD: ?Cyndi Bynum MD Requesting Provider: [...] . The ? colonoscopy was performed wit trang ? difficulty. The patient gabbi ated the [...] celsa ju and ? referring provider in 07-02 da ys. ? - Return to primary [...] Component Value Ref Test Analysis Performed At [facility] gist Range Method Time Signature UPPER GI [facility] ENDOSCOPY Endoscopy Patient Name: Magda Sims ? Procedure Date: 06/16/2012 1:12 PM ? Date of : 1990 ? Age: 21 ? Order #: [id number] ? Procedure: ? Upper GI endoscopy Indications: ? Dyspepsia Providers: ? Danica Reyna MD, Ailyn Gillespie, ? Jeremy COLEMAN, Assisted Living Home Director Referring MD: ?Cyndi Bynum MD Requesting Provider: [...] Provider: Ailyn Gillespie RN) ONCE PRN, Starting 06/16/12 at 1323, Until Thu06/16/12 at 1838, Itching, [...] RN) documented in this encounter Care Teams Planting Supervisor Relationship Specialty Start Date End Date Cyndi Bynum MD PCP - General 06/10/12 08/08/[address] [place] [address] documented as of this encounter
--- OUTSIDE RECORDS SUMMARY | 2022-08-28 15:50 | XMS_ITS | Encounter Summary ---
:1990 Author Organization [facility] [place] [address] Care Team Providers Name Role Phone Cyndi Bynum MD Primary Care Provider Reason for Visit Reason Onset Date Comments Prior Authorization 10/13/2012 PPI needed - or - Fo rmulary PPI to be ordered Encounter Details Date Type Department Care Team Description 10/13/2012 Telephone Gastroenterology at [facility] Olive Xiong, Prior Authorization [facility] Arlene smith APRN ([place] [address] [facility] Formulary PPI to be [phone] CENTER ordered) [place] [address] Social History Tobacco Use Types Packs/Day Years Used Date Never Smoker Smokeless Tobacco: Never Used Alcohol Use Standard Drinks/Week Comments Yes 1.7 (1 standard drink = 0.6 oz pure alco hol) Sex Assigned at Date Recorded Not on file documented as of this encounter Miscellaneous Notes Telephone Encounter - Latonia Rg RN - 10/13/2012 3:12 PM EST TC to Joseph MCDERMOTT Line - # - BALDEMAR Line Monitoring Manager Erick. Pt has previously tried Prevacid 30 mg PO twice daily, and recently has been taking Prilosec 40 mg PO Twice daily. Pt continues to have symptoms. Needing to change PPI treatment. Calling to determine which PPI is preferred that does not include either of the failed med's. Per Joseph Manuel Monitoring Manager, Nexium 40 mg PO twice daily does not require a PA. TC to [facility] in [place], [place] - # . Prescription for Nexium 40 mg PO twice daily # 60 2 refills given by phone. documented in this encounter Plan of Treatment Not on filedocumented as of this encounter Visit Diagnoses Not on filedocumented in this encounter Care Teams Embosser Apprentice Relationship Specialty Start Date End Date Cyndi Bynum MD PCP - General 06/10/12 08/08/13 [address] [facility] [place] [address] documented as of this encounter
--- OUTSIDE RECORDS SUMMARY | 2022-08-28 15:52 | XMS_ITS | Clinical Summary ---
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
--- OUTSIDE RECORDS SUMMARY | 2022-08-28 15:52 | XMS_ITS | Encounter Summary ---
:[address] [facility] Address [address] [place] [address] Care Team Providers Name Role Phone Unknown, Provider Primary Care Provider Encounter Details Date Type Department Care Team Description 07/14/2011 Results Only [facility] Vandana Glover MD Laboratory Services - [address] [place] [address] [address] [place] [place] [address] [phone] Social History Tobacco Use Types Packs/Day Years Used Date Never Assessed Sex Assigned at Date Recorded Not on file documented as of this encounter Plan of Treatment Not on filedocumented as of this encounter Procedures Procedure Name Priority Date/Time Associated Diagnosis Comme [facility] SURGICAL PATHOLOGY Routine 07/14/2011 0:00 EDT Re sults for this procedure are i n the results section. documented in this encounter Results SURGICAL PATHOLOGY (07/14/2011 0:00 EDT) Pathology Report: SURGICAL PATHOLOGY REPORT ? NAKUL JACKSON Reports generated via electr Kiind.me interface contain original data; ? LAB however they are lacking the format of the original report. ? Caution should be taken when reading/interpreting unformatted reports. ? Name: ? BEAUSOLEIL, MEGH AN R ? Accession #: ? [id number] ? : ? 1990 (Age: 20) ??F ? Collec t Date: ? 07/14/2011 ? Location: ? [facility] ? Re ceive Date: ? 07/15/2011 ? Provider: VANDANA GLOVER MD ? Copy to: OFELIA MOTTA MD ? Final Pathologic Diagnosis: ? Soft tissue of wrist, left dorsal mass, excision: ? - Ganglion cyst with myxomat ous degeneration. ? Document reviewed and electr onically signed by: ? CARLA N KALOF MD ? Report ??Date: 07/17/2011 13 :16 ? By the signature above, the attending physician certifies that he/she has ? personally conducted a gross and/or microscopic examination of the described ? specimens and rendered or co nfirmed the above diagnosis. ? Specimen(s) Received: ? Mass left dorsal wris t ? Clinical History: ? L dorsal wrist mass ? Gross Description: ? Received in formalin labelled Beausoleil, Magda and mass dorsal wrist are four hayes-white, firm, fi brous, unoriented soft tissues ranging from 0.4 x ?? 0.3 x 0.2 cm to 0.7 x 0.7 x 0.3 cm. ??The specimens are entirely submitted in one cassette. ??(Tu Cruz)/lyubov lorenz ? End of Report ? Specimen Performing Organization Address City/State/[facility] Code Phon e Number [facility] [address] [place] [address] SERVICES [facility] [address] [place] [address] documented in this encounter Visit Diagnoses Not on filedocumented in this encounter Care Teams Sandstone Inspector Repairer Relationship Specialty Start Date End Date Unknown, Provider, PCP - General 06/15/09 07/16/11 documented as of this encounter
--- OUTSIDE RECORDS SUMMARY | 2022-08-28 15:52 | XMS_ITS | Encounter Summary ---
:1990 Author Organization [facility] Address [address] [place] [address] Care Team Providers Name Role Phone Cyndi Bynum MD Primary Care Provider Encounter Details Date Type Department Care Team Description 08/02/2020 Lab Requisition [facility] Outr Resulting Lab, Pathology & Laboratory Provider [facility] [address] [place] [address] Social History Tobacco Use Types Packs/Day Years Used Date Never Assessed Sex Assigned at Date Recorded Not on file documented as of this encounter Plan of Treatment Not on filedocumented as of this encounter Procedures Procedure Name Priority Date/Time Associated Comments Diagnosis QUANTIFERON TB GOLD Routine 08/01/2020 15:26 Resu lts for this PLUS EDT procedure are i n the results section. documented in this encounter Results QUANTIFERON TB GOLD PLUS (08/01/2020 15:26 EDT) Quantiferon Negative Negative [facility] Interpretation Comment: [facility] No interferon-gamma response to M. tuberculosis antigens was detected. ??Infection with M. tuberculosis is unlikely. A single negative result does not exclude infection with M. tuberculosis. ??In patien SERVICES ts at high risk for M. tuber culosis infection, a second test should be considered in accordance with the 2017 ATS/IDSA/CDC Clinical Practice Guidelines for Diagnosis of Tuberculosis in Adults and Childr en. [Jet PALMA et. al. Clin. Infect. Dis. 2017:64 ( 2) ??: 111-115]. Results were obtained with the Qiagen QuantiFERON TB G old Plus NAIMA. TB1 Ag minus Nil 0.00 IU/ml [facility] TB2 Ag minus Nil 0.00 IU/mL [facility] Specimen Blood - Venous blood (substance) Narrative [facility] - 08/03/2020 13:35 EDT Results were obtained with the [employer] antiFERON-TB Gold Plus NAIMA. Performing Organization Address City/State/ZIP Code Phon e Number [facility] [address] [place] [address] SERVICES documented in this encounter Visit Diagnoses Not on filedocumented in this encounter Care Teams Director Telemetry Relationship Specialty Start Date End Date Cyndi Bynum MD PCP - General 07/17/11 [address] [place] [address] documented as of this encounter
--- OUTSIDE RECORDS SUMMARY | 2022-08-28 15:52 | XMS_ITS | Encounter Summary ---
:1990 Author Organization [facility] Address [address] [place] [address] Care Team Providers Name Role Phone Cyndi Bynum MD Primary Care Provider Encounter Details Date Type Department Care Team Description 08/07/2021 Lab Requisition [facility] Outr Resulting Lab, Pathology & Laboratory Provider [facility] [address] [place], [place] [id number] Social History Tobacco Use Types Packs/Day Years Used Date Never Assessed Sex Assigned at Date Recorded Not on file documented as of this encounter Plan of Treatment Not on filedocumented as of this encounter Procedures Procedure Name Priority Date/Time Associated Diagnosis Comme nts COVID-19 TEST [facility] Today 08/07/2021 11:38 LAB PCR EDT COVID-19 TESTING Routine 08/07/2021 11:38 Results for this EDT procedure are i n the results section. documented in this encounter Results COVID-19 TEST [facility] LAB PCR (08/07/2021 11:38 EDT) Specimen Swab - Entire nasopharynx (body structur e) Performing Organization Address City/State/ZIP Code Phon e Number [facility] [address] [place] [address] SERVICES COVID-19 TESTING (08/07/2021 11:38 EDT) COVID-19 rt-PCR Negative Negative [facility] Result Comment: [facility] This test has not been FDA c leared or approved. This test has been authorized by FDA under an EUA for use by authorized laboratories. This test has been authorized only for detection of nucleic acid fro SERVICES m 2018-nCo, not for any oth er viruses or pathogens. This test is only authorized for the duration of the declaration that circumstances exist justifying the authorization of emergency use of in vitro d iagnostic tests for detectio n and/or diagnosis of 2019-nCoV under section 564(b)(1) of Act, 21 U.S.C ?? 360bbb-3(b) (1), unless the authorization is terminated or revoked sooner. Negative results do not prec lude 2019-nCoV infection and should not be used as the sole basis for treatment or other patient management decisions. Negative results must be combined with clinical observa tions, patient history, and epidemiological informatio n. Performed on the [employer]ductions Fusion instrument Performing Lab [place] [facility] Lab [facility] SERVICES Specimen Swab Performing Organization Address City/State/ZIP Code Phon e Number [facility] [address] [place] [address] SERVICES documented in this encounter Visit Diagnoses Not on filedocumented in this encounter Care Teams Barrel Cap Setter Relationship Specialty Start Date End Date Cyndi Bynum MD PCP - General 07/17/11 [address] [place] [address] documented as of this encounter
--- OUTSIDE RECORDS SUMMARY | 2022-08-28 15:52 | XMS_ITS | Encounter Summary ---
:1990 Author Organization [facility] Address [address] [place] [address] Care Team Providers Name Role Phone Unavailable Primary Care Provider Unavailable Encounter Details Date Type Department Care Team Description 02/06/2009 Before PRISM Converted [facility]le[place] Maple conversion JAIME Rosenberg [address] [place] [address] [phone] [place] [address] Social History Tobacco Use Types Packs/Day Years Used Date Never Assessed Sex Assigned at Date Recorded Not on file documented as of this encounter Plan of Treatment Not on filedocumented as of this encounter Procedures Procedure Name Priority Date/Time Associated Diagnosis Comme [facility] CYTOPATHOLOGY Routine 02/06/2009 0:00 EDT Results for this procedure are i n the results section . documented in this encounter Results CYTOPATHOLOGY (02/06/2009 0:00 EDT) Pathology Report: CYTOPATHOLOGY REPORT ? MOTA ALL EN ? LAB Reports generated via electr onic interface contain original data; ? however they are lacking the format of the original report. ? Caution should be taken when reading/interpreting unformatted reports. ? Name: ? BEZEKEOLEIL, MEGH AN R ? Accession #: ? [id number] ? : ? 1990 (Age: 18) ??F ?Collect Date: ? 02/06/2009 ? Location: ? [facility] ? Receive Date: ? 02/08/2009 ? Provider: ?HARDIK MARION IBSLIME AUTOMOTIVE SALES EXECUTIVE ? Copy to: ? Specimen/Source: ? Pap Test, Cervix/Endocervix, ThinPrep Imaging System ? with manual evaluation ? Last Menstrual Period: ? 03/08/09 ? SPECIMEN ADEQUACY ? Satisfactory for Eval uation ? - transformation zone compon ent present ? GENERAL CATEGORIZATION ? Negative for Intraepi thelial Lesion or Malignancy ? Document reviewed and electr onically signed by: ? Lurdes Porter, CT(ASCP ) ? Report Date: ??03/20/ 2009 15:15 ? End of Report ? Specimen Performing Organization Address City/State/ZIP Code Phon e Number [facility] [address] [place] [address] SERVICES [facility] [address] [place] [address] documented in this encounter Visit Diagnoses Not on filedocumented in this encounter
--- OUTSIDE RECORDS SUMMARY | 2022-08-28 15:52 | XMS_ITS | Encounter Summary ---
:1990 Author Organization [facility] Address [address] [place] [address] Care Team Providers Name Role Phone Unknown, Provider Primary Care Provider Encounter Details Date Type Department Care Team Description 04/19/2010 Results Only [facility] Scar Bermudez MD Laboratory Services - [address] [place] [id number] [phone] Social History Tobacco Use Types Packs/Day Years Used Date Never Assessed Sex Assigned at Date Recorded Not on file documented as of this encounter Plan of Treatment Not on filedocumented as of this encounter Procedures Procedure Name Priority Date/Time Associated Diagnosis Comme [facility] SURGICAL PATHOLOGY Routine 04/19/2010 0:00 EDT Re sults for this procedure are i n the results section. documented in this encounter Results SURGICAL PATHOLOGY (04/19/2010 0:00 EDT) Pathology Report: SURGICAL PATHOLOGY REPORT ? NAKUL JACKSON Reports generated via Mixpanel interface contain original data; ? LAB however they are lacking the format of the original report. ? Caution should be taken when reading/interpreting unformatted reports. ? Name: ? BEAUSOLEIL, MEGH AN R ? Accession #: ? [id number] ? : ? 1990 (Age: 19) ??F ? Collec t Date: ? 04/19/2010 ? Location: ? [facility] ? Re ceive Date: ? 04/23/2010 ? Provider: MARTINEZ BERMUDEZ MD ? Copy to: OFELIA MOTTA MD ? Final Pathologic Diagnosis: ? Appendix, appendectom y: ? 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 ? Document reviewed and electr onically signed by: ? ABDELMONEM [facility] ? Report ??Date: 04/26/2010 15 :01 ? By the signature above, the attending physician certifies that he/she has ? personally conducted a gross and/or microscopic examination of the described ? specimens and rendered or co nfirmed the above diagnosis. ? Specimen(s) Received: ? Appendix ? Clinical History: ? Abd pain ? Gross Description: ? Received in formalin labelled Magda Sims and A ??appendix is an 8.0 cm in length by 0.9 cm i n diameter vermiform appendix, received with the ? proximal margin stapled clos ed. ??The proximal margin is black inked. ??The ? specimen includes a moderate amount of mesoappendix which has numerous vicki ?? within it. ??Sections reveal the appendiceal lumen measures up to 0.5 cm in ? diameter and does not contai n any fecaliths. ??The appendiceal wall is hayes-white and firm and measures 0.2 cm in thickness and does not contain any perforations. The entire appendix, except for the most proximal end, which contains multiple vicki, is submitted from p roximal to distal as (A1) to (A5) (A1 contains ? section with black ink on th e serosa, which is taken adjacent to the stapled ? proximal surgical margin). ? ?(Sharon Benito)/jah ? End of Report ? Specimen Performing Organization Address City/State/ZIP Code Phon e Number [facility] [address] [place] [address] SERVICES [facility] [address] [place] [address] documented in this encounter Visit Diagnoses Not on filedocumented in this encounter Care Teams Show Host/Hostess Relationship Specialty Start Date End Date Unknown, Provider, PCP - General 06/15/09 07/16/11 documented as of this encounter
--- OUTSIDE RECORDS SUMMARY | 2022-08-28 15:52 | XMS_ITS | Encounter Summary ---
:1990 Author Organization [facility] Address [address] [place] [address] Care Team Providers Name Role Phone Unknown, Provider Primary Care Provider Encounter Details Date Type Department Care Team Description 04/10/2008 Results Only [facility] - Senia Barba, Ameena flood, conversion SEMI AUTOMATIC SEWING MACHINE OPERATOR [address] [place] [address] [place] [address] [phone] (Wo rk) Social History Tobacco Use Types Packs/Day Years Used Date Never Assessed Sex Assigned at Date Recorded Not on file documented as of this encounter Plan of Treatment Not on filedocumented as of this encounter Procedures Procedure Name Priority Date/Time Associated Diagnosis Comme nts CYTOPATHOLOGY Routine 04/10/2008 0:00 EDT Results for this procedure are i n the results section . documented in this encounter Results CYTOPATHOLOGY (04/10/2008 0:00 EDT) Pathology Report: CYTOPATHOLOGY REPORT [facility] LAB Reports generated via electronic interface contain yolis ginal data; however they are lacking the format of the original re port. Caution should be taken when reading/interpreting unfo rmatted reports. Name: ? PREM SIMS ? Accession #: ? [id number] : ? 1990 (Age: 17) ??F ?Collect Date: ? 03/23 Location: ? [facility] ? Receive Date : ? 04/12/2008 Provider: ?HARDIK CHENEYAU SEMI AUTOMATIC SEWING MACHINE OPERATOR Copy to: ? Specimen/Source: ? ThinPrep Pap Test, Cervix/Endocervix, processed on [employer] ThinPrep Imaging System, with manual evaluation Last Menstrual Period: ? 04/01/08 Hormonal/Contraceptive Status: ? Oral contraceptives ? SPECIMEN ADEQUACY ? Satisfactory for Evaluation - transformation zone component present GENERAL CATEGORIZATION ? Negative for Intraepithelial Lesion or Malignan cy ? Document reviewed and electronically signed by: ? MUMTAZ Martinez(ASCP) ? Report Date: ??04/18/2008 12:55 End of Report Specimen Performing Organization Address City/State/ZIP Code Phon e Number [facility] [address] [place] [address] SERVICES [facility] [address] [place] [address] documented in this encounter Visit Diagnoses Not on filedocumented in this encounter Care Teams Lead Principal Technical Architect Relationship Specialty Start Date End Date Unknown, Provider, PCP - General 06/15/09 07/16/11 documented as of this encounter
--- OUTSIDE RECORDS SUMMARY | 2022-08-28 15:52 | XMS_ITS | Encounter Summary ---
:1990 Author Organization [facility] Address [address] [place] [address] Care Team Providers Name Role Phone Cyndi Bynum MD Primary Care Provider Encounter Details Date Type Department Care Team Description 02/18/2016 Results Only [facility]- [facility] Toño Castellanos, DANIELITO [address] [place], [place] [address] Social History Tobacco Use Types Packs/Day Years Used Date Never Assessed Sex Assigned at Date Recorded Not on file documented as of this encounter Plan of Treatment Not on filedocumented as of this encounter Procedures Procedure Name Priority Date/Time Associated Diagnosis Comme [facility] SURGICAL PATHOLOGY Routine 02/18/2016 9:47 EDT Re sults for this procedure are i n the results section. documented in this encounter Results SURGICAL PATHOLOGY (02/18/2016 9:47 EDT) Pathology Report: SURGICAL PATHOLOGY REPORT [facility] Reports generated via electronic interface contain yolis ginal data; LABORATORY however they are lacking the format of the original re port. SERVICES Caution should be taken when reading/interpreting unfo rmatted reports. Name: ? ADAM SIMS AN R ? Accession #: ? [id number] ? : ? 1990 (Age: [age]) ??F ? Collect Date: ? 02/18/2016 ? Location: ? [facility] ? Receive Date: ? 6 ? Provider: TOÑO MCDERMOTT Copy to: ? Final Pathologic Diagnosis: SKIN OF THIGH, RIGHT UPPER, SHAVE BIOPSY: - Melanocytic nevus, intradermal type, irritated. - Lesion extends to base of biopsy specimen. ?? Document reviewed and electronically signed by: JUANITA DEL CID MD Report ??Date: 02/22/2016 14:01 By the signature above, the attending physician certif ies that he/she has personally conducted a gross and/or microscopic examin ation of the described specimens and rendered or confirmed the above diagnosi s. Specimen(s) Received: Skin tag R upper thigh excision Clinical History: Clinical diagnosis code: L91.8 Gross Description: ? Received in formalin labelled with proper patient identification (initials B, M) and right inner thigh is a shave biopsy of a p ink-hayes to brown hairbearing papule (0.4 x 0.2 x 0.2 cm). The margins a re inked blue. The specimen is submitted intact as Bryson Epperson 02/21/2016 5:53 PM End of Report Specimen Performing Organization Address City/State/ZIP Code Phon e Number [facility] [address] [place] [address] SERVICES documented in this encounter Visit Diagnoses Not on filedocumented in this encounter Care Teams Ampoule Filler Relationship Specialty Start Date End Date Cyndi Bynum MD PCP - General 07/17/11 [address] [place] [id number] documented as of this encounter
--- OUTSIDE RECORDS SUMMARY | 2022-08-28 15:52 | XMS_ITS | Encounter Summary ---
:1990 Author Organization [facility] Address [address] [place] [address] Care Team Providers Name Role Phone Cyndi Bynum MD Primary Care Provider Encounter Details Date Type Department Care Team Description 09/25/2021 Lab Requisition [facility] Outr Resulting Lab, Pathology & Laboratory Provider [facility] [address] [place], [place] [id number] Social History Tobacco Use Types Packs/Day Years Used Date Never Assessed Sex Assigned at Date Recorded Not on file documented as of this encounter Plan of Treatment Not on filedocumented as of this encounter Procedures Procedure Name Priority Date/Time Associated Diagnosis Comme nts MEASLES IGG AB Routine 09/24/2021 18:45 Results f or this EDT procedure are i n the results section. RUBELLA IGG Routine 09/24/2021 18:45 Results for this ANTIBODY EDT procedure are i n the results section. MUMPS ANTIBODY IGG Routine 09/24/2021 18:45 Resul ts for this EDT procedure are i n the results section. documented in this encounter Results MEASLES IGG AB (09/24/2021 18:45 EDT) Measles IgG Ab PositiveComment: See Note [facility] Presence of LABORATORY SERVICES detectable measles virus IgG antibodies. Specimen Blood - Venous blood (substance) Performing Organization Address City/State/ZIP Code Phon e Number [facility] [address] [place] [address] SERVICES MUMPS ANTIBODY IGG (09/24/2021 18:45 EDT) Mumps Antibody IgG PositiveComment: See Note [facility] Presence of LABORATORY SERVICES detectable mumps virus IgG antibodies. Specimen Blood - Venous blood (substance) Performing Organization Address City/State/ZIP Code Phon e Number [facility] [address] [place] [address] SERVICES RUBELLA IGG ANTIBODY (09/24/2021 18:45 EDT) Rubella IgG Ab PositiveComment: See Note [facility] Positive for IgG LABORATORY SERVICES antibodies to Rubella virus. Specimen Blood - Venous blood (substance) Performing Organization Address City/[facility]/ZIP Code Phon e Number [facility] [address] [place] [address] SERVICES documented in this encounter Visit Diagnoses Not on filedocumented in this encounter Care Teams Machine Cloth Examiner Relationship Specialty Start Date End Date Cyndi Bynum MD PCP - General 07/17/[address] [place] [id number] documented as of this encounter
--- OUTSIDE RECORDS SUMMARY | 2022-08-28 15:52 | XMS_ITS | Encounter Summary ---
:1990 Author Organization [facility] Address [address] [place] [address] Care Team Providers Name Role Phone Cyndi Bynum MD Primary Care Provider Encounter Details Date Type Department Care Team Description 08/01/2020 Lab Requisition [facility] Outr Resulting Lab, Pathology & Laboratory Provider [facility] [address] [place] [address] Social History Tobacco Use Types Packs/Day Years Used Date Never Assessed Sex Assigned at Date Recorded Not on file documented as of this encounter Plan of Treatment Not on filedocumented as of this encounter Procedures Procedure Name Priority Date/Time Associated Diagnosis Comme nts HOLD SST Today 08/01/2020 15:26 Results for this EDT procedure are i n the results section. HEPATITIS B SURFACE Today 08/01/2020 15:26 Resu lts for this ANTIBODY EDT procedure are i n the results section. VARICELLA IGG Today 08/01/2020 15:26 Results fo r this ANTIBODY EDT procedure are i n the results section. documented in this encounter Results HOLD SST (08/01/2020 15:26 EDT) Pathologist Sig nature Hold Hold [facility] LABORATOR Y SERVICES Specimen Blood - Venous blood (substance) Performing Organization Address City/State/ZIP Code Phon e Number [facility] [address] [place] [address] SERVICES HEPATITIS B SURFACE ANTIBODY (08/01/2020 15:26 EDT) Hep B Surface Ab, >1000.0 See Note [facility] MEDICAL Quantitative Comment: mIU/mL [facility] Reference Range for Hep B Surface Ab, Quant: SERVICES Positive: >= 10.0 mIU/mL Negative: ??< 10.0 mIU/mL Patient is presumed to be immune to infection with Hep atitis B Virus. Hep B Surface Ab, Positive See Note [facility] Qualitative Comment: [facility] Reference Range for Hep B Surface Ab, Qual: SERVICES Unvaccinated: ??Negative Vaccinated: ??Positive Specimen Blood - Venous blood (substance) Performing Organization Address City/[facility]/ZIP Code Phon e Number [facility] [address] [place] [address] SERVICES VARICELLA IGG ANTIBODY (08/01/2020 15:26 EDT) Varicella IgG Ab PositiveComment: See Note [facility] Presence of LABORATORY SERVICES detectable Varicella Zoster virus IgG antibodies. Specimen Blood - Venous blood (substance) Performing Organization Address City/[facility]/ZIP Code Phon e Number [facility] [address] [place] [address] SERVICES documented in this encounter Visit Diagnoses Not on filedocumented in this encounter Care Teams Application Penetration Tester Relationship Specialty Start Date End Date Cyndi Bynum MD PCP - General 07/17/11 [address] [place], [place] [phone] documented as of this encounter
--- OUTSIDE RECORDS SUMMARY | 2022-08-28 15:52 | XMS_ITS | Encounter Summary ---
:1990 Author Organization [facility] Address [address] [place] [address] Care Team Providers Name Role Phone Unavailable Primary Care Provider Unavailable Encounter Details Date Type Department Care Team Description 06/12/2009 Orders Only [facility] Alia Motta MD Laboratory Services - [address] [place] [id number] [address] [place] [address] Social History Tobacco Use Types Packs/Day Years Used Date Never Assessed Sex Assigned at Date Recorded Not on file documented as of this encounter Plan of Treatment Not on filedocumented as of this encounter Procedures Procedure Name Priority Date/Time Associated Diagnosis Comme [facility] SURGICAL PATHOLOGY Routine 06/12/2009 0:00 EDT Re sults for this procedure are i n the results section. documented in this encounter Results SURGICAL PATHOLOGY (06/12/2009 0:00 EDT) Pathology Report: SURGICAL PATHOLOGY REPORT ? [facility] Reports generated via electr [employer] interface contain original data; ? LAB however they are lacking the format of the original report. ? Caution should be taken when reading/interpreting unformatted reports. ? Name: ? BEAUSOLEIL, MEGH AN R ? Accession #: ? [id number] ? : ? 1990 (Age: 18) ??F ? Collec t Date: ? 06/12/2009 ? Location: ? [facility] ? Re ceive Date: ? 06/13/2009 ? Provider: OFELIA MOTTA MD ? Copy to: ? Final Pathologic Diagnosis: ? Skin of abdomen, uppe r, punch biopsy: ? - Melanocytic nevus, compoun d type. ? Microscopic Description: ? Sections are of a dom e-shaped papule. ??The epidermis is of normal thickness but has a diminutive rete ar chitecture. ??The papule is formed by a circumscribed and symmetric compound proli feration of melanocytes. ??The junctional component ?? consists primarily of nests with single cells at the summit of the papule. ??The nests are generally small an d evenly spaced. ??The melanocytes are slightly ? enlarged but have relatively uniform round-oval nuclei and a moderate amount of cytoplasm containing melanin pigment. ??The dermal component consists of nests, ?? cords, and strands of simila r melanocytes showing light industrial supervisor maturation with ? descent. ??(Dr. Hawk)/[facility] ? Document reviewed and electr onically signed by: ? Shayna Hawk MD ? Report ??Date: 06/15/2009 17 :34 ? By the signature above, the attending physician certifies that he/she has ? personally conducted a gross and/or microscopic examination of the described ? specimens and rendered or co nfirmed the above diagnosis. ? Specimen(s) Received: ? Skin biopsy punch bio psy ? Clinical History: ? Nevus upper abdomen i ncreasing in size and painful ? Gross Description: ? Received in formalin labelled Beausoleil, Magda and nevus abd is a ? curling punch biopsy of hayes- brown skin measuring 0.3 cm in diameter and 0.1 cm ?? in thickness. ??The specimen is submitted intact in one cassette. ??(A. ? Pacheco)/[facility] ? End of Report ? Specimen Performing Organization Address City/State/[facility] Code Phon e Number [facility] [address] [place] [address] SERVICES [facility] [address] [place] [address] documented in this encounter Visit Diagnoses Not on filedocumented in this encounter
--- OUTSIDE RECORDS SUMMARY | 2022-08-28 15:52 | XMS_ITS | Encounter Summary ---
:1990 Author Organization [facility] Address [address] [place] [address] Care Team Providers Name Role Phone Cyndi Bynum MD Primary Care Provider Encounter Details Date Type Department Care Team Description 02/18/2016 Hospital Encounter [facility]re Unknown, Provider, [facility] [address] [facility] [phone] [place] [address] (Work) [phone] Social History Tobacco Use Types Packs/Day Years Used Date Never Assessed Sex Assigned at Date Recorded Not on file documented as of this encounter Discharge Disposition Disposition Code Departure Means Destination Home or Self Detention documented in this encounter Plan of Treatment Not on filedocumented as of this encounter Visit Diagnoses Not on filedocumented in this encounter Care Teams Automatic Beading Lathe Operator Relationship Specialty Start Date End Date Cyndi Bynum MD PCP - General 07/17/11 [address] [place], [place] [phone] documented as of this encounter
== END 2022-08-28 15:52 ==
PROVIDERS: Visit Provider Nurse Practitioner Family
DX: M79.672 Pain in left foot (principal)
CPT/HCPCS: 73630

== ENCOUNTER 2023-10-28 15:24 | Emergency (ER) | payer SELFPAY ==
--- NOTE | 2023-10-28 15:30 | DI.CT_ITS ---
Exam(s) CT FACIAL WO EXAM: CT FACIAL WO CLINICAL HISTORY: possible mandible dislocation. TECHNIQUE: Imaging Protocol: Axial computed tomography images with coronal and sagittal reformatted images were created and reviewed. No IV contrast COMPARISON: No exams were available for comparison FINDINGS: MAXILLOFACIAL CT SCAN: There is no evidence of facial fractures nor fluid the visualized paranasal sinuses. There is no michelle dence of orbital blowout fracture. With this to the mandible (as per request), there is no evidence of mandible fracture. TM joints are intact. No dislocation evident of the TM joints. No obvious degenerative changes in the TM joints. No abnormal lucencies around the teeth. IMPRESSION: No evidence of facial bone fractures nor orbital fractures. No evidence of mandible fracture nor mandible dislocation. If there is clinical concern for TMJ joint dysfunction than dedicated open and close mouth plain film views can be performed to determine if there is proper translation of these joints. RADIATION DOSE DELIVERED: Total DLP DATA REPOSITORY: All CT scans at this facility are submitted to the National Radiology Data Registry (NRDR) Dose Index Registry (DIR) with the [employer] (ACR). RADIATION OPTIMIZATION: All CT scans at this facility use at least one of these dose optimization te chniques: automated exposure control; mA and/or kV adjustment per patient size (includes targeted exa ms where dose is matched to clinical indication); or iterative reconstruction.
[2023-10-28 15:31] VITALS: BP 141/92; PULSE 78; RESP 16; O2SAT 98
--- NOTE | 2023-10-28 15:40 | ED.GENADUL_ITS ---
Discharge Plan Disposition Patient Disposition: Home Condition: Stable Discharge Details Clinical Impression: TMJ arthralgia Primary Care Provider: Lien Durham ED Provider: David Garcia Home Meds and New Rx's Prescriptions: Continued hydroxyzine HCl 25 mg tablet 25 mg PO PRN PRN Patient Comments: TAKE 1 TABLET BY MOUTH ONCE DAILY norgestimate-ethinyl estradiol [Sprintec (28)] 0.25-35 mg-mcg tablet 1 tab PO DAILY Patient Comments: TAKE 1 TABLET BY MOUTH ONCE DAILY Discharge Instructions Instructions: Temporomandibular Disorder (ED) Additional Instructions: You were seen in the emergency department for your acute jaw pain in the setting of chronic TMJ syndrome. Your CT scan of your facial bones shows no acute dislocation of your jaw and you do have quite good range of motion, this does not rule out a partial subluxation of the joint. Continue taking Tylenol and ibuprofen every 6 hours and ice the jaw, you may follow-up with an outpatient open and close jaw x-ray if you have persistent pain, please return to the ED for any sudden inability to open or close her jaw fully, any excessive drooling or severe vocal changes. Referrals: Lien Durham [Primary Care Provider] - Discharge Data Discharge Date/Time-TO BE ENTERED AT DEPARTURE: 10/28/23 16:27 Medical Decision Making This dictation utilizes [id number] dictation software and may contain unedi marci grammatical errors. 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 Onset and characteristics include onset after eating, known TMJ disorder - pain improving after ice and APAP/NSAIDs, has ROM to jaw, able to open and close- pain with clenching. Patients' medical history: TMJ syndrome. Family and social history: noncontributory. Pertinent exam findings / vital signs include ENT: Nares patent, no circumoral cyanosis, no facial swelling, chin is midline, there is no lateral deviation of the mandible, there is no severe preauricular tenderness, reports tenderness at the angle of the mandible on the left, dentition unremarkable, managing secretions well without excessive drooling, no vocal changes, uvula midline, no crepitus. Differential / pathologies of concern include dislocation of mandible, unlikely fracture, TMJ syndrome, dental pathology. Diagnostic studies of: -CT Facial Bones wo Contrast - no acute subluxation or fracture seen. Interventions of: -none. ED Course/Assessment/Plan: Counseled the patient on no acute subluxation or fracture of the mandible on CT facial bones, she does not have overt trismus and has good range of motion in the jaw I suspect that she may have exacerbation of TMJ syndrome or a brief dislocation followed by relocation as she was eating lunch. I counseled her on rolling a syringe [id number] between her posterior molars to see if this improves her situation if she has persistent pain at her follow-up with her doctor, strict return criteria for any trismus, worsening vocal changes or excessive drooling. Findings not consistent with mandible dislocation, airway compromise. Disposition of TMJ Arthralgia. Patient verbalized understanding of the plan and return to ED criteria and engaged in shared decision making. Medical Records Medical records reviewed: Yes I reviewed the patient's medical records. Imaging Data Radiologic Study: Imaging: CT Scan Radiologist's impression: EXAM: CT FACIAL WO CLINICAL HISTORY: possible mandible dislocation. TECHNIQUE: Imaging Protocol: Axial computed tomography images with coronal and sagittal reformatted images were created and reviewed. No IV contrast COMPARISON: No exams were available for comparison FINDINGS: MAXILLOFACIAL CT SCAN: There is no evidence of facial fractures nor fluid the visualized paranasal sinuses. There is no evidence of orbital blowout fracture. With this to the mandible (as per request), there is no evidence of mandible fracture. TM joints are intact. No dislocation evident of the TM joints. No obvious degenerative changes in the TM joints. No abnormal lucencies around the teeth. IMPRESSION: No evidence of facial bone fractures nor orbital fractures. No evidence of mandible fracture nor mandible dislocation. If there is clinical concern for TMJ joint dysfunction than dedicated open and close mouth plain film views can be performed to determine if there is proper translation of these joints. HPI General Date/Time Provider Initiated Documentation: 10/28/23 15:40 . 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 Quality described as stinging pain, worse when clenching her jaw, has limited ability to open her mouth widely, no radiation to inability to move the jaw, vocal changes, drooling, fever, trauma, severe pre-auricular pain. Severity is described as 5/10 after Tylenol, ibuprofen, and icing it. Palliating factors include nothing specific attempted. Provoking factors include nothing specific. Patient not anticoagulated. Related Data Home Medications Medication Instructions Recorded Confirmed norgestimate 0.25 mg-ethinyl 1 tab PO DAILY 11/27/20 10/28/23 estradiol 35 mcg tablet (Sprintec (28)) hydroxyzine HCl 25 mg tablet 25 mg PO PRN PRN 12/20/20 10/28/23 Allergies Allergy/AdvReac Type Severity Reaction Status Date / Time bupropion [From Wellbutrin] Allergy Intermediate Skin Rash Unverified 10/28/23 15:35 amoxicillin Allergy Hives Unverified 10/28/23 15:35 droperidol AdvReac Unverified 10/28/23 15:35 General Stated Complaint: Orthopedic RACHNAA: 4 Review of Systems All systems reviewed & are unremarkable except as noted in HPI and below PFSH All Active Problems TMJ arthralgia (Acute) COVID-19 (Acute) Spasm of muscle of lower back (Acute) Previous back surgery (Acute) Medical History No significant past medical history Surgical History Previous back surgery Social History Smoking/Tobacco Use Status: Never Smoking risk assessment performed?: Yes Alcohol Intake: current Alcohol Intake frequency: holidays/special occasions only Drug use: Never Substance use type: does not use Current gender identity: female Do you feel safe at home: Yes Do you feel safe in your relationship?: Yes Exam Narrative Exam Narrative: GENERAL APPEARANCE: Well-nourished, non-toxic, awake and alert, atraumatic, no acute distress. SKIN: Warm, pink, dry, intact, without rashes/lesions/ulcerations. HEAD: Normocephalic, atraumatic, normal hair distribution for gender/age. EYES: Pupils PERRLA, EOMs intact without nystagmus, normal conjunctiva, no exudates on lids/lashes. ENT: Nares patent, no circumoral cyanosis, no facial swelling, chin is midline, there is no lateral deviation of the mandible, there is no severe preauricular tenderness, reports tenderness at the angle of the mandible on the left, dentition unremarkable, managing secretions well without excessive drooling, no vocal changes, uvula midline, no crepitus NECK: Supple, trachea midline, painless cervical ROM. LUNGS/CHEST: Non-labored respirations, normal A/P diameter, symmetrical expansion, no chest wall deformity HEART (CV/PV): No peripheral edema, no JVD. ABDOMEN: Soft, non-distended, no guarding. MSK: Normal ROM, no swelling/deformity to bilateral UEs or LEs, moving all extremities without weakness, no cyanosis, spine midline without tenderness, normal curvature. NEURO: Mental Status AAOx4 - alert to person, place, time, events No facial droop, no forehead involvement. Motor: No focal weakness - strength 5/5 in bilateral UEs and LEs, proximal and distal, symmetric. Sensory: sensation intact to light touch globally. Gait normal: patient ambulated without ataxia into ED room. PSYCH: euthymic, cooperative, pleasant, appropriate speech Course Vital Signs Vital signs: Vital Signs Pulse 78 10/28/23 15:31 Respiratory Rate 16 10/28/23 15:31 Blood Pressure 141/92 H 10/28/23 15:31 Pulse Oximetry 98 10/28/23 15:31 Pulse 78 10/28/23 15:31 Respiratory Rate 16 10/28/23 15:31 Blood Pressure 141/92 H 10/28/23 15:31 Blood Pressure Position Sitting 10/28/23 15:31 Pulse Oximetry 98 10/28/23 15:31 Oxygen Delivery Method Room Air 10/28/23 15:31 Oxygen Flow Rate 0 10/28/23 15:31 Pain Level 4 10/28/23 15:31
== END 2023-10-28 16:27 | disposition home or self-care (01) ==
PROVIDERS: Emergency Provider Physician Assistant; PCP Registered Nurse
DX: R68.84 Jaw pain (principal); M26.622 Arthralgia of left temporomandibular joint
CPT/HCPCS: 99284; 70486; 99283

== ENCOUNTER → 2024-01-11 01:27 | Outpatient (CLI) | payer OTHER, SELFPAY ==
--- NOTE | 2024-01-11 11:53 | DI.RAD_ITS ---
Exam(s) XR THORACIC SPINE COMPLETE EXAM: XR THORACIC SPINE COMPLETE CLINICAL HISTORY: THORACIC BACK WITH RADICULOPATHY, H/O FALL, M54.14. TECHNIQUE: 2D digital imaging was performed of the thoracic spine. Three views were obtained. AP, swimmer's and lateral views were obtained. COMPARISON: MR MR THORACIC SPINE WO/W from 04/25/2021 FINDINGS: BONES: There is no fracture or destructive lesion. There are mild degenerative changes seen in the mi d and lower thoracic spine. DISKS:Alignment is within normal limits. Mild disc space narrowing is seen in the midthoracic spine. SOFT TISSUE: Visualized lungs are clear. IMPRESSION: No acute fracture or subluxation in the thoracic spine. DATA REPOSITORY: RADIATION DOSE DELIVERED:
--- NOTE | 2024-01-11 11:53 | DI.RAD_ITS ---
Exam(s) XR LUMBAR SPINE COMPLETE EXAM: XR LUMBAR SPINE COMPLETE CLINICAL HISTORY: FALL 3 WKS AGO,NOW BACK PAIN WITH ACHE,TINGLING IN UPPER THIGH/GROIN,m54.16. TECHNIQUE: 2D digital imaging was performed of the lumbar spine. Six images were obtained. AP, lat eral, right oblique, left oblique and L5-S1 spot views were obtained. COMPARISON: No exams were available for comparison FINDINGS: BONES: No fracture or destructive lesion. There are endplate osteophytes at the L4-5 level. No facet hypertrophy identified. DISKS: There is disc space narrowing at L4-L5. ALIGNMENT: Lumbar spinal alignment is within normal limits. No spondylolysis or spondylolisthesis. SOFT TISSUE: Normal. IMPRESSION: No acute fracture or subluxation in the lumbar spine. DATA REPOSITORY: RADIATION DOSE DELIVERED:
== END ==
PROVIDERS: PCP Registered Nurse; Visit Provider Registered Nurse
DX: M54.16 Radiculopathy, lumbar region (principal)
CPT/HCPCS: 72072; 72110

== ENCOUNTER 2024-04-20 07:52 | Emergency (ER) | payer OTHER, SELFPAY ==
[2024-04-20 08:00] VITALS: BP 121/96; PULSE 137; RESP 22; TEMP 36.4; O2SAT 99
[2024-04-20 08:22] LABS: Abs Immature Grans 0.05 10^3/uL (0.0-0.06); Absolute Basophil Count 0.03 10^3/uL (0.0-0.2); Absolute Monocyte Count 0.69 10^3/uL (0.1-0.8); Basophils % 0.2 %; Eosinophils % 0.2 %; HCT 41.6 % (36.0-46.0); HGB 13.9 g/dL (11.2-15.7); Immature Grans % 0.4 %; Lactate 1.9 mmol/L (0.6-1.4); Lymphocytes % 8.3 %; MCH 29.5 pg (27.0-33.0); MCHC 33.4 % (32.0-36.0); MCV 88 fL (80-95); Monocytes % 5.2 %; Neutrophils % 85.7 %; Platelet Count 313 10^3/uL (130-400); RBC 4.71 10^6/uL (3.93-5.22); RDW 12.4 % (11.7-14.6); RDW-SD 40.3 fL; WBC 13.21 10^3/uL (4.4-10.8)
[2024-04-20 08:25] LABS: Bilirubin Small (Negative); Blood Negative (Negative); Clarity Clear (Clear); Glucose Negative (Negative); Ketones 15 mg/dL (Negative); Leukocyte Esterase Trace (Negative); Nitrite Negative (Negative); Specific Gravity >= 1.030 (1.005-1.025); Urobilinogen 0.2 mg/dL (Up to 0.2); pH 5.5 (5-8)
[2024-04-20 08:25] LABS: Absolute Eosinophil Count 0.03 10^3/uL (0.0-0.7); Absolute Neutrophil Count 11.32 10^3/uL (1.2-6.7)
[2024-04-20] MEDS: Normal Saline 1,000 ML 1000 ML IV (08:31)
[2024-04-20] MEDS: Ondansetron 4 MG/2 ML VIAL IVP (08:32)
[2024-04-20] MEDS: Ketorolac 30 MG/ML VIAL IVP (08:32)
[2024-04-20] MEDS: ACETAMINOPHEN 1,000 MG/100 ML BTL 400 MG IVPB (08:32)
--- NOTE | 2024-04-20 08:37 | DI.US_ITS ---
Exam(s) US ABDOMEN LIMITED EXAM: US ABDOMEN LIMITED CLINICAL HISTORY: eval GB, RUQ pain TECHNIQUE: Ultrasound abdomen performed using standard protocol. COMPARISON: No exams were available for comparison FINDINGS: The exam is limited by patient body habitus. LIVER: Normal size. Normalechogenicity. No focal liver lesions are seen.. GALLBLADDER: Single 2 centimeter gallstone noted. No evidence of wall thickening. No pericholecystic fluid identified. DUEÑAS'S SIGN: Negative. BILIARY SYSTEM: No intrahepatic or extrahepatic biliary ductal dilation. RIGHT KIDNEY: Normal size. No evidence of renal calculi. No evidence of hydronephrosis. No suspicious renal mass. No cyst identified. PANCREAS: Normal where visualized. ABDOMINAL AORTA AND IVC: Visualized portions normal caliber. ASCITES: None seen. IMPRESSION: Exam limited by patient body habitus. Single gallstone noted. No wall thickening or biliary dilatat ion. DATA REPOSITORY:
[2024-04-20 08:39] LABS: ALT 22 U/L (14-59); AST 16 U/L (15-37); Albumin 3.3 g/dL (3.4-5.0); Alkaline Phosphatase 65 U/L (46-116); Anion Gap 13.8 mmol/L (3-11); BUN 11 mg/dL (7-18); Bilirubin, Total 0.5 mg/dL (0.2-1.0); CO2 20.2 mmol/L (21.0-32.0); CREATININE 1.1 mg/dL (0.55-1.02); Calcium 8.6 mg/dL (8.5-10.1); Chloride 102 mmol/L (98-107); Estimated GFR 67.62 (mL/min/1.73m2); Glucose 103 mg/dL (74-106); Lipase 29 U/L (16-77); Potassium 4.1 mmol/L (3.5-5.1); Sodium 136 mmol/L (136-145); Total Protein 7.4 g/dL (6.4-8.2)
--- NOTE | 2024-04-20 08:44 | ED.GENADUL_ITS ---
Discharge Plan Disposition Patient Disposition: Home Condition: Good Discharge Details Chief Complaint: Abd Prob Clinical Impression: Biliary colic, Dehydration Primary Care Provider: Lien Durham ED Provider: David Oliveros Home Meds and New Rx's Prescriptions: No Action hydroxyzine HCl 25 mg tablet 25 mg PO PRN PRN Patient Comments: TAKE 1 TABLET BY MOUTH ONCE DAILY norgestimate-ethinyl estradiol [Sprintec (28)] 0.25-35 mg-mcg tablet 1 tab PO DAILY Patient Comments: TAKE 1 TABLET BY MOUTH ONCE DAILY Discharge Instructions Instructions: Biliary Colic (ED) Additional Instructions: At this time you have been rehydrated. There is no evidence of cholecystitis or choledocholithiasis. However you do have a gallstone. You may need to have your gallbladder removed surgically not emergently. Please avoid any fatty foods, greasy foods, dairy products, as this can cause repeat spasm and exacerbation of your symptoms. Try to stick with a total fat-free diet moving forward. Take Tylenol and Motrin as needed for pain. Follow-up closely with your surgical training specialist Dr. Whitney/Dr. Floyd. We have placed a referral on your behalf. If you notice any worsening of your symptoms, or any new symptoms such as vomiting, diarrhea, fever, chills, shortness of breath, chest pain, numbness, weakness, or fainting , please return immediately to the emergency department for reevaluation. Please follow up with your primary care provider as soon as possible for reassessment and reevaluation. As always, it was a pleasure participating in your medical care today. Referrals: Lien Durham [Primary Care Provider] - Dave Whitney MD [ [facility] STAFF PHYSICIAN] - Shayna Floyd DO [OSTEOPATHIC DOCTOR] - HPI General Date/Time Provider Initiated Documentation: 04/20/24 08:04 . HPI Narrative: 33-year-old female with a past medical history of appendectomy, who presents today for right upper quadrant epigastric pain. Patient states that yesterday evening she had some mild achiness in the right upper quadrant. However starting at midnight the pain began sharp and stabbing. It was constant in nature but oscillated in severity. She has spaghetti last night for dinner, with red sauce. She has had 5 episodes of vomiting. Pain goes from the right upper quadrant to the right back. She denies any blood in her vomit. No diarrhea. She has not had pain like this before. No aggravating or relieving factors otherwise. She denies any urinary symptoms. No vaginal discharge. No other complaints at this time. Related Data Home Medications Medication Instructions Recorded Confirmed norgestimate 0.25 mg-ethinyl 1 tab PO DAILY 11/27/20 04/20/24 estradiol 35 mcg tablet (Sprintec (28)) hydroxyzine HCl 25 mg tablet 25 mg PO PRN PRN 12/20/20 04/20/24 Allergies Allergy/AdvReac Type Severity Reaction Status Date / Time bupropion [From Wellbutrin] Allergy Intermediate Skin Rash Unverified 10/28/23 15:35 amoxicillin Allergy Hives Unverified 10/28/23 15:35 droperidol AdvReac Unverified 10/28/23 15:35 General Stated Complaint: Abd Prob RACHANA: 3 Review of Systems All systems reviewed & are unremarkable except as noted in HPI and below Exam Narrative Exam Narrative: 1.Const: Well-nourished, Well-developed, appearing stated age 2.Eyes: PERRL, no conjunctival injection, and symmetrical lids. 3.ENT: Atraumatic external nose and ears. Notably dry MM. Neck: Symmetric, trachea midline, No thyromegaly. 4.CVS: +S1/S2, No murmurs or gallops. Peripheral pulses 2+ and equal in all extremities. Brisk capillary refill in all extremities. 5.RESP: Unlabored respiratory effort. Clear to auscultation bilaterally. No wheezes rales or rhonchi 6.GI: Moderate right upper quadrant tenderness and voluntary guarding. No left- sided tenderness, no lower abdominal tenderness. Positive Francis sign. 7.MSK: Normocephalic/Atraumatic, Extremities w/o deformity or ttp No cyanosis or clubbing, Normal movement of all extremities 8.Skin: Warm, Dry. No rashes or lesions. 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 Sensation grossly intact, no focal neurologic deficits. 10.Psych: (AAO) x3. Appropriate mood and affect Course Vital Signs Vital signs: Vital Signs Temperature 36.4 C L 04/20/24 08:00 Pulse 137 H 04/20/24 08:00 Respiratory Rate 22 04/20/24 08:00 Blood Pressure 121/96 H 04/20/24 08:00 Pulse Oximetry 99 04/20/24 08:00 Temperature 36.4 C L 04/20/24 08:00 Pulse 137 H 04/20/24 08:00 Respiratory Rate 22 04/20/24 08:00 Respiratory Effort Normal, Non-Labored 04/20/24 08:33 Blood Pressure 121/96 H 04/20/24 08:00 Blood Pressure Position Sitting 04/20/24 08:00 Pulse Oximetry 99 04/20/24 08:00 Oxygen Delivery Method Room Air 04/20/24 08:00 Oxygen Flow Rate 0 04/20/24 08:00 Pain Level 8 04/20/24 08:00 Lab/Test Results Lab/Test Results: Laboratory Tests Range/Units 04/20/24 04/20/24 08:06 08:15 WBC (4.4-10.8) 10^3/uL 13.21 H RBC (3.93-5.22) 10^6/uL 4.71 Hgb (11.2-15.7) g/dL 13.9 Hct (36.0-46.0) % 41.6 MCV (80-95) fL 88 MCH (27.0-33.0) pg 29.5 MCHC (32.0-36.0) % 33.4 RDW (11.7-14.6) % 12.4 Plt Count (130-400) 10^3/uL 313 MPV (8.0-11.0) fL 10.0 Immature Gran % % 0.4 Neutrophils % % 85.7 Lymphocytes % % 8.3 Monocytes % % 5.2 Eosinophils % % 0.2 Basophils % % 0.2 Nucleated RBC % (0.0-0.3) % 0.0 Absolute Neutrophils (1.2-6.7) 10^3/uL 11.32 H Absolute Lymphocytes (1.2-3.4) 10^3/uL 1.10 L Absolute Monocytes (0.1-0.8) 10^3/uL 0.69 Absolute Eosinophils (0.0-0.7) 10^3/uL 0.03 Absolute Basophils (0.0-0.2) 10^3/uL 0.03 VBG Lactate (0.6-1.4) mmol/L 1.9 H Urine Color (Yellow) Yellow Urine Clarity (Clear) Clear Urine pH (5-8) 5.5 Ur Specific [place] (1.005-1.025) >= 1.030 H Urine Protein (Neg-Trace) mg/dL 30 H Urine Ketones (Negative) mg/dL 15 H Urine Blood (Negative) Negative Urine Nitrite (Negative) Negative Urine Bilirubin (Negative) Small H Urine Urobilinogen (Up to 0.2) mg/dL 0.2 Ur Leukocyte Esterase (Negative) Trace H Urine Glucose (Negative) mg/dL Negative POC- Test(urine) Negative Medical Decision Making 33-year-old female with a past medical history of appendectomy, who presents today for right upper quadrant epigastric pain. Patient states that yesterday evening she had some mild achiness in the right upper quadrant. However starting at midnight the pain began sharp and stabbing. It was constant in nature but oscillated in severity. She has spaghetti last night for dinner, with red sauce. She has had 5 episodes of vomiting. Pain goes from the right upper quadrant to the right back. She denies any blood in her vomit. No diarrhea. She has not had pain like this before. No aggravating or relieving factors otherwise. She denies any urinary symptoms. No vaginal discharge. No other complaints at this time. Exam demonstrates notable right upper quadrant tenderness, voluntary guarding. No lower abdominal tenderness. Dry mucous membranes. Differential is highest for biliary colic versus cholecystitis. She has no jaundice to suggest choledocholithiasis. Will get an ultrasound, treat her pain, give Toradol and Ofirmev, rehydrate with a liter of LR, monitor closely and reassess. 10:27 AM Ultrasound shows evidence of single gallstone, but no wall thickening or biliary dilatation. No ductal dilatation. Laboratory workup shows mild white count, no bandemia. After Toradol over may have Zofran Compazine and morphine patient is feeling much better. Symptoms have completely resolved. She feels well is tolerated p.o. No more vomiting or dry heaving. Patient feels well and feels comfortable going home. Suspect biliary colic. No evidence of cholecystitis, or choledocholithiasis, or ascending cholangitis. Discussed the case briefly with surgery/Dr. Whitney. He will follow-up outpatient with the patient for further discussions of nonemergent cholecystectomy. No indication for emergent surgical management at this time based on the patient's labs, ultrasound findings and current physical assessment. Repeat exam shows no evidence of an acute surgical abdomen. Patient stable for discharge. Will give Zofran for home. Discussed red flags for which to return. I have extensively reviewed the treatment plan and discharge instructions with the patient and their family. I have addressed all patient concerns at this time. The patient and family was made aware of what symptoms to monitor for that would warrant a return to the emergency department. Discussed the plan with the patient and family, they demonstrate verbal understanding and agreement with our assessment and plan at this time. The documentation in this chart was dictated using [employer] dictation software. Please excuse any dictation errors. FINDINGS: The exam is limited by patient body habitus. LIVER: Normal size. Normalechogenicity. No focal liver lesions are seen.. GALLBLADDER: Single 2 centimeter gallstone noted. No evidence of wall thickening. No pericholecystic fluid identified. FRANCIS'S SIGN: Negative. BILIARY SYSTEM: No intrahepatic or extrahepatic biliary ductal dilation. RIGHT KIDNEY: Normal size. No evidence of renal calculi. No evidence of hydronephrosis. No suspicious renal mass. No cyst identified. PANCREAS: Normal where visualized. ABDOMINAL AORTA AND IVC: Visualized portions normal caliber. ASCITES: None seen. IMPRESSION: Exam limited by patient body habitus. Single gallstone noted. No wall thickening or biliary dilatation. Quality:SDOH Health Related Social Needs: No Data to Display PFSH All Active Problems (Updated 04/20/24 @ 08:46 by David Oliveros DO) Dehydration (Acute) Biliary colic (Acute) COVID-19 (Acute) Spasm of muscle of lower back (Acute) Previous back surgery (Acute) Medical History (Updated 04/20/24 @ 10:31 by David Oliveros DO) No significant past medical history Surgical History (Updated 04/20/24 @ 08:46 by David Oliveros DO) History of appendectomy Social History Smoking/Tobacco Use Status: Never Smoking risk assessment performed?: Yes Alcohol Intake: current Alcohol Intake frequency: holidays/special occasions only Drug use: Never Substance use type: does not use Housing: house Current gender identity: female Do you feel safe at home: Yes Do you feel safe in your relationship?: Yes
[2024-04-20 08:54] LABS: Bacteria Few HPF (Negative); C & S Indicated? No/Sq. Contamination; Casts 0-2 Hyaline LPF (Negative); Crystals Negative HPF (Negative); Epithelial Cells Moderate HPF (Negative); Mucus Moderate (Negative); RBC Negative HPF (0-2)
[2024-04-20] MEDS: MORPHine 4 MG/ML SYR (09:01)
[2024-04-20] MEDS: Prochlorperazine 10 MG/2 ML VIAL IVP (09:18)
[2024-04-20] MEDS: Ondansetron O.D.T. 4 MG TABEF, 3 TABS/BTL PO (10:43)
[2024-04-20 10:44] VITALS: BP 104/66; PULSE 94; RESP 14; TEMP 36.6; O2SAT 97
== END 2024-04-20 10:44 | disposition home or self-care (01) ==
PROVIDERS: Emergency Provider Student in an Organized Health Care Education/Training Program; PCP Registered Nurse
DX: K80.20 Calculus of gallbladder without cholecystitis without obstruction (principal); E86.0 Dehydration
CPT/HCPCS: 36415; 80053; 83690; 96361; 96365; 96375; 99284; 76705; 81003; 81015; 83605; 85025; J0131; J0780; J1885; J2270; J2405

== ENCOUNTER 2024-05-04 09:47 | Day surgery (SDC) | payer OTHER, SELFPAY ==
--- NOTE | 2024-05-03 16:31 | W.PM.DSUDISC ---
Date of service: 05/04/24 Time of Service: 15:23 Discharge Plan Disposition Patient Disposition: Home Condition: Good Discharge Details Reason For Visit: Laparoscopic cholecystectomy Attending Provider: Dave Whitney Primary Care Provider: Lien Durham Home Meds and New Rx's Prescriptions: New tramadol 50 mg tablet 50 mg PO Q8H PRNQty: 12 0RF Rx Instructions: Take 1 tablet by mouth up to every 8 hours if needed for severe pain. Continued ondansetron HCl 4 mg tablet 4 mg PO Q8H Mounjaro 5 mg/0.5 mL pen injector 5 mg subcut QWEEK ibuprofen [Motrin IB] 200 mg tablet 800 mg PO Q6H PRN scopolamine base 1 mg over 3 days patch 3 day 1 patch transdermal Q3D PRN (Reason: nausea and vomiting) Qty: 4 0RF Rx Instructions: Apply 1 patch according to the instructions before going to sleep the night before surgery hydroxyzine HCl 25 mg tablet 25 mg PO PRN PRN Patient Comments: TAKE 1 TABLET BY MOUTH ONCE DAILY norgestimate-ethinyl estradiol [Sprintec (28)] 0.25-35 mg-mcg tablet 1 tab PO DAILY Patient Comments: TAKE 1 TABLET BY MOUTH ONCE DAILY Discharge Instructions Instructions: Cholecystectomy, Laparoscopic Surgery Additional Instructions: Tarah, we are able to get your gallbladder out today without much difficulty. Everything went very smoothly. Hopefully will make a quick recovery. Please keep your lifting less than 10 pounds over the next week or 2. I would expect a little bit of bruising over the surgical sites, so do not be alarmed if you notice that. Please let me know if the skin starts to turn bright red, or there is any worrisome discharge from the wounds. Hopefully you can feel wonderful, but if you need anything at all, please do not hesitate to call at any point. Otherwise I look forward to seeing you in the office. 1. Resume all of your regular medications. 2. Alternate heating pads and ice packs as needed for pain 3. Alternate [id number] Tylenol and ibuprofen every 6 hours for the first 2 days. Use [] if needed for more severe pain 4. Leave bandage in place for 24 hours, then remove. 5. Shower with warm soapy water. Pat dry. Use a bandaid if needed to protect your clothing. 6. No soaking or tub baths until I see you in the office. 7. No heavy lifting until I see you in the office. 8.Call the office (or go directly to the emergency room after hours) if you notice any of the following: Develop chills (warm to touch), or if you have a thermometer and your temperature is above 101 Difficulty breathing or difficultly swallowing Persistent vomiting Any bleeding ? exceeding one tablespoon 9. Call your physician if the site where your intravenous was started becomes red, swollen, painful, and warm to touch. Activity:: No heavy lifting Remove Dressings/Wound Care:: 24 hours Shower/Bathe:: 24 hours Diet:: As Tolerated Discharge Orders Discharge Orders: Discharge Order (Routine); Ordered 05/03/24 Ordered By: Dave Whitney DS: Diagnosis Discharge Diagnosis (1) Biliary colic: Status: Acute Asessment and Plan: Status post laparoscopic cholecystectomy outpatient postoperative follow-up
--- NOTE | 2024-05-03 16:33 | W.PM.OP ---
Date of service: 05/04/24 Time of Service: 15:34 Operative Note Operative Note DATE OF PROCEDURE: 05/04/24 PRE-OP DIAGNOSIS: Biliary colic PROCEDURE: Laparoscopic cholecystectomy. SURGEON: Dave Whitney HEALTHCARE INTERPRETER: Cate Parekh ANESTHESIA TYPE: General LMA/ETT Refer to Anesthesia Record ESTIMATED BLOOD LOSS: 25 PATHOLOGY: other (Gallbladder) COMPLICATIONS: None Patient was transported to: PACU Indications: Tarah is a 33-year-old woman with symptomatic biliary colic. Procedure Description: After satisfactory induction of general anesthesia, I prepped and draped the abdomen in usual fashion. Next, I began with a periumbilical incision. I dissected down to the fascia and elevated it with Gianfranco clamps. I incised it sharply. Next, I passed a 12 mm operating port in the umbilical site. I secured it to the fascia with 0 Vicryl stitches. I then insufflated the peritoneal cavity. Next I inserted a 5 mm 30 degree scope and examined the underlying viscera. There was no evidence of injury created upon entry. I then placed the patient in some reverse Trendelenburg and left side down positioning. Then, with the assistance of the laparoscope, I used local anesthetic to anesthetize the midepigastric and 2 right upper quadrant port sites. Under the vision of the laparoscope, I passed 3 more 5 mm ports. There were some filmy adhesions of the greater omentum up onto the dome of the gallbladder and gallbladder body. These were dissected using combination of cautery, as well as blunt dissection. I then grasped the gallbladder fundus and elevated cephalad. With the assistance of indocyanine green, I began by dissecting the gallbladder infundibulum. There were extensive adhesions. I worked in a lateral to medial fashion. Once I skeletonized the cystic duct and cystic artery, with a satisfactory critical view of safety, I doubly clipped and divided them. I then used electrocautery to dissect the gallbladder off the gallbladder fossa. I passed the gallbladder into an Endo Catch bag and removed it by way of the umbilical site. I examined the surgical field. It was hemostatic. I then removed the 5 mm ports under the vision of the laparoscope. Finally, I removed the umbilical port site and closed the fascia with Vicryl stitches. Sites were irrigated, and the skin was closed with subcuticular stitches. Bandages were applied, patient was awakened from anesthesia, and transferred to the recovery unit.
[2024-05-04] VITALS (9 sets, daily range): BP systolic 107–122; BP diastolic 62–84; PULSE 68–78; RESP 16–19; TEMP 36.3–36.8; O2SAT 96–99; BMI 37.9
--- NOTE | 2024-05-04 06:08 | ANES.PREOP_ITS ---
General Info Date of Service Date Performed: 05/04/24 Height: 5 ft 3 in Weight: 97.069 kg Body Mass Index (BMI): 37.9 Surgical Procedure: Operation Date: 05/04/24 11:55 Proposed Procedure Side Surgeon p Cholecystectomy Laparoscopic Dave Whitney MD Meds Allergies and Home Medications Allergies Allergy/AdvReac Type Severity Reaction Status Date / Time bupropion [From Wellbutrin] Allergy Intermediate Skin Rash Verified 05/04/24 09:57 amoxicillin Allergy Hives Verified 05/04/24 09:57 droperidol AdvReac Nausea Verified 05/04/24 09:57 Home Medication Medication Instructions Recorded norgestimate 0.25 mg-ethinyl 1 tab PO DAILY 11/27/20 estradiol 35 mcg tablet (Sprintec (28)) hydroxyzine HCl 25 mg tablet 25 mg PO PRN PRN 12/20/20 ibuprofen 200 mg tablet (Motrin IB) 800 mg PO Q6H PRN 04/26/24 ondansetron HCl 4 mg tablet 4 mg PO Q8H 04/26/24 scopolamine base 1 mg over 3 days 1 patch transdermal Q3D PRN nausea 04/26/24 transdermal patch and vomiting #4 ea tirzepatide 5 mg/0.5 mL 5 mg subcut QWEEK 04/26/24 subcutaneous pen injector (Cesar) Current Visit Medications: Current Medications Generic Name Dose Route Start Last Admin Trade Name Freq PRN Reason Stop Dose Admin Acetaminophen 1,000 mg 05/04/24 06:00 Acetaminophen 500 Mg Tab PO 05/04/24 23:59 PREOP TERESA Celecoxib 200 mg 05/04/24 06:00 Celecoxib 200 Mg Cap PO 05/04/24 23:59 PREOP TERESA Gabapentin 600 mg 05/04/24 06:00 Gabapentin 300 Mg Cap PO 05/04/24 23:59 PREOP TERESA Hydromorphone HCl 0.2 mg 05/03/24 16:34 Hydromorphone 2 Mg/Ml Syr IVP 06/02/24 16:33 Q1H PRN PRN Ringer's Solution 1,000 mls @ 80 mls/hr 05/04/24 06:00 IV 05/04/24 23:59 INFUSION TERESA Cefazolin Sodium/Dextrose 2 gm in 50 mls @ 100 mls/hr 05/04/24 06:00 Ancef Duplex IVPB 05/04/24 23:59 PREOP TERESA IV Miscellaneous Supplies 1 each 05/04/24 06:00 Iv Access IV 05/04/24 23:59 DIRECTED TERESA Indocyanine Green 5 mg 05/04/24 06:00 Indocyanine Green 25 Mg Vial IVP 05/04/24 23:59 DIRECTED TERESA Sodium Chloride 0 ml 05/04/24 06:00 Normal Saline Flush 10 Ml Syr IV 05/04/24 23:59 PRN PRN Sodium Chloride 0 ml 05/04/24 06:00 Normal Saline 10 Ml Vial IJ 05/04/24 23:59 DIRECTED PRN Sterile Water 0 ml 05/04/24 06:00 Water,Injection,Sterile 10 Ml Vial IJ 05/04/24 23:59 DIRECTED PRN Tramadol HCl 50 mg 05/03/24 16:34 Tramadol 50 Mg Tab PO 06/02/24 16:33 Q6H PRN PRN Pain PFSH Active Problems Active Problems: Problem Status Onset Code Dehydration E86.0 Biliary colic K80.50 COVID-19 U07.1 Spasm of muscle of lower back M62.830 Photophobia H53.149 Neck pain, acute M54.2 Fatigue R53.83 Nausea R11.0 Headache R51.9 Medical History Medical History Severe postoperative vomiting No significant past medical history Medical History Comments:: Severe PONV Surgical History Surgical History History of surgical removal of ganglion cyst H/O lumbar discectomy S/P cervical spinal fusion (~05/2023) Previous back surgery (~2018) History of appendectomy Tobacco Smoking/Tobacco Use Status: Never Alcohol Alcohol Intake: current Alcohol intake frequency: holidays/special occasions only Substance Use Substance use: Never Substance use type: does not use Vital Signs and Lab Results Vital Signs Most Recent Vital Signs in EMR: Temp Pulse Resp BP Pulse Ox 36.4 C L 68 16 113/84 96 05/04/24 10:10 05/04/24 10:10 05/04/24 10:10 05/04/24 10:10 05/04/24 10:10 Lab Results Blood Type / Crossmatch: No Data to Display Complete Blood Count: White Blood Count 13.21 10^3/uL (4.4-10.8) H 04/20/24 08:15 Red Blood Count 4.71 10^6/uL (3.93-5.22) 04/20/24 08:15 Hemoglobin 13.9 g/dL (11.2-15.7) 04/20/24 08:15 Hematocrit 41.6 % (36.0-46.0) 04/20/24 08:15 Platelet Count 313 10^3/uL (130-400) 04/20/24 08:15 Venous Blood Lactate 1.9 mmol/L (0.6-1.4) H 04/20/24 08:15 Complete Metabolic Panel: Sodium 136 mmol/L (136-145) 04/20/24 08:15 Potassium 4.1 mmol/L (3.5-5.1) 04/20/24 08:15 Chloride 102 mmol/L (98-107) 04/20/24 08:15 Carbon Dioxide 20.2 mmol/L (21.0-32.0) L 04/20/24 08:15 BUN 11 mg/dL (7-18) 04/20/24 08:15 Creatinine 1.1 mg/dL (0.55-1.02) H 04/20/24 08:15 Est GFR (CKD-EPI 2020) 67.62 (mL/min/1.73m2) 04/20/24 08:15 Calcium 8.6 mg/dL (8.5-10.1) 04/20/24 08:15 Albumin 3.3 g/dL (3.4-5.0) L 04/20/24 08:15 Glucose 103 mg/dL (74-106) 04/20/24 08:15 Liver Function Panel: Alanine Aminotransferase (ALT/SGPT) 22 U/L (14-59) 04/20/24 08: 15 Aspartate Amino Transf (AST/SGOT) 16 U/L (15-37) 04/20/24 08:15 Coagulation Panel: No Data to Display Cardiac Panel: No Data to Display Arterial Blood Gas: No Data to Display Venous Blood Gas: No Data to Display Pancreas Panel: Lipase 29 U/L (16-77) 04/20/24 08:15 Thyroid Panel: No Data to Display Infectious Disease: No Data to Display Blood Cultures: No Data to Display Toxicology Panel: No Data to Display Panel: No Data to Display Imaging and Studies Imaging and Studies Study information below may be from another EMR and interpreted by another provider. Please see original notes in EMR for more complete details. EKG Summary: 09/12: sinus. Anesthesia Assessment and Plan Anesthesia History Personal History: PONV Family History: No Family History of Anesthesia Complications Exercise Tolerance Exercise Tolerance: Metabolic Equivalents>4 Cardiac & Pulmonary Exam Cardiac Exam: Normal S1/S2 Heart Sounds Pulmonary Exam: Clear Bilateral Breath Sounds Implantable Cardiac Device Does patient have a Pacemaker or an ICD?: No Airway Exam Known Difficult Airway: No Mallampati Class: 2 Mouth Opening: Normal (> 3cm) Thyromental Distance: Greater than 3 cm Neck Range of Motion: Full ROM Neck Circumference: Normal Teeth Condition: Normal Dentition ASA Classification ASA Score: ASA 2 Emergency Case?: No NPO Status NPO Status: NPO Clears >2 hours, Solids >8 hours Status Status: Negative HCG Anesthesia Plan Resuscitation Status: Full Code Anesthesia Technique: General Anesthesia Airway Planned: Endotracheal Tube Monitors Used: Standard Monitors Preoperative Comments:: 33 yo female for lap hilda. hx of severe PONV - scop patch placed at home. olanzapine ordered. Has had good success with scop patch and zofran, will hold on olonzapine. Sig PMHx: BMI 38 (tirzepatide).
[2024-05-04] MEDS: Acetaminophen 500 MG TAB 1000 MG PO (10:14)
[2024-05-04] MEDS: Gabapentin 300 MG CAP 600 MG PO (10:14)
[2024-05-04] MEDS: Indocyanine green 25 MG VIAL 5 MG IVP (10:15)
[2024-05-04] MEDS: Celecoxib 200 MG CAP PO (10:15)
[2024-05-04] MEDS: Lactated Ringers 1,000 ML 80 ML IV ×2 (10:16→15:58)
[2024-05-04] MEDS: ceFAZolin 2 GM/50 ML BAG IVPB (13:52)
[2024-05-04] MEDS: Bupivacaine 0.25% Pres-Free W/EPI 30 ML VIAL (14:33)
--- NOTE | 2024-05-04 15:12 | GB_PTH ---
PATIENT: Magda Rivers LOC: [facility] U#:[id number] AGE/SX: 33/F ROOM: RE05/04/[address]: Dave Whitney MD : 1990 BED: DIS: 05/04/2024 SPEC #: [id number] RECD: 05/04/24 17:39 STATUS: IDALMIS REQ #: [id number] HARIKA: 05/04/24 15:[address]: Dave Whitney DEPT: Surgical Specimen RECD BY: Belle Khoury ENTERED: 05/04/24 17:40 SP TYPE: GB OTHR DR: Lien Durham Tissues: 1 - GALLBLADDER Procedures: GROSS AND MICRO LEVEL 3 Comments: [id number]
[2024-05-04] MEDS: LORazepam 2 MG/ML VIAL 0.5 MG IVP ×2 (15:37→15:56)
--- NOTE | 2024-05-04 15:41 | W.ANESPOSTOP ---
Postoperative Evaluation Date, Time and Location Date Performed: 05/04/24 Time Performed: 15:41 Patient Location: PACU Vital Signs Most Recent Imported Vital Signs: Most Recent Vital Signs Temp Pulse Resp BP Pulse Ox 36.4 C L 68 16 113/84 96 05/04/24 10:10 05/04/24 10:10 05/04/24 10:10 05/04/24 10:10 05/04/24 10:10 Pain Score Most Recent Pain Score: Most Recent Pain Score Pain Level 0 05/04/24 10:10 Assessment Mental Status: Awake (Alert & Oriented to Patient Baseline) Airway and Respiratory Function: Patent airway with normal (patient baseline) respiratory exam Cardiovascular Function: Hemodynamically Stable Hydration Status: Adequately Hydrated Nausea & Vomiting: Active Nausea or Vomiting Present Nausea and Vomiting Management: Nausea and vomiting active, being addressed with medication Pain: Pain is tolerable per patient Peripheral Nerve Block: Patient did not receive a nerve block
[2024-05-04] MEDS: traMADol 50 MG TAB PO (16:52)
== END 2024-05-04 17:10 | disposition home or self-care (01) ==
LOC: SUR 09:47
PROVIDERS: PCP Registered Nurse; Visit Provider Surgery
PROC: 0FT44ZZ Resection of Gallbladder, Percutaneous Endoscopic Approach (ICD-10-PCS; CPT 47562; principal; 2024-05-04 11:45)
DX: K80.50 Calculus of bile duct without cholangitis or cholecystitis without obstruction (principal); Z68.38 Body mass index [BMI] 38.0-38.9, adult
CPT/HCPCS: 47562; 81025; 88304; J0665; J0690; J1100; J1805; J1885; J2060; J2405; J2704; J3475